=== PATIENT | female | born 1950 | race Caucasian/White ===

== ENCOUNTER 2017-01-15 09:57 | Observation (INO) | payer OTHER ==
[~2017-01-15] VITALS: Ht 165.1 cm; Wt 59.4 kg
[2017-01-15] MEDS ORDERED: SODIUM CHLORIDE 0.9% 1,000 ML IV ONE (10:44)
[2017-01-15] MEDS ORDERED: MORPHINE SULF INJ 2 MG/ML SYRINGE 1ML IV ONE (10:45)
[2017-01-15] MEDS ORDERED: ONDANSETRON HCL 4 MG/2 ML VIAL IV ONE (10:45)
[2017-01-15 11:35] LABS: Albumin 3.3 g/dL (3.4-5.0); Alkaline Phosphatase 105 U/L (45-117); Anion Gap 10 (5-15); Aspartate Aminotransferase 10 U/L (15-37); BUN/Creatinine Ratio 10.7; Basophils # (auto) 0 uL; Basophils % (auto) 0.3 % (0.0-2.0); Bilirubin, Total 0.4 mg/dL (0.2-1.0); Blood Urea Nitrogen 6 mg/dL (7-18); Calcium 8.8 mg/dL (8.5-10.1); Carbon Dioxide 27 mmol/L (21-32); Chloride 104 mmol/L (98-107); Eosinophils # (auto) 0 uL; Eosinophils % (auto) 0.3 % (0.0-7.0); GFR African American 140 mL/min; GFR Non-African American 115 mL/min; Glucose 113 mg/dL (74-106); Hematocrit 52.7 % (36.0-46.0); Hemoglobin 17.8 g/dL (12.2-16.2); Lymphocytes # (auto) 2.4 uL; Lymphocytes % (auto) 14.8 % (10.0-50.0); Magnesium 2.2 mg/dL (1.6-2.6); Mean Corpuscular Hemoglobin 30.5 pg (28.0-32.0); Mean Corpuscular Hgb Conc. 33.8 g/dL (32.0-36.0); Mean Corpuscular Volume 90.5 fL (80.0-100.0); Mean Platelet Volume 8.5 fL (7.4-10.4); Monocytes # (auto) 1.1 uL; Monocytes % (auto) 6.8 % (0.0-12.0); Neutrophils # (auto) 12.8 uL; Neutrophils % (auto) 77.8 % (37.0-80.0); Platelet Count (auto) 253 10^3/uL (140-450); Potassium 4.1 mmol/L (3.5-5.1); Red Cell Distribution Width 13.6 % (11.6-16.0); Sodium 141 mmol/L (136-145); Total Protein 7.5 g/dL (6.4-8.2); White Blood Cell 16.4 10^3/uL (4.4-10.8)
[2017-01-15 11:36] LABS: Cholesterol 198 mg/dL (< 200); HDL Cholesterol 44 mg/dL (40-59); LDL Cholesterol 128 mg/dL (< 100); Triglycerides 223 mg/dL (< 150)
[2017-01-15] MEDS ORDERED: LEVOFLOXACIN 500MG 100 ML IV ONE (13:30)
[2017-01-15 15:45] VITALS: BP 114/69
== END 2017-01-15 16:25 | disposition short-term general hospital (02) | DRG 313 ==
LOC: EDBD 09:57 → ER 10:00 → OVERFLOW 10:46 → ER 16:25
PROVIDERS: ADMIT Family Medicine; ATTEND Family Medicine
DX: R07.89 Other chest pain (principal); J44.1 Chronic obstructive pulmonary disease with (acute) exacerbation; D72.829 Elevated white blood cell count, unspecified; M81.0 Age-related osteoporosis without current pathological fracture; F41.9 Anxiety disorder, unspecified; E78.5 Hyperlipidemia, unspecified
CPT/HCPCS: 36415; 71010; 80053; 80061; 83735; 84443; 84484; 85025; 93005; 96365; 96375; 99281; G0378; J1956; J2270; J2405

== ENCOUNTER 2018-07-03 23:27 | Inpatient (IN) | payer OTHER ==
[~2018-07-03] VITALS: Ht 157.5 cm; Wt 68.1 kg
[2018-07-03 23:59] LABS: Basophils # (auto) 0.1 uL; Basophils % (auto) 0.6 % (0.0-2.0); Eosinophils # (auto) 0 uL; Eosinophils % (auto) 0.1 % (0.0-7.0); Hematocrit 47.7 % (36.0-46.0); Hemoglobin 15.8 g/dL (12.2-16.2); Lymphocytes # (auto) 2.1 uL; Lymphocytes % (auto) 24.3 % (10.0-50.0); Mean Corpuscular Hgb Conc. 33.1 g/dL (32.0-36.0); Mean Corpuscular Volume 90.5 fL (80.0-100.0); Neutrophils # (auto) 5.5 uL; Nucleated Red Blood Cells % 0.1 %; Platelet Count (auto) 173 10^3/uL (140-450); Red Blood Cells 5.27 10^6/uL (4.0-5.20); Red Cell Distribution Width 14.6 % (11.8-14.3); White Blood Cell 8.7 10^3/uL (4.4-10.8)
[2018-07-04] MEDS ORDERED: SODIUM CHLORIDE 0.9% 1,000 ML IV ONE (00:15)
[2018-07-04 00:16] LABS: Albumin 2.8 g/dL (3.4-5.0); BUN/Creatinine Ratio 7.3; Calcium 7.5 mg/dL (8.5-10.1); Potassium 3.9 mmol/L (3.5-5.1)
[2018-07-04 00:21] LABS: Bilirubin, Total 0.3 mg/dL (0.2-1.0); Total Protein 6.7 g/dL (6.4-8.2)
[2018-07-04] MEDS ORDERED: ALBUTEROL SULF 2.5 MG/0.5ML(0.5%) NEB SOLN NEB ONE (02:30)
[2018-07-04] MEDS ORDERED: IPRATROPIUM BROM 0.5 MG/2.5ML INH SOL NEB ONE (02:30)
[2018-07-04] MEDS ORDERED: ACETAMINOPHEN 325 MG TAB PO ONE (05:15)
[2018-07-04] MEDS ORDERED: ASPirin-EC 325mg tab PO ONE (05:45)
[2018-07-04] MEDS ORDERED: ENOXAPARIN SOD 80 MG/0.8ML SYRINGE SC ONE (06:15)
[2018-07-04] MEDS ORDERED: NITROGLYCERIN 0.4 MG SL TAB SL ONE (07:15)
[2018-07-04] MEDS ORDERED: ASPirin 81 mg TAB PO ONE (07:15)
[2018-07-04] MEDS ORDERED: ATORVASTATIN 20 MG TAB PO ONE (07:30)
[2018-07-04] MEDS ORDERED: MORPHINE SULFATE 4 MG/ML SYR/VIAL IV PRN (07:30)
[2018-07-04] MEDS ORDERED: ONDANSETRON HCL 4 MG/2 ML VIAL IV PRN (07:30)
[2018-07-04] MEDS ORDERED: NITROGLYCERIN 0.4 MG SL TAB SL PRN (07:30)
[2018-07-04] MEDS ORDERED: FUROSEMIDE 20 MG/2 ML VIAL IV ONE (07:30)
[2018-07-04] MEDS ORDERED: ACETAMINOPHEN 325 MG TAB PO PRN (07:30)
[2018-07-04 08:24] VITALS: BP 97/54
[2018-07-04] MEDS: FAMOTIDINE 20 MG TAB PO SCH ×2 (10:00→22:00)
[2018-07-04] MEDS: ASPirin 81 mg TAB PO SCH (10:03)
[2018-07-04] MEDS: HYDROcodone-ACET 5/325MG TAB PO PRN ×2 (10:09→21:06)
[2018-07-04] MEDS ORDERED: BACL10TA PO (13:10)
[2018-07-04] MEDS ORDERED: HYDR-4683 PO (13:10)
[2018-07-04] MEDS ORDERED: LORA2TAB89 PO (13:10)
[2018-07-04] MEDS ORDERED: TRAZ50TA2 PO (13:10)
[2018-07-04] MEDS ORDERED: OXY10CRT PO (13:10)
[2018-07-04] MEDS ORDERED: LISINOPRIL 20 MG TAB PO ONE (14:00)
[2018-07-04] MEDS ORDERED: METOPROLOL TARTRATE 50 MG TAB PO ONE (14:00)
[2018-07-04] MEDS: SODIUM CHLORIDE 0.9% 1,000 ML IV SCH ×2 (14:07→22:00)
[2018-07-04] MEDS ORDERED: LEVOFLOXACIN 500MG 100 ML IV ONE (14:15)
[2018-07-04] MEDS ORDERED: methylPREDNISolone SOD SUCC 125 MG/2 ML VL IV ONE (14:30)
[2018-07-04 15:36] LABS: Cholesterol 161 mg/dL (< 200); HDL Cholesterol 38 mg/dL (40-59); LDL Cholesterol 110 mg/dL (< 100); Triglycerides 181 mg/dL (< 150)
[2018-07-04 16:40] VITALS: BP 116/93
[2018-07-04 16:42] VITALS: BP 116/63
[2018-07-04] MEDS: ALBUTEROL SULF 2.5 MG/0.5ML(0.5%) NEB SOLN NEB PRN (19:07)
[2018-07-04] MEDS: IPRATROPIUM BROM 0.5 MG/2.5ML INH SOL NEB PRN (19:07)
[2018-07-04 22:00] VITALS: BP 112/76
[2018-07-04] MEDS ORDERED: METOPROLOL TARTRATE 50 MG TAB PO SCH (22:00)
[2018-07-04] MEDS: TEMAZEPAM 15 MG CAP PO PRN (22:08)
[2018-07-05] MEDS: HYDROcodone-ACET 5/325MG TAB PO PRN ×2 (01:22→06:27)
[2018-07-05] MEDS: ALBUTEROL SULF 2.5 MG/0.5ML(0.5%) NEB SOLN NEB PRN (01:49)
[2018-07-05] MEDS: IPRATROPIUM BROM 0.5 MG/2.5ML INH SOL NEB PRN (01:49)
[2018-07-05 05:00] VITALS: BP 135/70
[2018-07-05] MEDS: SODIUM CHLORIDE 0.9% 1,000 ML IV SCH ×3 (06:00→22:00)
[2018-07-05 07:25] LABS: Basophils # (auto) 0 uL; Basophils % (auto) 0.1 % (0.0-2.0); Eosinophils # (auto) 0 uL; Hematocrit 45.2 % (36.0-46.0); Lymphocytes # (auto) 1.1 uL; Lymphocytes % (auto) 18.7 % (10.0-50.0); Mean Corpuscular Hemoglobin 30.2 pg (28.0-32.0); Mean Corpuscular Hgb Conc. 33.3 g/dL (32.0-36.0); Mean Corpuscular Volume 90.8 fL (80.0-100.0); Monocytes # (auto) 0.6 uL; Monocytes % (auto) 10.3 % (0.0-12.0); Neutrophils % (auto) 70.9 % (37.0-80.0); Nucleated Red Blood Cells % 0.2 %; Platelet Count (auto) 156 10^3/uL (140-450); Red Blood Cells 4.98 10^6/uL (4.0-5.20); Red Cell Distribution Width 14.3 % (11.8-14.3); White Blood Cell 5.6 10^3/uL (4.4-10.8)
[2018-07-05 07:27] LABS: Albumin 2.8 g/dL (3.4-5.0); BUN/Creatinine Ratio 6.5; Bilirubin, Total 0.5 mg/dL (0.2-1.0); Calcium 8.2 mg/dL (8.5-10.1); Potassium 4.4 mmol/L (3.5-5.1); Total Protein 6.8 g/dL (6.4-8.2)
[2018-07-05 08:00] VITALS: BP 136/76
[2018-07-05] MEDS ORDERED: OPTISON 3ml Vial for INJ IV ONE (09:05)
[2018-07-05] MEDS ORDERED: LEVOFLOXACIN 500MG 100 ML IV SCH (10:00)
[2018-07-05] MEDS: LISINOPRIL 20 MG TAB PO SCH (10:00)
[2018-07-05] MEDS ORDERED: LEVOFLOXACIN 500 MG TAB PO ONE (11:30)
[2018-07-05] MEDS ORDERED: diphenhdrAMINE HCL 50 MG/1 ML VL IV PRN (11:30)
[2018-07-05] MEDS: ENOXAPARIN SOD 40 MG/0.4 ML SYRINGE SC SCH (11:58)
[2018-07-05] MEDS: ASPirin 81 mg TAB PO SCH (11:58)
[2018-07-05] MEDS: methylPREDNISolone SOD SUCC 125 MG/2 ML VL IV SCH ×2 (11:59→21:03)
[2018-07-05] MEDS: FAMOTIDINE 20 MG TAB PO SCH ×2 (11:59→21:04)
[2018-07-05] MEDS: HYDROcodone-ACET 7.5/325MG TAB PO PRN ×3 (12:00→21:47)
[2018-07-05 12:22] VITALS: BP 125/76
[2018-07-05 16:31] VITALS: BP 128/69
[2018-07-05] MEDS: LORazepam 0.5 MG TAB PO PRN (17:12)
[2018-07-05] MEDS: ATORVASTATIN 20 MG TAB PO SCH (21:04)
[2018-07-05 22:00] VITALS: BP 129/71
[2018-07-06] VITALS (7 sets, daily range): BP systolic 112–150; BP diastolic 62–70
[2018-07-06] MEDS: HYDROcodone-ACET 7.5/325MG TAB PO PRN ×4 (03:46→18:38)
[2018-07-06] MEDS: SODIUM CHLORIDE 0.9% 1,000 ML IV SCH ×3 (06:00→22:00)
[2018-07-06] MEDS: LORazepam 0.5 MG TAB PO PRN ×2 (08:10→20:03)
[2018-07-06] MEDS: ASPirin 81 mg TAB PO SCH (09:33)
[2018-07-06] MEDS: ENOXAPARIN SOD 40 MG/0.4 ML SYRINGE SC SCH (09:33)
[2018-07-06] MEDS: LEVOFLOXACIN 500 MG TAB PO SCH (09:34)
[2018-07-06] MEDS: methylPREDNISolone SOD SUCC 125 MG/2 ML VL IV SCH ×2 (09:34→21:48)
[2018-07-06] MEDS: FAMOTIDINE 20 MG TAB PO SCH ×2 (09:35→21:48)
[2018-07-06] MEDS: LISINOPRIL 20 MG TAB PO SCH (09:36)
[2018-07-06] MEDS: IPRATROPIUM BROM 0.5 MG/2.5ML INH SOL NEB PRN (19:06)
[2018-07-06] MEDS: ALBUTEROL SULF 2.5 MG/0.5ML(0.5%) NEB SOLN NEB PRN (19:06)
[2018-07-06] MEDS: TEMAZEPAM 15 MG CAP PO PRN (20:03)
[2018-07-06] MEDS: ATORVASTATIN 20 MG TAB PO SCH (21:48)
[2018-07-07 05:00] VITALS: BP 135/66
[2018-07-07 08:00] VITALS: BP 134/85
[2018-07-07 09:00] VITALS: BP 134/85
[2018-07-07 09:25] VITALS: BP 135/66
[2018-07-07] MEDS: LEVOFLOXACIN 500 MG TAB PO SCH (11:07)
[2018-07-07] MEDS: ASPirin 81 mg TAB PO SCH (11:07)
[2018-07-07] MEDS: methylPREDNISolone SOD SUCC 125 MG/2 ML VL IV SCH (11:07)
[2018-07-07] MEDS: HYDROcodone-ACET 7.5/325MG TAB PO PRN (11:08)
[2018-07-07] MEDS: FAMOTIDINE 20 MG TAB PO SCH (11:08)
[2018-07-07] MEDS: LISINOPRIL 20 MG TAB PO SCH (11:08)
[2018-07-07] MEDS: ENOXAPARIN SOD 40 MG/0.4 ML SYRINGE SC SCH (11:08)
[2018-07-07 13:00] VITALS: BP 135/77
[2018-07-07 14:22] VITALS: BP 135/77
== END 2018-07-07 15:30 | disposition home or self-care (01) | DRG 314 ==
LOC: ER 23:27 → EDBD 23:27 → TELE 23:28 → TELE-EAST 07-04 15:39
PROVIDERS: ADMIT Internal Medicine; ATTEND Family Medicine
DX: I95.9 Hypotension, unspecified (principal); J96.21 Acute and chronic respiratory failure with hypoxia; I50.43 Acute on chronic combined systolic (congestive) and diastolic (congestive) heart failure; J44.1 Chronic obstructive pulmonary disease with (acute) exacerbation; J44.0 Chronic obstructive pulmonary disease with (acute) lower respiratory infection; I11.0 Hypertensive heart disease with heart failure; R74.8 Abnormal levels of other serum enzymes; R79.1 Abnormal coagulation profile; K21.9 Gastro-esophageal reflux disease without esophagitis; M19.90 Unspecified osteoarthritis, unspecified site; J20.9 Acute bronchitis, unspecified; I70.0 Atherosclerosis of aorta; R79.89 Other specified abnormal findings of blood chemistry; E78.5 Hyperlipidemia, unspecified; F17.200 Nicotine dependence, unspecified, uncomplicated; Z81.8 Family history of other mental and behavioral disorders; Z79.82 Long term (current) use of aspirin; Z85.038 Personal history of other malignant neoplasm of large intestine; Z90.49 Acquired absence of other specified parts of digestive tract; Z92.21 Personal history of antineoplastic chemotherapy; Z92.3 Personal history of irradiation; Z88.8 Allergy status to other drugs, medicaments and biological substances; Z88.1 Allergy status to other antibiotic agents; Z88.0 Allergy status to penicillin; Z91.041 Radiographic dye allergy status
CPT/HCPCS: 36415; 36600; 71045; 78582; 80053; 80061; 82805; 83605; 83735; 83880; 84443; 84484; 85025; 85379; 93306; 93970; 94640; 96372; 96374; 96375; J1956; Q9956

== ENCOUNTER 2019-02-09 19:54 | Inpatient (IN) | payer OTHER ==
[~2019-02-09] VITALS: Ht 154.9 cm; Wt 67.1 kg
[~2019-02-09 19:54] MED LIST: BACL10TA PO; HYDR-4683 PO; LORA2TAB89 PO; OXY10CRT PO; TRAZ50TA2 PO
[2019-02-09 21:33] LABS: Basophils # (auto) 0.1 uL; Basophils % (auto) 0.7 % (0.0-2.0); Eosinophils # (auto) 0 uL; Eosinophils % (auto) 0.3 % (0.0-7.0); Hemoglobin 13.3 g/dL (12.2-16.2); Lymphocytes # (auto) 1.2 uL; Lymphocytes % (auto) 8.1 % (10.0-50.0); Mean Corpuscular Hemoglobin 30.2 pg (28.0-32.0); Mean Corpuscular Hgb Conc. 33.3 g/dL (32.0-36.0); Mean Corpuscular Volume 90.6 fL (80.0-100.0); Monocytes # (auto) 1.3 uL; Monocytes % (auto) 9.2 % (0.0-12.0); Neutrophils # (auto) 11.7 uL; Neutrophils % (auto) 81.7 % (37.0-80.0); Platelet Count (auto) 276 10^3/uL (140-450); Red Blood Cells 4.42 10^6/uL (4.0-5.20); Red Cell Distribution Width 15.1 % (11.8-14.3); White Blood Cell 14.3 10^3/uL (4.4-10.8)
[2019-02-09 21:38] LABS: INR 1.01 (0.9-1.15); Partial Thromboplastin Time 29.2 sec (23.78-33.04); Prothrombin Time 10.8 sec (9.27-12.13)
[2019-02-09 21:40] LABS: Albumin 3.1 g/dL (3.4-5.0); Calcium 8.3 mg/dL (8.5-10.1); Potassium 3.4 mmol/L (3.5-5.1)
[2019-02-09 21:44] LABS: BUN/Creatinine Ratio 5.9; Bilirubin, Total 0.4 mg/dL (0.2-1.0); Total Protein 7.4 g/dL (6.4-8.2)
[2019-02-10] MEDS ORDERED: SODIUM CHLORIDE 0.9% 1,000 ML IV ONE
[2019-02-10 01:35] LABS: Lactic Acid w/Reflex 2.3 mmol/L (0.4-2.0)
[2019-02-10] MEDS ORDERED: SODIUM CHLORIDE 0.9% 2,200 ML IV ONE (03:30)
[2019-02-10] MEDS ORDERED: VANCOMYCIN 1GM/250ML 250 ML IV ONE (03:45)
[2019-02-10] MEDS ORDERED: HYDROmorphone HCL 2 MG/ML VL IV ONE ×2 (04:15)
[2019-02-10 04:20] LABS: Urine Bacteria FEW /hpf (None Seen); Urine Blood 1+ /uL (Negative); Urine Specific Gravity 1.006 (1.001-1.035); Urine WBC 2 /hpf (0 - 5)
[2019-02-10] MEDS ORDERED: LEVOFLOXACIN 500MG 100 ML IV ONE (05:00)
[2019-02-10] MEDS ORDERED: PIPERACILLIN-TAZOB 3.375GM 100 ML IV SCH (06:00)
[2019-02-10 06:20] LABS: Fibrinogen 481.1 mg/dL (177-375); INR 1.01 (0.9-1.15); Partial Thromboplastin Time 29.9 sec (23.78-33.04); Prothrombin Time 10.8 sec (9.27-12.13)
[2019-02-10] MEDS ORDERED: FUROSEMIDE 20 MG/2 ML VIAL IV ONE (07:15)
[2019-02-10] MEDS ORDERED: ENOXAPARIN SOD 80 MG/0.8ML SYRINGE SC ONE (07:15)
[2019-02-10] MEDS ORDERED: POTASSIUM CHL 20 Meq TABLET PO ONE (07:15)
[2019-02-10] MEDS ORDERED: ATORVASTATIN 20 MG TAB PO ONE (07:15)
[2019-02-10] MEDS ORDERED: ONDANSETRON HCL 4 MG/2 ML VIAL IV ONE ×2 (08:15)
[2019-02-10] MEDS ORDERED: MORPHINE SULFATE 4 MG/ML SYR/VIAL IV ONE (08:15)
[2019-02-10] MEDS ORDERED: NITROGLYCERIN 0.4 MG SL TAB SL PRN (09:15)
[2019-02-10] MEDS ORDERED: MORPHINE SULF INJ 2 MG/ML SYRINGE 1ML IV PRN (09:15)
[2019-02-10] MEDS: ASPirin 81 mg TAB PO SCH (09:32)
[2019-02-10] MEDS ORDERED: methylPREDNISolone SOD SUCC 125 MG/2 ML VL IV ONE (11:15)
--- NOTE | 2019-02-10 11:16 | NUR ---
ORDER AND CLINICALS FAXED TO [facility] REQUESTING TRANSFER. PHONE NUMBER [phone]
[2019-02-10] MEDS: ALBUTEROL SULF 2.5 MG/0.5ML(0.5%) NEB SOLN NEB SCH ×4 (12:47→22:11)
[2019-02-10] MEDS: HYDROcodone-ACET 5/325MG TAB PO PRN ×2 (13:53→21:43)
[2019-02-10] MEDS: ONDANSETRON HCL 4 MG/2 ML VIAL IV PRN ×2 (13:53→21:45)
[2019-02-10] MEDS: FUROSEMIDE 40 MG/4 ML VIAL IV SCH ×2 (14:26→21:45)
--- NOTE | 2019-02-10 15:21 | NUR ---
TRANSFER SUMMARY FAXED TO [facility].
[2019-02-10] MEDS: VANCOMYCIN 1GM/250ML 250 ML IV SCH (17:04)
[2019-02-10] MEDS ORDERED: FUROSEMIDE 20 MG TAB PO SCH (18:00)
[2019-02-10 20:05] VITALS: BP 148/52
--- NOTE | 2019-02-10 20:05 | NUR ---
Admit to [facility] [address] admitted to [facility] via gurney on hotel service supervisor, and portable 02. Patient slowly walked to bed by self with stable gait, connected to unit monitoring and oxygen, and weighed by bedscale. Patient oriented to Sherry romero RN, unit, room, bed, and unit policies regarding patient care and visiting hours. All questions and concerns addressed, patient verbalized understanding. Pt is a&o x4. Breathing even and nonlabored with O2NC 3LPM, no s/s of distress. Moderate pain to the chest see Pain intervention. 22G saline lock at left arm, flushed well. Due to void. Non skid socks on. Instruct on POC and call for help, will monitor q1hr or as needed.
[2019-02-10 20:30] VITALS: BP 126/68
[2019-02-10] MEDS: ATORVASTATIN 20 MG TAB PO SCH (21:42)
[2019-02-10] MEDS: ENOXAPARIN SOD 80 MG/0.8ML SYRINGE SC SCH (21:43)
--- NOTE | 2019-02-10 22:20 | NUR ---
PT REQUESTED NOT TO BE WOKEN UP FOR 0200 SCHEDULED MED NEB TX. PT IS AWARE TO PAGE RT IF SHE WAKES UP SOB OR TX IS NEEDED.
[2019-02-11] VITALS: BP 140/61
--- NOTE | 2019-02-11 | NUR ---
Condition update Pt condition stable, pain controlled with [place]. Nausea subsided. OOB and able to walk to restroom with minimum help, stable gait. Continue care.
[2019-02-11] MEDS: VANCOMYCIN 1GM/250ML 250 ML IV SCH ×2 (03:53→16:00)
[2019-02-11 04:00] VITALS: BP 136/75
[2019-02-11] MEDS: ONDANSETRON HCL 4 MG/2 ML VIAL IV PRN ×2 (04:03→12:36)
[2019-02-11] MEDS: HYDROcodone-ACET 5/325MG TAB PO PRN ×2 (04:04→20:09)
--- NOTE | 2019-02-11 04:30 | NUR ---
IV insertion IV access obtained, via clean sterile technique by inserting 22 gauge catheter at after 1 attempt(s). IV secured properly. No trauma to site. Patient tolerated procedure well. IV removal IV DC'd with sterile technique at left FA due to leaking and tender, catheter fully intact. Pressure dressing applied to site. Patient tolerated procedure well.
[2019-02-11] MEDS: ALBUTEROL SULF 2.5 MG/0.5ML(0.5%) NEB SOLN NEB SCH ×5 (06:16→23:10)
[2019-02-11] MEDS: FUROSEMIDE 40 MG/4 ML VIAL IV SCH ×3 (06:43→22:24)
[2019-02-11 08:00] VITALS: BP 132/74
--- NOTE | 2019-02-11 08:00 | NUR ---
Opening Shift Note Assumed care of patient, awake and alert. No S/S of distress/SOB or pain. See interventions for complete assessment. Bed locked on low position, side rails up x2, call salas within reach, instructed on POC and to call for assist PRN, will continue to monitor for changes Q1hr and PRN.
--- NOTE | 2019-02-11 10:30 | NUR ---
Patient out of room to VQ scan.
--- NOTE | 2019-02-11 11:15 | NUR ---
Patient back to room from VQ scan.
[2019-02-11 12:00] VITALS: BP 139/67
[2019-02-11] MEDS: LEVOFLOXACIN 500MG 100 ML IV SCH (12:22)
[2019-02-11] MEDS: methylPREDNISolone SOD SUCC 40 MG/ML VL IV SCH (12:23)
[2019-02-11] MEDS: ASPirin 81 mg TAB PO SCH (12:23)
[2019-02-11] MEDS: ENOXAPARIN SOD 80 MG/0.8ML SYRINGE SC SCH ×2 (12:24→22:23)
--- NOTE | 2019-02-11 13:09 | NUR ---
Dr Lentz at bedside, updated on patient's status. Patient seen and examined. Will carry out new orders.
--- NOTE | 2019-02-11 13:11 | NUR ---
TRANSFER: Will work on transfer once Dr Lentz updates transfer summary and d/c order with todays date., then will fax to [facility]
--- NOTE | 2019-02-11 13:42 | NUR ---
Transfer: Todays progress notes, transfer summary and d/c order faxed to [facility]
[2019-02-11 16:00] VITALS: BP 135/76
[2019-02-11 20:00] VITALS: BP 142/79
[2019-02-11] MEDS: ATORVASTATIN 20 MG TAB PO SCH (22:24)
[2019-02-12] VITALS: BP 136/81
[2019-02-12] MEDS: HYDROcodone-ACET 5/325MG TAB PO PRN ×2 (01:40→09:30)
[2019-02-12] MEDS: ALBUTEROL SULF 2.5 MG/0.5ML(0.5%) NEB SOLN NEB SCH ×6 (02:00→22:30)
--- NOTE | 2019-02-12 02:00 | NUR ---
PT REFUSED NEB TX. PT RESTLESS IN BED AND STATED SHE DOES NOT WANT A BREATHING TX RIGHT NOW. NO RESP DISTRESS NOTED. BS CLEAR AND DIMINISHED. SP02 95% ON 2L NC.
--- NOTE | 2019-02-12 02:13 | NUR ---
Pt states anxiety and having an issue with lack of sleep and restless leg syndrome which she has not had in 15 years. States take Lorazepam 2mg PO at home. Called hospitalist and informed her of home med. New order for Lorazepam 1mg PO q12hr PRN anxiety. Will give when in pyxis, Pt stable and will continue to monitor.
[2019-02-12] MEDS ORDERED: LORazepam 0.5 MG TAB PO PRN (02:15)
[2019-02-12 04:00] VITALS: BP 121/97
[2019-02-12] MEDS: VANCOMYCIN 1GM/250ML 250 ML IV SCH (04:30)
[2019-02-12] MEDS: FUROSEMIDE 40 MG/4 ML VIAL IV SCH ×3 (06:37→22:42)
[2019-02-12] MEDS: ENOXAPARIN SOD 80 MG/0.8ML SYRINGE SC SCH ×2 (10:30→22:44)
[2019-02-12] MEDS: methylPREDNISolone SOD SUCC 40 MG/ML VL IV SCH (10:30)
[2019-02-12] MEDS: ASPirin 81 mg TAB PO SCH (10:30)
[2019-02-12] MEDS: LEVOFLOXACIN 500MG 100 ML IV SCH (11:30)
--- NOTE | 2019-02-12 11:40 | NUR ---
CALLED [facility]: UPDATE UPDATED [facility] ON PT'S CURRENT STATUS AND STABLE FOR TRANSFER IF CAN TODAY. CHERRY PICKER OPERATOR [facility]AN[facility] NOT AVAILABLE AT THIS TIME. WILL FAXED OVER PAPER WORK LATER ON TODAY. CONTINUE CARE.
--- NOTE | 2019-02-12 11:50 | NUR ---
IV insertion IV access obtained, via clean sterile technique by inserting 22 gauge catheter at RIGHT FA after 1 attempt. IV secured properly. No trauma to site. Patient tolerated well.
[2019-02-12 12:00] VITALS: BP 134/81
--- NOTE | 2019-02-12 13:13 | NUR ---
MIKEL CALLED: TRANSFER CENTER TALKED WITH MIKEL LUBIN. ON THE PHONE. UPDATED HER ON PT'S STATUS AND TELE ORDERS FOR TODAY. NO BED AVAILABLE AT THIS TIME. CONTINUE CARE.
[2019-02-12 15:51] VITALS: BP 132/68
[2019-02-12] MEDS: VANCOMYCIN 750 MG in D5W 5% 250 ML IV SCH (17:30)
--- NOTE | 2019-02-12 18:25 | NUR ---
TRANSFER TO TELE ROOM 222A REPORT GIVEN TO RAI GLOVER. TRANSFER CARE. ALL PATIENT BELONGINGS SENT WITH PATIENT TO NEW ROOM. PATIENT TAKEN IN WHEELCHAIR.
--- NOTE | 2019-02-12 18:30 | NUR ---
Received patient, as transfer, from [facility]. Pt alert and oriented. Pt denies pain or discomfort. Resp even, unlabored with O2 at 3L/n.c. IV patent, site clear to right forearm. Pt in no acute distress.
--- NOTE | 2019-02-12 19:30 | NUR ---
Opening Shift Note Assumed care of patient, awake and alert smiling and friendly. No S/S of distress/SOB, and pt denies pain. Instructed on POC and to call for assist PRN, will continue to monitor for changes PRN. Bed low with HOB in semi-Pollard's. Call light to R of pt in the bed.
[2019-02-12 22:00] VITALS: BP 132/65
--- NOTE | 2019-02-12 22:30 | NUR ---
Respiratory note: PT STATES SHE DOES NOT WANT TO BE WOKEN UP FOR NEXT SCHEDULED TX AT 0200
[2019-02-12] MEDS: ATORVASTATIN 20 MG TAB PO SCH (22:45)
[2019-02-12] MEDS: ONDANSETRON HCL 4 MG/2 ML VIAL IV PRN (22:48)
[2019-02-13] MEDS: ALBUTEROL SULF 2.5 MG/0.5ML(0.5%) NEB SOLN NEB SCH ×7 (02:00→22:28)
--- NOTE | 2019-02-13 02:14 | NUR ---
This RN called Roberto Hanson RN MANAGER HEMATOLOGY, hospitalist, after 12 lead EKG done after reporting changes in tele read outs to RAI Vences, CN. Hospitalist responded within 3 minutes. Read Tele reports with HR and EKG report ( NSR 100 with L axis deviation, RSR or QR pattern in V1 suggests R Vent conduction delay. Nonspecific T wave abnormality. Abnormal ECG.) to hospitalist. Pt asymptomatic - No n/v, lightheadedness, weakness or pain; reported this to hospitalist also. No new orders received.
--- NOTE | 2019-02-13 02:28 | NUR ---
Respiratory note: PT AWAKE BUT STATES SHE WANTS TO REFUSE MED NEB AT THIS TIME
[2019-02-13] MEDS: VANCOMYCIN 750 MG in D5W 5% 250 ML IV SCH ×2 (04:46→15:42)
[2019-02-13 05:00] VITALS: BP 122/67
[2019-02-13] MEDS ORDERED: SODIUM CHLORIDE 0.9 % NEB SOLN 3ML NEB ONE ×3 (05:22→13:57)
[2019-02-13] MEDS: FUROSEMIDE 40 MG/4 ML VIAL IV SCH ×3 (05:59→21:20)
[2019-02-13 07:28] LABS: Calcium 8.2 mg/dL (8.5-10.1)
[2019-02-13 07:31] LABS: BUN/Creatinine Ratio 9.1
[2019-02-13 07:45] LABS: Potassium 2.7 mmol/L (3.5-5.1)
--- NOTE | 2019-02-13 08:30 | NUR ---
Pt's K level showing 2.7. Dr. Barron informed. Orders received for potassium PO, and IV.
[2019-02-13] MEDS ORDERED: POTASSIUM CHL 20 Meq TABLET PO ONE (08:45)
[2019-02-13] MEDS ORDERED: POTASSIUM CHLORIDE 40 MEQ, LIDOCAINE 1% (LOCAL ANESTH.) 4 ML in SODIUM CHL 0.9% 100 ML IV ONE (08:45)
[2019-02-13 09:00] VITALS: BP 130/67
[2019-02-13] MEDS: HYDROcodone-ACET 5/325MG TAB PO PRN ×3 (09:02→21:28)
[2019-02-13] MEDS: LEVOFLOXACIN 500MG 100 ML IV SCH (09:23)
[2019-02-13] MEDS: ENOXAPARIN SOD 80 MG/0.8ML SYRINGE SC SCH ×2 (09:26→21:20)
[2019-02-13] MEDS: methylPREDNISolone SOD SUCC 40 MG/ML VL IV SCH (09:26)
[2019-02-13] MEDS: ASPirin 81 mg TAB PO SCH (09:26)
[2019-02-13] MEDS ORDERED: LEVOFLOXACIN 250MG 50 ML IV ONE (09:30)
--- NOTE | 2019-02-13 10:00 | NUR ---
Call placed to [facility], at regarding status of pt's transfer. Spoke with Lidya, Hydrodynamicist. She stated that pt had stated that she did not want to be transferred to [facility]. Dr. Barron informed.
--- NOTE | 2019-02-13 11:00 | NUR ---
Call received from Lidya, Drum Straightener, from [facility] regarding update on pt's status to transfer. She confirmed that under pt's current policy, she would not be held financially responsible for care received at [facility] during this admission. Dr. Barron informed. He stated that pt will be discharged home tomorrow, 02/14. Pt informed.
--- NOTE | 2019-02-13 11:00 | NUR ---
I spoke with pt to confirm her desire not to be transferred to [facility]. Dr. Barron informed, and he stated concern that pt might be partially, financially responsible for hospitalization if not transferred to [facility] at this time. Pt stated that her particular medical insurance policy, with [facility], precludes her from any financial responsibility.
--- NOTE | 2019-02-13 11:30 | NUR ---
Call received from department of case management at [facility] for status of pt's transfer. I informed them of pt's continued desire not to be transferred to [facility], and that Dr. Tabor stated that he will discharge pt home in tomorrow 02/14.
--- NOTE | 2019-02-13 11:54 | NUR ---
Nutrition Assessment Notes please see attached link for complete assessment Est. Needs BW [id number] kcal (23-25 kcal/kgBW), 53-67 gms pro (0.8-1.0 gms/kgBW r/t elev RFT. Will continue to monitor pertinent labs and reassess nutrient need prn Addendum: 02/13/19 at [address] Amended: Links added.
[2019-02-13] MEDS ORDERED: VANCOMYCIN PER PHARMACY 0 MG IV SCH (12:00)
[2019-02-13 12:06] LABS: Basophils # (auto) 0 uL; Basophils % (auto) 0.3 % (0.0-2.0); Eosinophils # (auto) 0 uL; Eosinophils % (auto) 0.2 % (0.0-7.0); Hemoglobin 11.8 g/dL (12.2-16.2); Lymphocytes # (auto) 0.8 uL; Lymphocytes % (auto) 9.3 % (10.0-50.0); Mean Corpuscular Hgb Conc. 33.6 g/dL (32.0-36.0); Mean Corpuscular Volume 89.1 fL (80.0-100.0); Monocytes # (auto) 0.9 uL; Monocytes % (auto) 10.1 % (0.0-12.0); Neutrophils # (auto) 6.9 uL; Neutrophils % (auto) 80.1 % (37.0-80.0); Platelet Count (auto) 241 10^3/uL (140-450); Red Blood Cells 3.93 10^6/uL (4.0-5.20); Red Cell Distribution Width 14.8 % (11.8-14.3); White Blood Cell 8.6 10^3/uL (4.4-10.8)
[2019-02-13 12:28] LABS: INR 0.99 (0.9-1.15); Partial Thromboplastin Time 31.4 sec (23.78-33.04); Prothrombin Time 10.6 sec (9.27-12.13)
[2019-02-13 13:23] VITALS: BP 129/77
[2019-02-13 17:00] VITALS: BP 136/83
[2019-02-13] MEDS ORDERED: WARFARIN SODIUM 5 MG TAB PO ONE (17:00)
--- NOTE | 2019-02-13 19:30 | NUR ---
OPENING SHIFT NOTE RECEIVED REPORT FROM DAYSHIFT RN. PATIENT RESTING COMFORTABLY IN BED WATCHING TELEVISION. NO S/S OF DISTRESS OR SOB. NO PAIN NOTED OR REPORTED. PATIENT A/O X4, AMBULATORY. UPDATED PATIENT ON POC, VERBALIZED UNDERSTANDING. BED LOCKED IN LOW POSITION, CALL LIGHT WITHIN REACH. WILL CONTINUE TO MONITOR PATIENT Q1HR AND PRN.
[2019-02-13 19:53] VITALS: BP 136/83
[2019-02-13] MEDS: ATORVASTATIN 20 MG TAB PO SCH (21:20)
[2019-02-13 21:37] VITALS: BP 138/69
--- NOTE | 2019-02-13 22:20 | NUR ---
Respiratory note: PT WANTS TO REFUSE NEXT SCHEDULED MED NEB TX, PT NOTIFIED TO CALL RT IF SOB OCCURS
[2019-02-14] MEDS: VANCOMYCIN 750 MG in D5W 5% 250 ML IV SCH (03:44)
[2019-02-14] MEDS: ALBUTEROL SULF 2.5 MG/0.5ML(0.5%) NEB SOLN NEB SCH ×3 (05:41→13:51)
[2019-02-14 05:52] VITALS: BP 134/76
[2019-02-14] MEDS: FUROSEMIDE 40 MG/4 ML VIAL IV SCH ×2 (06:01→13:37)
[2019-02-14 06:53] LABS: INR 0.94 (0.9-1.15); Prothrombin Time 10.1 sec (9.27-12.13)
--- NOTE | 2019-02-14 08:35 | NUR ---
PT RESTING IN BED, NO DISTRESS NOTED. PT DENIES PAIN AT THIS TIME. PT ENCOURAGED TO USE CALL LIGHT PRN, WILL CONTINUE TO MONITOR.
[2019-02-14 09:00] VITALS: BP 145/88
[2019-02-14] MEDS: methylPREDNISolone SOD SUCC 40 MG/ML VL IV SCH (10:06)
[2019-02-14] MEDS: ASPirin 81 mg TAB PO SCH (10:06)
[2019-02-14] MEDS: ENOXAPARIN SOD 80 MG/0.8ML SYRINGE SC SCH (10:07)
[2019-02-14 11:55] LABS: BUN/Creatinine Ratio 11.6; Calcium 8.5 mg/dL (8.5-10.1)
--- NOTE | 2019-02-14 12:33 | NUR ---
Pt reports she spoke with MD and is being discharged today, no discharge orders yet. Called Dr Barron and left message to see if pt is to be discharged and informed MD pt potassium level is 3.0. Awaiting call back, will continue to monitor.
[2019-02-14] MEDS ORDERED: POTASSIUM CHLORIDE 20 MEQ, LIDOCAINE 1% (LOCAL ANESTH.) 2 ML in SODIUM CHL 0.9% 100 ML IV ONE (12:45)
[2019-02-14] MEDS ORDERED: POTASSIUM CHL 20 Meq TABLET PO ONE ×3 (12:45→13:35)
[2019-02-14 13:00] VITALS: BP 142/86
--- NOTE | 2019-02-14 13:47 | NUR ---
PT REPORTS SHE NEEDS TO BE DISCHARGED BY 2:30, IV POTASSIUM CHANGED TO PO. Addendum: 02/14/19 at 1447 by EMERALD SERRANO RN NOTIFIED PT RUNNING SINUS TACH 109. AWARE, NO NEW ORDERS.
--- NOTE | 2019-02-14 13:51 | NUR ---
Respiratory note: PT REFUSED MEDNEB AT THIS TIME. PT IN NO DISTRESS. BS ARE CLEAR TO DIM BILATERALLY. PT KNOWS TO CALL IF SOB.
[2019-02-14 13:54] VITALS: BP 142/86
--- NOTE | 2019-02-14 14:47 | NUR ---
Discharge instructions given as ordered. Encourage to follow up with PMD at [facility] as instructed. All questions and concerns addressed. Patient verbalized understanding. Medication reconciliation form completed and copy given to patient. IV removed with catheter intact, pressure dressing applied. Telemetry unit returned to ICU. Patient taken to vehicle via wheelchair with all personal belongings, accompanied by staff and spouse. No distress noted at time of departure.
[2019-02-15] MEDS ORDERED: LEVOFLOXACIN 750MG 150 ML IV SCH (10:00)
== END 2019-02-14 14:30 | disposition home or self-care (01) | DRG 862 ==
LOC: ER 19:54 → EDBD 19:54 → TELE 02-10 09:08 → DOU IN ICU 02-10 20:00 → TELE-CENTR 02-12 18:27
PROVIDERS: ADMIT Nurse Practitioner; ATTEND Internal Medicine
DX: T81.44XA Sepsis following a procedure, initial encounter (principal); I21.4 Non-ST elevation (NSTEMI) myocardial infarction; J96.90 Respiratory failure, unspecified, unspecified whether with hypoxia or hypercapnia; I50.43 Acute on chronic combined systolic (congestive) and diastolic (congestive) heart failure; J15.9 Unspecified bacterial pneumonia; J44.0 Chronic obstructive pulmonary disease with (acute) lower respiratory infection; J44.1 Chronic obstructive pulmonary disease with (acute) exacerbation; J98.01 Acute bronchospasm; I70.0 Atherosclerosis of aorta; I11.0 Hypertensive heart disease with heart failure; I08.0 Rheumatic disorders of both mitral and aortic valves; K57.30 Diverticulosis of large intestine without perforation or abscess without bleeding; F17.210 Nicotine dependence, cigarettes, uncomplicated; Z90.710 Acquired absence of both cervix and uterus; Z85.038 Personal history of other malignant neoplasm of large intestine; Z81.8 Family history of other mental and behavioral disorders; Z90.49 Acquired absence of other specified parts of digestive tract; Z88.1 Allergy status to other antibiotic agents; Z88.8 Allergy status to other drugs, medicaments and biological substances; Z88.6 Allergy status to analgesic agent; Z88.2 Allergy status to sulfonamides; Y92.89 Other specified places as the place of occurrence of the external cause; Y83.8 Other surgical procedures as the cause of abnormal reaction of the patient, or of later complication, without mention of misadventure at the time of the procedure; Z79.899 Other long term (current) drug therapy
CPT/HCPCS: 36415; 36600; 71045; 71250; 74176; 78582; 80048; 80053; 80202; 81001; 82805; 83036; 83605; 83880; 84484; 85025; 85379; 85384; 85610; 85730; 86850; 86900; 86901; 87040; 87081; 87086; 93005; 93306; 94640; 96365; 96366; 96367; 96372; 96375; 96376; G0378; J1956; J2001; J2405; J7060

== ENCOUNTER 2019-02-15 15:41 | Emergency (ER) | payer OTHER ==
[~2019-02-15] VITALS: Ht 154.9 cm; Wt 63.5 kg
[2019-02-15 17:07] LABS: Basophils # (auto) 0.1 uL; Basophils % (auto) 0.7 % (0.0-2.0); Eosinophils # (auto) 0.1 uL; Eosinophils % (auto) 0.9 % (0.0-7.0); Hematocrit 39.3 % (36.0-46.0); Hemoglobin 13.4 g/dL (12.2-16.2); Lymphocytes # (auto) 2.9 uL; Lymphocytes % (auto) 22.3 % (10.0-50.0); Mean Corpuscular Hemoglobin 30.2 pg (28.0-32.0); Mean Corpuscular Hgb Conc. 34.1 g/dL (32.0-36.0); Mean Corpuscular Volume 88.5 fL (80.0-100.0); Monocytes # (auto) 1.2 uL; Monocytes % (auto) 9.6 % (0.0-12.0); Neutrophils # (auto) 8.5 uL; Neutrophils % (auto) 66.5 % (37.0-80.0); Nucleated Red Blood Cells % 0.1 %; Platelet Count (auto) 339 10^3/uL (140-450); Red Blood Cells 4.44 10^6/uL (4.0-5.20); Red Cell Distribution Width 14.7 % (11.8-14.3); White Blood Cell 12.9 10^3/uL (4.4-10.8)
[2019-02-15 17:13] LABS: Albumin 3.4 g/dL (3.4-5.0); Calcium 8.8 mg/dL (8.5-10.1); Potassium 3.3 mmol/L (3.5-5.1)
[2019-02-15 17:15] LABS: BUN/Creatinine Ratio 12.9
[2019-02-15 17:22] LABS: Bilirubin, Total 0.3 mg/dL (0.2-1.0); Total Protein 7.6 g/dL (6.4-8.2)
[2019-02-15 17:45] LABS: INR 0.95 (0.9-1.15); Partial Thromboplastin Time 29.8 sec (23.78-33.04); Prothrombin Time 10.2 sec (9.27-12.13)
[2019-02-15] MEDS ORDERED: POTASSIUM CHL 20 Meq TABLET PO ONE (20:15)
[2019-02-15 20:25] VITALS: BP 128/96
[2019-02-16] MEDS ORDERED: fentaNYL CITRATE 100 MCG/2 ML VL ONE (07:23)
[2019-02-16] MEDS ORDERED: MORPHINE SULF(PF) 0.5MG/ML 10ML VIAL ONE (07:23)
[2019-02-16] MEDS ORDERED: MIDAZOLAM HCL 1MG/1ML-2 ML VIAL ONE (07:24)
[2019-02-16] MEDS ORDERED: OXYTOCIN 10 UNIT/ML 10ML VIAL ONE (07:49)
[2019-02-16] MEDS ORDERED: PHENYLEPHRINE HCL 10 MG/ML VL ONE (07:51)
== END 2019-02-15 20:38 | disposition home or self-care (01) ==
LOC: ER 15:41
DX: J44.1 Chronic obstructive pulmonary disease with (acute) exacerbation (principal); R07.89 Other chest pain; D72.829 Elevated white blood cell count, unspecified; I12.9 Hypertensive chronic kidney disease with stage 1 through stage 4 chronic kidney disease, or unspecified chronic kidney disease; N18.9 Chronic kidney disease, unspecified; F17.210 Nicotine dependence, cigarettes, uncomplicated; Z79.899 Other long term (current) drug therapy; Z88.1 Allergy status to other antibiotic agents; Z88.0 Allergy status to penicillin; Z88.2 Allergy status to sulfonamides; Z88.8 Allergy status to other drugs, medicaments and biological substances
CPT/HCPCS: 36415; 71045; 80053; 83735; 83880; 84484; 85025; 85610; 85730; 93005; 94761

== ENCOUNTER 2019-02-24 20:36 | Emergency (ER) | payer OTHER ==
[~2019-02-24] VITALS: Ht 154.9 cm; Wt 63.5 kg
[2019-02-24 22:39] LABS: Basophils # (auto) 0.1 uL; Basophils % (auto) 0.7 % (0.0-2.0); Eosinophils # (auto) 0.1 uL; Eosinophils % (auto) 0.8 % (0.0-7.0); Hematocrit 41.3 % (36.0-46.0); Hemoglobin 13.8 g/dL (12.2-16.2); Lymphocytes # (auto) 2.4 uL; Lymphocytes % (auto) 16.5 % (10.0-50.0); Mean Corpuscular Hemoglobin 30.1 pg (28.0-32.0); Mean Corpuscular Hgb Conc. 33.3 g/dL (32.0-36.0); Mean Corpuscular Volume 90.3 fL (80.0-100.0); Monocytes # (auto) 1.1 uL; Monocytes % (auto) 7.7 % (0.0-12.0); Neutrophils # (auto) 10.6 uL; Neutrophils % (auto) 74.3 % (37.0-80.0); Platelet Count (auto) 383 10^3/uL (140-450); Red Blood Cells 4.58 10^6/uL (4.0-5.20); Red Cell Distribution Width 14.8 % (11.8-14.3); White Blood Cell 14.3 10^3/uL (4.4-10.8)
[2019-02-24 22:51] LABS: Alanine Aminotransferase 14 U/L (13-56); Albumin 3.2 g/dL (3.4-5.0); Anion Gap 10 (5-15); Aspartate Aminotransferase 16 U/L (15-37); BUN/Creatinine Ratio 5.6; Blood Urea Nitrogen 6 mg/dL (7-18); Calcium 8.7 mg/dL (8.5-10.1); Carbon Dioxide 28 mmol/L (21-32); Chloride 94 mmol/L (98-107); GFR African American 66 mL/min; GFR Non-African American 54 mL/min; Glucose 155 mg/dL (74-106); Potassium 3.4 mmol/L (3.5-5.1); Sodium 132 mmol/L (136-145)
[2019-02-24 22:54] LABS: Alkaline Phosphatase 125 U/L (45-117); Bilirubin, Total 0.4 mg/dL (0.2-1.0)
[2019-02-25] MEDS ORDERED: KETOROLAC TROMETH 30 MG/ML 1ML VIAL IV ONE (06:00)
[2019-02-25] MEDS ORDERED: KETOROLAC TROMETH 60MG/2ML VIAL IM ONE (06:00)
[2019-02-25] MEDS ORDERED: CARISOPRODOL 350 MG TAB PO ONE (06:00)
[2019-02-25] MEDS ORDERED: POTASSIUM EFFERVESENT TAB 25 MEQ PO ONE (06:45)
[2019-02-25 06:46] LABS: Urine Bacteria NONE SEEN /hpf (None Seen); Urine Blood 1+ /uL (Negative); Urine Specific Gravity 1.004 (1.001-1.035); Urine WBC 1 /hpf (0 - 5)
[2019-02-25 08:20] VITALS: BP 147/86
== END 2019-02-25 09:35 | disposition home or self-care (01) ==
LOC: EDBD 20:36 → ER 21:01
DX: S33.5XXA Sprain of ligaments of lumbar spine, initial encounter (principal); J44.9 Chronic obstructive pulmonary disease, unspecified; I12.9 Hypertensive chronic kidney disease with stage 1 through stage 4 chronic kidney disease, or unspecified chronic kidney disease; N18.9 Chronic kidney disease, unspecified; F17.210 Nicotine dependence, cigarettes, uncomplicated; Z90.49 Acquired absence of other specified parts of digestive tract; Z88.0 Allergy status to penicillin; Z88.2 Allergy status to sulfonamides; Z88.1 Allergy status to other antibiotic agents; Z90.710 Acquired absence of both cervix and uterus; X58.XXXA Exposure to other specified factors, initial encounter; Y93.89 Activity, other specified; Y92.89 Other specified places as the place of occurrence of the external cause; Y99.8 Other external cause status
CPT/HCPCS: 36415; 80053; 81001; 85025; 96374; 99283; J1885

== ENCOUNTER 2019-08-10 09:11 | Inpatient (IN) | payer OTHER ==
[2019-08-10] VITALS (16 sets, daily range): BP systolic 94–155; BP diastolic 42–63
[~2019-08-10] VITALS: Ht 165.1 cm; Wt 65.9 kg
[~2019-08-10 09:11] MED LIST changes: -HYDR-4683 PO; +HYDR-4833 PO
[2019-08-10] MEDS ORDERED: methylPREDNISolone SOD SUCC 125 MG/2 ML VL ONE (09:12)
[2019-08-10] MEDS ORDERED: SODIUM CHLORIDE 0.9% 1,000 ML IV ONE (09:15)
[2019-08-10] MEDS ORDERED: methylPREDNISolone SOD SUCC 125 MG/2 ML VL IV ONE (09:15)
[2019-08-10] MEDS ORDERED: LORazepam 2MG/ML-1ML VIAL ONE (09:29)
[2019-08-10 09:32] LABS: Eosinophils # (auto) 0.2 uL; Eosinophils % (auto) 1.2 % (0.0-7.0); Nucleated Red Blood Cells % 0.1 %; Red Cell Distribution Width 19.5 % (11.8-14.3)
[2019-08-10 09:34] LABS: Basophils # (auto) 0.2 uL; Hematocrit 44.6 % (36.0-46.0); Hemoglobin 14.4 g/dL (12.2-16.2); Lymphocytes # (auto) 4.6 uL; Lymphocytes % (auto) 24.4 % (10.0-50.0); Mean Corpuscular Hemoglobin 26.8 pg (28.0-32.0); Mean Corpuscular Hgb Conc. 32.4 g/dL (32.0-36.0); Mean Corpuscular Volume 82.7 fL (80.0-100.0); Monocytes # (auto) 1.6 uL; Monocytes % (auto) 8.5 % (0.0-12.0); Neutrophils # (auto) 12.3 uL; Neutrophils % (auto) 64.9 % (37.0-80.0); Platelet Count (auto) 435 10^3/uL (140-450); Red Blood Cells 5.39 10^6/uL (4.0-5.20); White Blood Cell 18.9 10^3/uL (4.4-10.8)
[2019-08-10] MEDS ORDERED: SUCCINYLCHOLINE CHLORIDE 20 MG/ML 10ML VIAL IV ONE (09:35)
[2019-08-10] MEDS ORDERED: ETOMIDATE (2MG/ML) 20ML VIAL IV ONE (09:35)
[2019-08-10] MEDS: NOREPINEPHRINE 8 MG/250ML KIT 250 ML IV SCH (09:39)
[2019-08-10] MEDS ORDERED: MIDAZOLAM HCL 5 MG/ML-1ML VIAL ONE (09:39)
[2019-08-10] MEDS ORDERED: PHENYLEPHRINE INJ 20 MG in SODIUM CHL 0.9% 250 ML IV SCH (09:39)
[2019-08-10] MEDS ORDERED: MIDAZOLAM DRIP 50 mg/50mL 50 ML IV ONE (09:41)
[2019-08-10] MEDS ORDERED: LORazepam 2MG/ML-1ML VIAL IV ONE (09:45)
[2019-08-10] MEDS ORDERED: MIDAZOLAM HCL 5 MG/ML-1ML VIAL IV ONE (09:45)
[2019-08-10] MEDS: MIDAZOLAM DRIP 50 mg/50mL 50 ML IV SCH ×2 (09:52→22:18)
[2019-08-10 09:57] LABS: Albumin 3.1 g/dL (3.4-5.0); BUN/Creatinine Ratio 5.4; Potassium 3.9 mmol/L (3.5-5.1)
[2019-08-10 09:59] LABS: Bilirubin, Total 0.3 mg/dL (0.2-1.0); Total Protein 7.9 g/dL (6.4-8.2)
[2019-08-10 10:02] LABS: Lactic Acid w/Reflex 2.9 mmol/L (0.4-2.0)
[2019-08-10 10:04] LABS: Magnesium 2.2 mg/dL (1.6-2.6)
[2019-08-10] MEDS ORDERED: FUROSEMIDE 40 MG/4 ML VIAL IV ONE (10:15)
[2019-08-10] MEDS ORDERED: MORPHINE SULF INJ 2 MG/ML SYRINGE 1ML IV ONE (10:15)
[2019-08-10 10:33] LABS: Urine Bacteria FEW /hpf (None Seen); Urine Blood TRACE /uL (Negative); Urine Specific Gravity 1.008 (1.001-1.035); Urine WBC 1 /hpf (0 - 5)
[2019-08-10] MEDS ORDERED: fentaNYL Drip 2500mCg/250mlNS 250 ML IV ONE (12:03)
[2019-08-10] MEDS ORDERED: ONDANSETRON HCL 4 MG/2 ML VIAL IV PRN (12:15)
[2019-08-10] MEDS ORDERED: IPRATROPIUM BROM 0.5 MG/2.5ML INH SOL NEB SCH (12:15)
[2019-08-10] MEDS ORDERED: NITROGLYCERIN 0.4 MG SL TAB SL PRN (12:15)
[2019-08-10] MEDS ORDERED: MORPHINE SULF INJ 2 MG/ML SYRINGE 1ML IV PRN (12:15)
[2019-08-10] MEDS ORDERED: DEXTROSE (50%) 50ML SYRG IV PRN (12:15)
[2019-08-10] MEDS: fentaNYL Drip 2500mCg/250mlNS 250 ML IV SCH (13:10)
[2019-08-10] MEDS: InsuLIN REG 1unit/0.01ml Soln (100units/ml) SC SCH (18:00)
[2019-08-10] MEDS: ACCU-CHEK COMFORT CURVE STRIP VI SCH (18:00)
[2019-08-10] MEDS: ALBUTEROL SULF 2.5 MG/0.5ML(0.5%) NEB SOLN NEB SCH (18:00)
[2019-08-10] MEDS: IPRATROPIUM BROM 0.5 MG/2.5ML INH SOL NEB SCH (18:00)
[2019-08-10] MEDS: FUROSEMIDE 20 MG/2 ML VIAL IV SCH (18:27)
[2019-08-10 18:45] LABS: INR < 0.93 (0.9-1.15); Partial Thromboplastin Time 23.4 sec (23.64-32.05)
--- NOTE | 2019-08-10 20:20 | NUR ---
PT. ARRIVED FROM ER AND PLACED IN ICU BED #112; PT. PLACED ON BEDSIDE MONITOR; SEE IV SPREADSHEET FOR GTTS; VS STABLE AT THIS TIME; PT. IS LIGHTLY SEDATED AND ANSWERING SIMPLE QUESTIONS WITH HEAD NOD YES OR NO- WILL TITRATE SEDATION FOR PT. COMFORT; WILL CONT. TO MONITOR PT.
[2019-08-10] MEDS: BUDESONIDE (INHALATION) 0.5 MG/2 ML NEB NEB SCH (22:00)
[2019-08-11] VITALS (102 sets, daily range): BP systolic 105–164; BP diastolic 41–76
[2019-08-11] MEDS: ALBUTEROL SULF 2.5 MG/0.5ML(0.5%) NEB SOLN NEB SCH ×3 (00:11→18:08)
[2019-08-11] MEDS: IPRATROPIUM BROM 0.5 MG/2.5ML INH SOL NEB SCH ×4 (00:11→18:08)
[2019-08-11] MEDS: InsuLIN REG 1unit/0.01ml Soln (100units/ml) SC SCH ×4 (02:00→17:52)
[2019-08-11] MEDS: ACCU-CHEK COMFORT CURVE STRIP VI SCH ×4 (02:00→17:52)
--- NOTE | 2019-08-11 02:00 | NUR ---
BS= 88.
[2019-08-11 04:09] LABS: Basophils # (auto) 0 uL; Eosinophils # (auto) 0 uL; Eosinophils % (auto) 0.1 % (0.0-7.0); Mean Corpuscular Volume 80.7 fL (80.0-100.0)
[2019-08-11 04:14] LABS: Basophils % (auto) 0.4 % (0.0-2.0); Hemoglobin 11.8 g/dL (12.2-16.2); Lymphocytes # (auto) 1.6 uL; Lymphocytes % (auto) 13.8 % (10.0-50.0); Mean Corpuscular Hemoglobin 26.4 pg (28.0-32.0); Mean Corpuscular Hgb Conc. 32.7 g/dL (32.0-36.0); Monocytes # (auto) 1.2 uL; Monocytes % (auto) 10.4 % (0.0-12.0); Neutrophils # (auto) 8.9 uL; Neutrophils % (auto) 75.3 % (37.0-80.0); Platelet Count (auto) 262 10^3/uL (140-450); Red Blood Cells 4.47 10^6/uL (4.0-5.20); Red Cell Distribution Width 18.7 % (11.8-14.3); White Blood Cell 11.8 10^3/uL (4.4-10.8)
[2019-08-11 04:33] LABS: Calcium 7.7 mg/dL (8.5-10.1); Potassium 3.4 mmol/L (3.5-5.1)
[2019-08-11 04:35] LABS: BUN/Creatinine Ratio 12.2
[2019-08-11] MEDS: BUDESONIDE (INHALATION) 0.5 MG/2 ML NEB NEB SCH ×2 (06:18→22:12)
[2019-08-11] MEDS: FUROSEMIDE 20 MG/2 ML VIAL IV SCH ×2 (07:04→17:43)
--- NOTE | 2019-08-11 07:30 | NUR ---
OPENING SHIFT NOTE REPORT RECEIVED FROM RES COUNSELOR RN, MORNING ASSESSMENT PERFORMED AND DOCUMENTED. 69 YEAR OLD FEMALE RESTING IN BED WITH EYES CLOSED, MECHANICALLY VENTILATED AND SEDATED. PATIENT ALERT WHEN CALLED BY NAME AND ABLE TO FOLLOW COMMANDS. DISCUSSED PLAN OF CARE WITH PATIENT, PATIENT NODDED HEAD YES. VITAL SIGNS STABLE AND DOCUMENTED. CALVO CATHETER DRAINING CLEAR YELLOW URINE WITH SEDIMENT TO GRAVITY. COMFORT MEASURES PROVIDED AND MITTENS TO BILATERAL HANDS APPLIED FOR SAFETY PRECAUTIONS TO PREVENT PATIENT FROM SELF EXTUBATING SINCE RASS - AWAKE AND CALM. FALL AND SAFETY PRECAUTIONS IN PLACE.
[2019-08-11] MEDS: fentaNYL Drip 2500mCg/250mlNS 250 ML IV SCH (08:00)
--- NOTE | 2019-08-11 09:23 | NUR ---
MESSAGE LEFT FOR PULMONOLOGY DR JAY TO UPDATE HIM ON MORNING ABG AND CURRENT VENT SETTINGS, AWAITING RESPONSE.
[2019-08-11] MEDS: NOREPINEPHRINE 8 MG/250ML KIT 250 ML IV SCH (09:39)
[2019-08-11] MEDS ORDERED: AZITHROMYCIN 500MG/ 250ML 250 ML IV SCH (10:00)
[2019-08-11] MEDS: FAMOTIDINE 20 MG TAB PO SCH (10:27)
[2019-08-11] MEDS: cefTRIAXone 1GM/50ML D5W 50 ML IV SCH (10:27)
[2019-08-11] MEDS: MIDAZOLAM DRIP 50 mg/50mL 50 ML IV SCH (10:31)
--- NOTE | 2019-08-11 12:00 | NUR ---
FAMILY AT BEDSIDE PATIENT'S SPOUSE AT BEDSIDE, UPDATED ON PATIENT'S STATUS, VERBALIZED UNDERSTANDING.
--- NOTE | 2019-08-11 13:19 | NUR ---
HOSPITALIST AT BEDSIDE DR NIXON UPDATED ON PATIENT'S STATUS, LABS, CHEST XRAY AND MEDICAL HISTORY. ORDERS RECEIVED WILL BE CARRIED OUT.
--- NOTE | 2019-08-11 13:27 | NUR ---
1300 08/11/19 Contacted entry level financial analystrhett Bear at [facility] and requested authorization to be provided for continued stay. Per entry level financial analyst Marianela they did receive clinical information today, but it was for 08/10. Faxed clinical information for 08/11 as requested to [phone], she said once they receive the information Image Processing Engineer Mark will review it before further authorization can be provided. I requested that Image Processing Engineer Mark contact me regarding the authorization.
--- NOTE | 2019-08-11 13:30 | NUR ---
CALL RECEIVED FROM FAMILY/ADM ASSESSMENT COMPLETED PHONE CALL RECEIVED FROM PATIENT'S SPOUSE CORINA TO UPDATE HOME MEDICATION. ADMISSION ASSESSMENT COMPLETED AT THIS TIME.
[2019-08-11] MEDS ORDERED: POM (15:52)
[2019-08-11] MEDS ORDERED: CARB200T PO (15:52)
[2019-08-11] MEDS ORDERED: POTASSIUM CHL 20MEQ/100ML 100 ML IV ONE (16:00)
--- NOTE | 2019-08-11 18:00 | NUR ---
COMFORT/IV DISCONTINUED COMPLETE BEDDING CHANGED, COMFORT CARE PROVIDED, PATIENT TOLERATED WELL AND DENIES PAIN OR DISCOMFORT. PATIENT ASSISTED STAFF IN TURNING, PATIENT ALERT AND ORIENTED X4, NO DISTRESS NOTED, RESPIRATIONS EVEN AND UNLABORED AND MECHANICALLY VENTILATED. IV TO LEFT WRIST DISCONTINUED WITH STERILE TECHNIQUE, CATHETER FULLY INTACT, PRESSURE DRESSING APPLIED. PATIENT TOLERATED PROCEDURE WELL.
--- NOTE | 2019-08-11 19:12 | NUR ---
END OF SHIFT NOTE PATIENT RESTING IN BED WITH EYES CLOSED, MECHANICALLY VENTILATED AND SEDATED, NO DISTRESS NOTED, RESPIRATIONS EVEN AND UNLABORED. PATIENT ALERT AND ORIENTED X4, FOLLOWING COMMANDS, VSS. FALL AND SAFETY PRECAUTIONS IN PLACE. ENDORSED CONTINUED CARE TO HOG RAISER RN.
--- NOTE | 2019-08-11 20:00 | NUR ---
RECEIVED PHONE CALL FROM [facility] VITAL SIGNS, VENT SETTINGS, AND IV DRIPS INFORMATIONS ARE GIVEN. HE SAID THAT HE WILL CALL AGAIN IN THE MORNING FOR UPDATES.
--- NOTE | 2019-08-11 21:00 | NUR ---
SEDATION VACATION HELD PATIENT IS AWAKE ALERT AND ORIENTED. Addendum: 08/12/19 at 0704 by Ceasar Blank RN Amended: Links added.
--- NOTE | 2019-08-11 22:00 | NUR ---
RESTLESS PATIENT IS VERY RESTLESS, SITTING ON THE BED, REMOVED MITTENS AND ASKING FOR WATER. TEACHING IS GIVEN. MOUTH CARE PROVIDED. PATIENT IS ON VERSED 15MG/HR AND FENTANYL 150MCG/HR. FENTANYL DRIP INCREASED TO 175 MCG/HR.
[2019-08-12] VITALS (63 sets, daily range): BP systolic 132–200; BP diastolic 51–95
[2019-08-12] MEDS: MIDAZOLAM DRIP 50 mg/50mL 50 ML IV SCH (00:11)
[2019-08-12] MEDS: fentaNYL Drip 2500mCg/250mlNS 250 ML IV SCH (00:11)
[2019-08-12] MEDS: InsuLIN REG 1unit/0.01ml Soln (100units/ml) SC SCH ×5 (00:35→23:39)
[2019-08-12] MEDS: ACCU-CHEK COMFORT CURVE STRIP VI SCH ×5 (00:35→23:39)
[2019-08-12] MEDS: FUROSEMIDE 20 MG/2 ML VIAL IV SCH ×2 (05:52→17:35)
[2019-08-12] MEDS: BUDESONIDE (INHALATION) 0.5 MG/2 ML NEB NEB SCH ×2 (07:04→19:03)
[2019-08-12] MEDS: IPRATROPIUM BROM 0.5 MG/2.5ML INH SOL NEB SCH ×4 (07:04→19:03)
[2019-08-12] MEDS: ALBUTEROL SULF 2.5 MG/0.5ML(0.5%) NEB SOLN NEB SCH ×3 (07:04→19:02)
[2019-08-12] MEDS: NOREPINEPHRINE 8 MG/250ML KIT 250 ML IV SCH (09:25)
--- NOTE | 2019-08-12 09:40 | NUR ---
Respiratory note: CPAP TRIAL INITIATED. PT TOLERATING CPAP WELL. RN MADE AWARE WILL CONTINUE TO MONITOR PT.
--- NOTE | 2019-08-12 09:40 | NUR ---
PATIENT STARTED ON CPAP. WILL CONTINUE TO MONITOR.
[2019-08-12] MEDS: cefTRIAXone 1GM/50ML D5W 50 ML IV SCH (10:00)
[2019-08-12] MEDS: FAMOTIDINE 20 MG TAB PO SCH (10:00)
--- NOTE | 2019-08-12 10:01 | NUR ---
0945 08/12/19 Contacted payroll services analystrhett Rao at [facility] and requested authorization for patient's continued stay. Per payroll services analystrhett Rao her mental health case manager Mark has to review clinical information for today before a decision can be made on further authorization. Faxed today's MD progress notes, vitals and medication list per her request. I let her know that per Dr. Hollis Lentz patient not stable for transfer to [facility] today. I requested that jessi Rao have mental health case manager Mark call me regarding requested authorization.
--- NOTE | 2019-08-12 11:17 | NUR ---
Nutrition Consult/assessment Notes please see attached link for complete assessment Est. Needs based on BW (72 kg): 0310-4765 kcal (23-25 kcal/kgBW), 72-79gms pro (1.0-1.1 gms/kgBW). Will continue to monitor pertinent labs and reassess nutrient need prn Addendum: 08/12/19 at [address] Amended: Links added.
--- NOTE | 2019-08-12 11:35 | NUR ---
DR JAY GIVEN WEANING PARAMETERS, AND ABG RESULTS. ORDERED TO EXTUBATE PT. RSBI-29, NIF-38.6, VC- 1356, LEAK-316.
--- NOTE | 2019-08-12 11:35 | NUR ---
PATIENT EXTUBATED. NO DISTRESS NOTED AT THIS TIME.
--- NOTE | 2019-08-12 13:22 | NUR ---
CARDIOLOGY CONSULT PHONED IN. DR. MCKENNA IS MEMBER SERVICES REPRESENTATIVE TODAY. ALL INFORMATION RELAYED.
[2019-08-12] MEDS ORDERED: CARVEDILOL 3.125 MG TAB PO ONE (16:45)
[2019-08-12] MEDS ORDERED: POTASSIUM CHL 20 Meq TABLET PO ONE (16:45)
--- NOTE | 2019-08-12 17:15 | NUR ---
ICU patient trans to floor [facility] transferred to 248 A via gurney on elastic attacher zigzag and portable 02. All patient medications and personal belongings transferred with patient to receiving floor. Patient care transferred to [facility].
--- NOTE | 2019-08-12 17:30 | NUR ---
Received reports from EDITOR, patient is alert and oriented not in respiratory distress. Patient was brought to room via wheelchair. Patient transferred to bed. Oriented to floor policy. Continue to monitor.
[2019-08-12] MEDS: HYDROcodone-ACET 5/325MG TAB PO PRN ×2 (17:34→23:39)
--- NOTE | 2019-08-12 19:35 | NUR ---
OPENING SHIFT NOTE REPORT RECEIVED FROM DAY SHIFT RN, 69 YEAR OLD FEMALE RESTING IN BED WITH EYES CLOSED, PATIENT ALERT WHEN CALLED BY NAME AND ABLE TO FOLLOW COMMANDS. DISCUSSED PLAN OF CARE WITH PATIENT, PATIENT NODDED HEAD YES. CALVO CATHETER DRAINING CLEAR YELLOW URINE WITH SEDIMENT TO GRAVITY. FALL AND SAFETY PRECAUTIONS IN PLACE. WILL CONTINUE TO MONITOR.
[2019-08-12] MEDS: CARVEDILOL 3.125 MG TAB PO SCH (22:32)
[2019-08-13] MEDS: IPRATROPIUM BROM 0.5 MG/2.5ML INH SOL NEB SCH ×4 (00:15→19:10)
[2019-08-13 05:00] VITALS: BP 153/89
[2019-08-13] MEDS: InsuLIN REG 1unit/0.01ml Soln (100units/ml) SC SCH ×4 (06:00→23:48)
[2019-08-13] MEDS: ACCU-CHEK COMFORT CURVE STRIP VI SCH ×4 (06:06→23:48)
[2019-08-13] MEDS: FUROSEMIDE 20 MG/2 ML VIAL IV SCH ×2 (06:07→18:20)
[2019-08-13] MEDS: ALBUTEROL SULF 2.5 MG/0.5ML(0.5%) NEB SOLN NEB SCH ×3 (06:37→19:10)
[2019-08-13] MEDS: BUDESONIDE (INHALATION) 0.5 MG/2 ML NEB NEB SCH ×2 (06:37→19:10)
[2019-08-13 07:33] VITALS: BP 153/80
[2019-08-13 09:00] VITALS: BP 158/87
--- NOTE | 2019-08-13 10:00 | NUR ---
Dr. Lentz at bedside, patient is advised. Orders received. Patient is for transfer to [place] on Telemetry. Dr. Lentz explained this to the patient and agreed with this.
[2019-08-13] MEDS: cefTRIAXone 1GM/50ML D5W 50 ML IV SCH (10:05)
--- NOTE | 2019-08-13 10:05 | NUR ---
nitroglycerin supervisor shoe caser paged re: [facility] transfer. Waiting for call back.
[2019-08-13] MEDS: CARVEDILOL 3.125 MG TAB PO SCH ×2 (10:06→21:49)
[2019-08-13] MEDS: FAMOTIDINE 20 MG TAB PO SCH (10:06)
--- NOTE | 2019-08-13 10:30 | NUR ---
Spoke with Yris senior loss control specialist trimming caser, patient is stable to transfer to [place] per Dr. Lentz and to be admitted to Telemetry. Instructions received from Yris that patient has the option of not to be transferred being a senior as per [facility]. Addendum: 08/13/19 at 1529 by Vince Prajapati RN If patient agreed to be transferred, fax informations/clinicals to [facility] fax#[phone]. Addendum: 08/13/19 at 1532 by Vince Prajapati RN If patient agreed to transfer to [place], fax clinicals to [facility] fax #[phone].
--- NOTE | 2019-08-13 10:45 | NUR ---
Unable to fax informations/clinicals to [facility], communication lines including phones and fax machine are down at this time.
--- NOTE | 2019-08-13 10:55 | NUR ---
Patient change her mind and decided to stay not be transferred to [facility] due to some reasons. Spoke with Yris again and instructions received that patient has the option not to be transferred.
--- NOTE | 2019-08-13 11:00 | NUR ---
Patient made aware that she has the option being a senior of not being transferred per [facility] kerwin Arndt information systems consultant case management rn. Per patient she will talk to her about this.
--- NOTE | 2019-08-13 11:09 | NUR ---
packaging mechanic protective services case worker paged again. Waiting for call back.
--- NOTE | 2019-08-13 11:10 | NUR ---
Escobar catheter removed as ordered.
[2019-08-13] MEDS: HYDROcodone-ACET 5/325MG TAB PO PRN ×2 (12:10→18:21)
[2019-08-13 13:00] VITALS: BP 155/88
--- NOTE | 2019-08-13 14:05 | NUR ---
Patient's Avelino at the bedside, the RN was informed that after discussions patient opted not to be transferred to [facility], they wanted to know if [facility] will pay for the hospital bills here that they decided to stay. Will call again Yris news production assistant window caser about this.
--- NOTE | 2019-08-13 14:15 | NUR ---
Yris paged and returned call. Made her aware that patient decided opted not to be transferred and wanted to know if hospital bills will be shouldered by [facility]. Per Yris, she will inform [facility] about the patient's decision, it is still the insurance to pay the hospital bills.
--- NOTE | 2019-08-13 14:30 | NUR ---
Dr. Lentz paged and returned call, made him aware that patient decided not to be transferred to [facility], inform him also that as per [facility] thru Yris internet application developer assistant case manager [facility] patient has the option as a senior not to transfer and being medically stable. Dr. Lentz wanted to know who Yris talked to about this in [facility] and wanted it documented now or as soon as possible otherwise he will still continue to put orders for patient to transfer to [place]. Instructions received from Dr. Lentz to call Yris. Addendum: 08/13/19 at 1526 by Vince Prajapati RN Dr. Lentz made rose that Kristina from [facility] is the person Yris's been communicating with. Dr. Lentz still requested for written documentation from Yris.
--- NOTE | 2019-08-13 15:09 | NUR ---
Paged Yris filteration operator case consultant re: instructions from Dr. Lentz. Waiting for call back.
--- NOTE | 2019-08-13 15:14 | NUR ---
Yris called back, informed her of instructions from Dr. Lentz about her documentation. Per Yris, she will try her best to put her documentation MICHAEL.
[2019-08-13 17:00] VITALS: BP 165/79
--- NOTE | 2019-08-13 17:24 | NUR ---
Faxed clinicals to [facility] twice but unable to get through. [facility] charge aware. Addendum: 08/13/19 at 1727 by Vince Prajapati RN wrong entry.
--- NOTE | 2019-08-13 18:02 | NUR ---
Spoke with Marianela of [facility] case management #[phone], made her aware that RN unable to fax clinicals to [facility], fax machines and some other communication lines are still not working.
--- NOTE | 2019-08-13 19:10 | NUR ---
Gave reports to shift commander RN. Copies of the clinicals that needs to be faxed to [facility] given as soon as the fax machine is fixed.
--- NOTE | 2019-08-13 19:50 | NUR ---
OPENING SHIFT NOTE REPORT RECEIVED FROM DAY SHIFT RN, 69 YEAR OLD FEMALE RESTING IN BED WITH EYES CLOSED, PATIENT ALERT WHEN CALLED BY NAME AND ABLE TO FOLLOW COMMANDS. DISCUSSED PLAN OF CARE WITH PATIENT. AT BEDSIDE. FALL AND SAFETY PRECAUTIONS IN PLACE. WILL CONTINUE TO MONITOR. Addendum: 08/13/19 at 1999 by Lucille oBlivar RN PER DAY SHIFT, RN. PT REFUSING TO BE TRANSFERRED TO [facility]. TRYING TO GET INFORMATION TO [facility] CASE MANAGEMENT. COMMUNICATION FAXING DOWN AT THIS TIME.
--- NOTE | 2019-08-13 21:30 | NUR ---
tried to fax the information to [facility]. fax did not go through. called and talked to Jon at [facility] ed case manager. she stated that the patient would not be going tonight anyway so they can try again i the morning. notified charge, kady Vences.
[2019-08-13 22:00] VITALS: BP 154/85
[2019-08-14] MEDS: IPRATROPIUM BROM 0.5 MG/2.5ML INH SOL NEB SCH ×3 (00:28→12:40)
[2019-08-14] MEDS: HYDROcodone-ACET 5/325MG TAB PO PRN ×3 (00:37→11:49)
[2019-08-14 05:01] VITALS: BP 165/84
--- NOTE | 2019-08-14 05:02 | NUR ---
WHILE OBTAINING THE PATIENTS VITALS AT 0500, THE PATIENT WAS COMPLAINING ABOUT BEING IN A LOT OF PAIN AND EXPRESSED THAT SHE WILL BE MAKING SURE HER BRINGS HER MEDS FROM HOME SO THAT SHE CAN TAKE THOSE WELL. I INFORMED THE PATIENT THAT WE DO NOT ALLOW THEM TO TAKE HOME MEDS ON THEIR OWN HERE BECAUSE WE DO NOT WANT TO OVER MEDICATE OUR PATIENTS. THE PATIENT INFORMED ME THAT SHE KNOWS WHAT SHE IS DOING. I LET HER KNOW AGAIN THAT WE DO NOT ALLOW THAT. I ALSO INFORMED THE PATIENTS NURSE JOSE Hale
[2019-08-14] MEDS: ACCU-CHEK COMFORT CURVE STRIP VI SCH ×2 (05:39→12:00)
[2019-08-14] MEDS: FUROSEMIDE 20 MG/2 ML VIAL IV SCH (05:40)
[2019-08-14] MEDS: InsuLIN REG 1unit/0.01ml Soln (100units/ml) SC SCH ×2 (05:40→12:00)
[2019-08-14] MEDS: ALBUTEROL SULF 2.5 MG/0.5ML(0.5%) NEB SOLN NEB SCH ×2 (06:48→12:40)
[2019-08-14] MEDS: BUDESONIDE (INHALATION) 0.5 MG/2 ML NEB NEB SCH (06:48)
--- NOTE | 2019-08-14 08:00 | NUR ---
Opening Shift Note Assumed care of patient, awake and alert. No S/S of distress/SOB, complained of headache 07/21, was medicated with [place] at around 0541. Instructed on POC and to call for assist PRN, will continue to monitor for changes Q1hr and PRN.
[2019-08-14 09:00] VITALS: BP 153/92
--- NOTE | 2019-08-14 09:12 | NUR ---
Faxed clinicals to [facility] fax # [phone]. Waiting for reply.
[2019-08-14] MEDS: cefTRIAXone 1GM/50ML D5W 50 ML IV SCH (09:48)
[2019-08-14] MEDS: FAMOTIDINE 20 MG TAB PO SCH (09:48)
[2019-08-14] MEDS: CARVEDILOL 3.125 MG TAB PO SCH (09:48)
[2019-08-14] MEDS ORDERED: ONDANSETRON HCL 4 MG/2 ML VIAL IV ONE (10:00)
[2019-08-14] MEDS ORDERED: MORPHINE SULF INJ 2 MG/ML SYRINGE 1ML IV ONE (10:00)
[2019-08-14 11:24] VITALS: BP 158/84
--- NOTE | 2019-08-14 11:27 | NUR ---
Nutrition Follow-up Notes: Wt.: 65.9 kg Pt`s successfully extubated sleeping with no family by beside. per records pt with CHF exacerbation. pt is currently on CCHO 45 gm 2 gm na mech soft diet with adequate PO of > 75% x 2 per RN doc Est. Needs based on BW (72 kg): 7803-3138 kcal (23-25 kcal/kgBW), 72-79gms pro (1.0-1.1 gms/kgBW). Will continue to monitor pertinent labs and reassess nutrient need prn Labs: No new labs today 08/11: CO2 33 H, CA 7.7 L Skin: No Levon scale skin intact per hot packer. GI: Pt had 1 BM yesterday per RN doc PES: Resolved: Impaired swallowing r.t current medical condition aeb pt`s intubated sedated with order of NPO Altered nutrition related lab values r/t current/chronic medical condition aeb hypercapnia, hypocalcemia, elev A1C mild hypoalb Will continue to monitor PO intake, skin status, pertinent labs and weight trend. F/u in 3 to 5 days. Rec.: 1.) Refer to CDE on DC. 2) continue current plan of care
[2019-08-14 13:00] VITALS: BP 155/77
--- NOTE | 2019-08-14 14:35 | NUR ---
Discharge instructions given as ordered. Encourage to follow up with PMD at [place] in 1 week as instructed. All questions and concerns addressed. Patient verbalized understanding. Medication reconciliation form completed and copy given to patient. Home medications held in Pharmacy returned to patient. IV removed with catheter intact, pressure dressing applied. Telemetry unit returned to ICU. Patient taken to vehicle via wheelchair with all personal belongings, accompanied by staff and family member. No distress noted at time of departure.
== END 2019-08-14 14:35 | disposition home or self-care (01) | DRG 871 ==
LOC: EDUNIT# 09:11 → ER 09:11 → EDBD 09:11 → TELE 09:12 → ICU WEST 20:19 → TELE-EAST 08-12 17:13
PROVIDERS: ADMIT Nurse Practitioner Acute Care; ATTEND Family Medicine
PROC: 5A1945Z Respiratory Ventilation, 24-96 Consecutive Hours (ICD-10-PCS; principal; 2019-08-10)
PROC: 0BH17EZ Insertion of Endotracheal Airway into Trachea, Via Natural or Artificial Opening (ICD-10-PCS; 2019-08-10)
PROC: 02HV33Z Insertion of Infusion Device into Superior Vena Cava, Percutaneous Approach (ICD-10-PCS; 2019-08-11)
DX: A41.9 Sepsis, unspecified organism (principal); I50.23 Acute on chronic systolic (congestive) heart failure; J18.9 Pneumonia, unspecified organism; J96.21 Acute and chronic respiratory failure with hypoxia; J96.22 Acute and chronic respiratory failure with hypercapnia; J44.1 Chronic obstructive pulmonary disease with (acute) exacerbation; E44.1 Mild protein-calorie malnutrition; I13.0 Hypertensive heart and chronic kidney disease with heart failure and stage 1 through stage 4 chronic kidney disease, or unspecified chronic kidney disease; I42.9 Cardiomyopathy, unspecified; J44.0 Chronic obstructive pulmonary disease with (acute) lower respiratory infection; E11.22 Type 2 diabetes mellitus with diabetic chronic kidney disease; E66.9 Obesity, unspecified; E78.5 Hyperlipidemia, unspecified; F41.9 Anxiety disorder, unspecified; N18.3 Chronic kidney disease, stage 3 (moderate); T50.905A Adverse effect of unspecified drugs, medicaments and biological substances, initial encounter; E78.00 Pure hypercholesterolemia, unspecified; E11.65 Type 2 diabetes mellitus with hyperglycemia; F17.210 Nicotine dependence, cigarettes, uncomplicated; Z79.84 Long term (current) use of oral hypoglycemic drugs; Z91.19 Patient's noncompliance with other medical treatment and regimen; Z68.24 Body mass index [BMI] 24.0-24.9, adult; Z88.1 Allergy status to other antibiotic agents; Z88.0 Allergy status to penicillin; Z88.2 Allergy status to sulfonamides; Z91.041 Radiographic dye allergy status; Z79.899 Other long term (current) drug therapy; Z85.038 Personal history of other malignant neoplasm of large intestine; Z90.49 Acquired absence of other specified parts of digestive tract; Z91.14 Patient's other noncompliance with medication regimen; Z82.49 Family history of ischemic heart disease and other diseases of the circulatory system; Z82.5 Family history of asthma and other chronic lower respiratory diseases; Z90.710 Acquired absence of both cervix and uterus; Y92.89 Other specified places as the place of occurrence of the external cause
CPT/HCPCS: 36415; 36600; 71045; 80048; 80053; 81001; 82805; 82962; 83036; 83605; 83735; 83880; 84484; 85025; 85610; 85730; 87040; 87070; 87081; 87086; 87205; 87804; 93005; 93306; 94003; 94640; 96361; 96374; G0378; J0330; J0696; J1642; J2250; J2405; J3480

== ENCOUNTER 2019-08-19 16:30 | Emergency (ER) | payer OTHER ==
[~2019-08-19] VITALS: Ht 157.5 cm; Wt 66.7 kg
[~2019-08-19 16:30] MED LIST changes: +CARB200T PO; +POM
[2019-08-19] MEDS ORDERED: ONDANSETRON HCL 4 MG/2 ML VIAL IV ONE ×2 (17:00→19:15)
[2019-08-19] MEDS ORDERED: MORPHINE SULFATE 4 MG/ML SYR/VIAL IV ONE (17:00)
[2019-08-19 17:40] LABS: Basophils # (auto) 0.1 uL; Basophils % (auto) 0.5 % (0.0-2.0); Eosinophils # (auto) 0 uL; Eosinophils % (auto) 0.3 % (0.0-7.0); Hematocrit 39.7 % (36.0-46.0); Hemoglobin 12.8 g/dL (12.2-16.2); Lymphocytes # (auto) 1.8 uL; Lymphocytes % (auto) 10.8 % (10.0-50.0); Mean Corpuscular Hemoglobin 26.2 pg (28.0-32.0); Mean Corpuscular Hgb Conc. 32.2 g/dL (32.0-36.0); Mean Corpuscular Volume 81.6 fL (80.0-100.0); Monocytes # (auto) 1.4 uL; Monocytes % (auto) 8.3 % (0.0-12.0); Neutrophils # (auto) 13.3 uL; Neutrophils % (auto) 80.1 % (37.0-80.0); Platelet Count (auto) 228 10^3/uL (140-450); Red Blood Cells 4.87 10^6/uL (4.0-5.20); White Blood Cell 16.6 10^3/uL (4.4-10.8)
[2019-08-19 17:43] LABS: Red Cell Distribution Width 20.6 % (11.8-14.3)
[2019-08-19 17:59] LABS: BUN/Creatinine Ratio 11.8; Potassium 3.6 mmol/L (3.5-5.1)
[2019-08-19 18:02] LABS: Bilirubin, Total 0.2 mg/dL (0.2-1.0); Total Protein 7.4 g/dL (6.4-8.2)
[2019-08-19 18:10] LABS: Urine WBC None Seen /hpf (0 - 5)
[2019-08-19 18:29] LABS: Urine Bacteria NONE SEEN /hpf (None Seen); Urine Blood Negative /uL (Negative); Urine Mucus FEW (None Seen); Urine Specific Gravity 1.004 (1.001-1.035)
[2019-08-19] MEDS ORDERED: SODIUM CHLORIDE 0.9% 1,000 ML IV ONE (19:15)
[2019-08-19] MEDS ORDERED: HYDROmorphone HCL 2 MG/ML VL IV ONE (19:15)
[2019-08-19 20:52] VITALS: BP 146/60
== END 2019-08-19 21:14 | disposition short-term general hospital (02) ==
LOC: EDBD 16:30 → ER 16:36
DX: S72.141A Displaced intertrochanteric fracture of right femur, initial encounter for closed fracture (principal); S83.91XA Sprain of unspecified site of right knee, initial encounter; I12.9 Hypertensive chronic kidney disease with stage 1 through stage 4 chronic kidney disease, or unspecified chronic kidney disease; N18.9 Chronic kidney disease, unspecified; J44.9 Chronic obstructive pulmonary disease, unspecified; Z90.49 Acquired absence of other specified parts of digestive tract; Z90.710 Acquired absence of both cervix and uterus; F17.210 Nicotine dependence, cigarettes, uncomplicated; Z88.0 Allergy status to penicillin; Z88.1 Allergy status to other antibiotic agents; Z88.2 Allergy status to sulfonamides; Z88.8 Allergy status to other drugs, medicaments and biological substances; Z79.899 Other long term (current) drug therapy; W01.0XXA Fall on same level from slipping, tripping and stumbling without subsequent striking against object, initial encounter; Y93.89 Activity, other specified; Y92.89 Other specified places as the place of occurrence of the external cause; Y99.8 Other external cause status
CPT/HCPCS: 36415; 70450; 71045; 72192; 73700; 80053; 81001; 85025; 96374; 96375; 96376; 99285; J1170; J2270; J2405; J7030

== ENCOUNTER → 2019-10-21 | Outpatient (CLI) | payer OTHER ==
[2019-10-21 15:52] LABS: Basophils # (auto) 0.1 uL; Basophils % (auto) 0.7 % (0.0-2.0); Eosinophils # (auto) 0 uL; Eosinophils % (auto) 0.3 % (0.0-7.0); Hematocrit 42.1 % (36.0-46.0); Hemoglobin 14.3 g/dL (12.2-16.2); Lymphocytes # (auto) 1.6 uL; Lymphocytes % (auto) 15.5 % (10.0-50.0); Mean Corpuscular Hemoglobin 28.1 pg (28.0-32.0); Mean Corpuscular Hgb Conc. 33.9 g/dL (32.0-36.0); Mean Corpuscular Volume 82.8 fL (80.0-100.0); Monocytes # (auto) 0.7 uL; Monocytes % (auto) 7.1 % (0.0-12.0); Neutrophils # (auto) 7.9 uL; Neutrophils % (auto) 76.4 % (37.0-80.0); Platelet Count (auto) 358 10^3/uL (140-450); Red Blood Cells 5.08 10^6/uL (4.0-5.20); Red Cell Distribution Width 19.7 % (11.8-14.3); White Blood Cell 10.3 10^3/uL (4.4-10.8)
[2019-10-21 15:56] LABS: Calcium 8.4 mg/dL (8.5-10.1); Potassium 3.2 mmol/L (3.5-5.1)
[2019-10-21 16:02] LABS: BUN/Creatinine Ratio 7.8
== END | disposition home or self-care (01) ==
LOC: LAB 14:43
PROVIDERS: ATTEND Internal Medicine
DX: E11.22 Type 2 diabetes mellitus with diabetic chronic kidney disease (principal); N18.3 Chronic kidney disease, stage 3 (moderate); J44.9 Chronic obstructive pulmonary disease, unspecified
CPT/HCPCS: 36415; 80048; 80061; 83036; 84443; 85025

== ENCOUNTER 2019-10-31 04:00 | Inpatient (IN) | payer OTHER ==
[~2019-10-31] VITALS: Ht 160 cm; Wt 73.3 kg
[2019-10-31] MEDS ORDERED: ALBUTEROL SULF 2.5 MG/0.5ML(0.5%) NEB SOLN NEB ONE (04:45)
[2019-10-31] MEDS ORDERED: FUROSEMIDE 20 MG/2 ML VIAL IV ONE (04:45)
[2019-10-31] MEDS ORDERED: methylPREDNISolone SOD SUCC 125 MG/2 ML VL IV ONE (04:45)
[2019-10-31] MEDS ORDERED: IPRATROPIUM BROM 0.5 MG/2.5ML INH SOL NEB ONE (04:45)
[2019-10-31] MEDS ORDERED: TEMAZEPAM 15 MG CAP PO ONE (04:45)
[2019-10-31 05:20] LABS: Basophils # (auto) 0.1 uL; Basophils % (auto) 0.5 % (0.0-2.0)
[2019-10-31 05:23] LABS: Eosinophils # (auto) 0.1 uL; Eosinophils % (auto) 0.7 % (0.0-7.0); Hematocrit 37.7 % (36.0-46.0); Hemoglobin 12.4 g/dL (12.2-16.2); Lymphocytes # (auto) 1.6 uL; Lymphocytes % (auto) 13.9 % (10.0-50.0); Mean Corpuscular Hemoglobin 26.7 pg (28.0-32.0); Mean Corpuscular Hgb Conc. 32.8 g/dL (32.0-36.0); Mean Corpuscular Volume 81.2 fL (80.0-100.0); Neutrophils # (auto) 8.5 uL; Neutrophils % (auto) 75.9 % (37.0-80.0); Nucleated Red Blood Cells % 0.1 %; Platelet Count (auto) 363 10^3/uL (140-450); Red Blood Cells 4.64 10^6/uL (4.0-5.20); White Blood Cell 11.1 10^3/uL (4.4-10.8)
[2019-10-31 05:41] LABS: Albumin 2.9 g/dL (3.4-5.0); Anion Gap 6 (5-15); Blood Urea Nitrogen 9 mg/dL (7-18); Calcium 8.3 mg/dL (8.5-10.1); Carbon Dioxide 34 mmol/L (21-32); Chloride 93 mmol/L (98-107); Glucose 159 mg/dL (74-106); Sodium 133 mmol/L (136-145)
[2019-10-31 05:47] LABS: Alanine Aminotransferase 11 U/L (13-56); Alkaline Phosphatase 178 U/L (45-117); Aspartate Aminotransferase 13 U/L (15-37); BUN/Creatinine Ratio 10.3; Bilirubin, Total 0.3 mg/dL (0.2-1.0); GFR African American 83 mL/min; GFR Non-African American 69 mL/min; Total Protein 7.5 g/dL (6.4-8.2)
[2019-10-31 05:55] LABS: Potassium 2.9 mmol/L (3.5-5.1)
[2019-10-31] MEDS ORDERED: POTASSIUM EFFERVESENT TAB 25 MEQ PO ONE (06:00)
[2019-10-31 09:01] LABS: Urine Bacteria NONE SEEN /hpf (None Seen); Urine Blood Negative /uL (Negative); Urine Specific Gravity 1.004 (1.001-1.035); Urine WBC <1 /hpf (0 - 5)
[2019-10-31] MEDS: LEVOFLOXACIN 750MG 150 ML IV SCH (09:53)
[2019-10-31] MEDS ORDERED: methylPREDNISolone SOD SUCC 125 MG/2 ML VL IV SCH (10:00)
[2019-10-31] MEDS ORDERED: POTASSIUM CHL 20 Meq TABLET PO ONE (11:00)
[2019-10-31] MEDS ORDERED: POTASSIUM CHLORIDE 40 MEQ, LIDOCAINE 1% (LOCAL ANESTH.) 4 ML in SODIUM CHL 0.9% 100 ML IV ONE (11:00)
[2019-10-31] MEDS ORDERED: FUROSEMIDE 40 MG/4 ML VIAL IV ONE (11:00)
[2019-10-31] MEDS: oxyCODONE ER 10 MG TAB PO SCH ×3 (12:01→23:54)
[2019-10-31 13:00] VITALS: BP 178/92
[2019-10-31] MEDS ORDERED: DEXTROSE (50%) 50ML SYRG IV ONE (13:00)
[2019-10-31] MEDS: ACETYLCYSTEINE 20%(200MG/ML) SOL 4ML NEB SCH ×2 (14:00→22:01)
[2019-10-31] MEDS: HYDROcodone-ACET 5/325MG TAB PO PRN ×2 (14:11→21:25)
[2019-10-31] MEDS: carBAMazepine 200 MG TAB PO SCH ×2 (14:11→21:25)
[2019-10-31] MEDS: BACLOFEN 10 MG TAB PO SCH ×2 (14:11→21:25)
[2019-10-31 17:00] VITALS: BP 144/87
[2019-10-31] MEDS ORDERED: ACCU-CHEK COMFORT CURVE STRIP VI ONE (17:00)
[2019-10-31] MEDS ORDERED: InsuLIN REG 1unit/0.01ml Soln (100units/ml) SC ONE (17:00)
[2019-10-31] MEDS: FUROSEMIDE 40 MG/4 ML VIAL IV SCH (17:29)
[2019-10-31] MEDS: ALBUTEROL SULF 2.5 MG/0.5ML(0.5%) NEB SOLN NEB PRN ×2 (19:26→22:01)
[2019-10-31 21:07] VITALS: BP 144/87
[2019-10-31] MEDS: traZODone HCL 50 MG TAB PO SCH (21:26)
[2019-10-31 22:00] VITALS: BP 165/92
[2019-10-31 22:01] VITALS: BP 144/86
[2019-10-31] MEDS: ATORVASTATIN 20 MG TAB PO SCH (23:54)
[2019-10-31] MEDS: methylPREDNISolone SOD SUCC 40 MG/ML VL IV SCH (23:55)
[2019-11-01] MEDS: IPRATROPIUM BROM 0.5 MG/2.5ML INH SOL NEB PRN ×5 (01:51→22:38)
[2019-11-01] MEDS: ALBUTEROL SULF 2.5 MG/0.5ML(0.5%) NEB SOLN NEB PRN ×5 (01:51→22:38)
[2019-11-01] MEDS: HYDROcodone-ACET 5/325MG TAB PO PRN ×3 (03:43→21:27)
[2019-11-01] MEDS ORDERED: diphenhdrAMINE HCL 25 MG CAP PO ONE (05:15)
[2019-11-01 05:45] VITALS: BP 156/85
[2019-11-01] MEDS: methylPREDNISolone SOD SUCC 40 MG/ML VL IV SCH ×4 (05:50→23:19)
[2019-11-01] MEDS: FUROSEMIDE 40 MG/4 ML VIAL IV SCH ×2 (05:50→17:55)
[2019-11-01] MEDS: carBAMazepine 200 MG TAB PO SCH ×3 (05:51→21:26)
[2019-11-01] MEDS: BACLOFEN 10 MG TAB PO SCH ×3 (05:51→21:26)
[2019-11-01] MEDS: oxyCODONE ER 10 MG TAB PO SCH ×3 (05:51→17:55)
[2019-11-01 06:09] LABS: Basophils # (auto) 0 uL; Basophils % (auto) 0.3 % (0.0-2.0); Eosinophils # (auto) 0 uL; Hematocrit 34.9 % (36.0-46.0); Hemoglobin 11.5 g/dL (12.2-16.2); Lymphocytes # (auto) 0.8 uL; Lymphocytes % (auto) 8.3 % (10.0-50.0); Mean Corpuscular Hemoglobin 27.2 pg (28.0-32.0); Mean Corpuscular Hgb Conc. 33.1 g/dL (32.0-36.0); Mean Corpuscular Volume 82.3 fL (80.0-100.0); Monocytes # (auto) 0.6 uL; Monocytes % (auto) 6.3 % (0.0-12.0); Neutrophils # (auto) 7.7 uL; Neutrophils % (auto) 85.1 % (37.0-80.0); Nucleated Red Blood Cells % 0.1 %; Platelet Count (auto) 326 10^3/uL (140-450); Red Blood Cells 4.24 10^6/uL (4.0-5.20)
[2019-11-01] MEDS: ACETYLCYSTEINE 20%(200MG/ML) SOL 4ML NEB SCH ×3 (06:15→19:23)
[2019-11-01 06:25] LABS: Potassium 3.4 mmol/L (3.5-5.1)
[2019-11-01 06:37] LABS: Albumin 2.9 g/dL (3.4-5.0); BUN/Creatinine Ratio 8.8; Bilirubin, Total 0.4 mg/dL (0.2-1.0); Calcium 8.7 mg/dL (8.5-10.1); Total Protein 7.4 g/dL (6.4-8.2)
[2019-11-01 09:00] VITALS: BP 168/98
[2019-11-01] MEDS ORDERED: POTASSIUM CHL 20 Meq TABLET PO ONE (09:15)
[2019-11-01] MEDS: LEVOFLOXACIN 750MG 150 ML IV SCH (09:29)
[2019-11-01] MEDS ORDERED: diphenhdrAMINE HCL 25 MG CAP PO PRN (11:00)
[2019-11-01 13:00] VITALS: BP 170/89
[2019-11-01] MEDS: GABAPENTIN 100 MG CAP PO SCH ×2 (13:37→21:26)
[2019-11-01 16:44] VITALS: BP 154/89
[2019-11-01] MEDS ORDERED: MAGNESIUM OXIDE 400 MG TAB PO ONE (17:30)
[2019-11-01] MEDS: ATORVASTATIN 20 MG TAB PO SCH (21:26)
[2019-11-01] MEDS: traZODone HCL 50 MG TAB PO SCH (21:26)
[2019-11-01 22:00] VITALS: BP 162/99
[2019-11-02] MEDS: oxyCODONE ER 10 MG TAB PO SCH ×5 (00:04→17:55)
[2019-11-02 05:00] VITALS: BP 152/71
[2019-11-02] MEDS: FUROSEMIDE 40 MG/4 ML VIAL IV SCH ×2 (05:37→17:55)
[2019-11-02] MEDS: BACLOFEN 10 MG TAB PO SCH ×3 (05:37→21:09)
[2019-11-02] MEDS: methylPREDNISolone SOD SUCC 40 MG/ML VL IV SCH ×4 (05:37→23:15)
[2019-11-02] MEDS: carBAMazepine 200 MG TAB PO SCH ×3 (05:38→21:10)
[2019-11-02] MEDS: GABAPENTIN 100 MG CAP PO SCH ×3 (05:38→21:09)
[2019-11-02] MEDS: ACETYLCYSTEINE 20%(200MG/ML) SOL 4ML NEB SCH ×3 (06:00→22:01)
[2019-11-02] MEDS: IPRATROPIUM BROM 0.5 MG/2.5ML INH SOL NEB PRN ×4 (06:03→22:00)
[2019-11-02] MEDS: ALBUTEROL SULF 2.5 MG/0.5ML(0.5%) NEB SOLN NEB PRN ×4 (06:03→22:00)
[2019-11-02 06:32] LABS: Calcium 8.6 mg/dL (8.5-10.1); Magnesium 2.3 mg/dL (1.6-2.6); Potassium 3.3 mmol/L (3.5-5.1)
[2019-11-02 06:35] LABS: BUN/Creatinine Ratio 12.8
[2019-11-02 08:00] VITALS: BP 152/78
[2019-11-02] MEDS: LEVOFLOXACIN 750MG 150 ML IV SCH (09:44)
[2019-11-02] MEDS ORDERED: POTASSIUM CHLORIDE 40 MEQ, LIDOCAINE 1% (LOCAL ANESTH.) 4 ML in SODIUM CHL 0.9% 100 ML IV ONE (10:00)
[2019-11-02] MEDS ORDERED: POTASSIUM CHL 20 Meq TABLET PO ONE (10:00)
[2019-11-02 12:00] VITALS: BP 144/90
[2019-11-02 17:00] VITALS: BP 151/92
[2019-11-02] MEDS: ATORVASTATIN 20 MG TAB PO SCH (21:09)
[2019-11-02] MEDS: traZODone HCL 50 MG TAB PO SCH (21:09)
[2019-11-02] MEDS: HYDROcodone-ACET 5/325MG TAB PO PRN (21:53)
[2019-11-03] MEDS: oxyCODONE ER 10 MG TAB PO SCH ×3 (00:16→11:36)
[2019-11-03 05:00] VITALS: BP 145/60
[2019-11-03] MEDS: methylPREDNISolone SOD SUCC 40 MG/ML VL IV SCH ×2 (05:50→11:35)
[2019-11-03] MEDS: BACLOFEN 10 MG TAB PO SCH ×2 (05:50→13:28)
[2019-11-03] MEDS: FUROSEMIDE 40 MG/4 ML VIAL IV SCH (05:50)
[2019-11-03] MEDS: carBAMazepine 200 MG TAB PO SCH ×2 (05:50→13:28)
[2019-11-03] MEDS: GABAPENTIN 100 MG CAP PO SCH ×2 (05:50→13:28)
[2019-11-03] MEDS: IPRATROPIUM BROM 0.5 MG/2.5ML INH SOL NEB PRN ×2 (07:12→14:22)
[2019-11-03] MEDS: ACETYLCYSTEINE 20%(200MG/ML) SOL 4ML NEB SCH ×2 (07:12→14:22)
[2019-11-03] MEDS: ALBUTEROL SULF 2.5 MG/0.5ML(0.5%) NEB SOLN NEB PRN ×2 (07:13→14:22)
[2019-11-03] MEDS: HYDROcodone-ACET 5/325MG TAB PO PRN ×2 (08:58→15:38)
[2019-11-03 09:00] VITALS: BP 132/92
[2019-11-03] MEDS ORDERED: LEVOFLOXACIN 500 MG TAB PO SCH (10:00)
[2019-11-03 13:00] VITALS: BP 161/87
[2019-11-03 15:30] VITALS: BP 143/92
[2019-11-03 15:47] VITALS: BP 145/60
[2019-11-03 16:48] VITALS: BP 174/96
== END 2019-11-03 16:40 | disposition home or self-care (01) | DRG 291 ==
LOC: EDUNIT# 04:00 → ER 04:03 → OVERFLOW 04:04 → WEST WING 09:07 → TELE-WESTW 11-01 17:03
PROVIDERS: ADMIT Hospitalist; ATTEND Internal Medicine
DX: I11.0 Hypertensive heart disease with heart failure (principal); J96.20 Acute and chronic respiratory failure, unspecified whether with hypoxia or hypercapnia; J44.1 Chronic obstructive pulmonary disease with (acute) exacerbation; M48.55XA Collapsed vertebra, not elsewhere classified, thoracolumbar region, initial encounter for fracture; J44.0 Chronic obstructive pulmonary disease with (acute) lower respiratory infection; I50.43 Acute on chronic combined systolic (congestive) and diastolic (congestive) heart failure; F17.210 Nicotine dependence, cigarettes, uncomplicated; E87.6 Hypokalemia; J20.9 Acute bronchitis, unspecified; I27.20 Pulmonary hypertension, unspecified; E11.65 Type 2 diabetes mellitus with hyperglycemia; E78.5 Hyperlipidemia, unspecified; Z85.038 Personal history of other malignant neoplasm of large intestine; Z79.82 Long term (current) use of aspirin; Z79.899 Other long term (current) drug therapy; Z82.49 Family history of ischemic heart disease and other diseases of the circulatory system; Z82.5 Family history of asthma and other chronic lower respiratory diseases; Z90.710 Acquired absence of both cervix and uterus; Z99.81 Dependence on supplemental oxygen; Z90.49 Acquired absence of other specified parts of digestive tract; Z88.1 Allergy status to other antibiotic agents; Z88.0 Allergy status to penicillin; Z88.2 Allergy status to sulfonamides; Z91.041 Radiographic dye allergy status; Z71.6 Tobacco abuse counseling
CPT/HCPCS: 36415; 36600; 71045; 71250; 78582; 80048; 80053; 81001; 82378; 82805; 83735; 83880; 84484; 85025; 85379; 87040; 93005; 94640; 96365; 96375; G0378; J1642; J1956; J2001

== ENCOUNTER → 2019-11-21 | Outpatient (CLI) | payer OTHER ==
[2019-11-21 15:03] LABS: Free T4 (Free Thyroxine) 0.93 ng/dL (0.89-1.76)
[2019-11-21 15:04] LABS: Free T3 2.8 pg/mL (2.3-4.2)
== END | disposition home or self-care (01) ==
LOC: LAB 14:13
PROVIDERS: ATTEND Internal Medicine
DX: E11.21 Type 2 diabetes mellitus with diabetic nephropathy (principal); I10 Essential (primary) hypertension
CPT/HCPCS: 84439; 84481

== ENCOUNTER → 2019-12-30 | Outpatient (CLI) | payer OTHER ==
[2019-12-30 10:32] LABS: Basophils # (auto) 0.1 10 ^3/uL (0-0.2); Eosinophils # (auto) 0.1 10 ^3/uL (0-0.8); Hemoglobin 13.6 g/dL (12.2-16.2); Lymphocytes # (auto) 2.3 10 ^3/uL (0.4-5.4); Neutrophils # (auto) 5.9 10 ^3/uL (1.6-8.6)
[2019-12-30 10:34] LABS: Eosinophils % (auto) 0.7 % (0.0-7.0); Hematocrit 42.2 % (36.0-46.0); Lymphocytes % (auto) 24.9 % (10.0-50.0); Mean Corpuscular Hemoglobin 26.3 pg (28.0-32.0); Mean Corpuscular Hgb Conc. 32.2 g/dL (32.0-36.0); Mean Corpuscular Volume 81.5 fL (80.0-100.0); Monocytes # (auto) 0.9 10 ^3/uL (0-1.3); Monocytes % (auto) 9.5 % (0.0-12.0); Neutrophils % (auto) 63.9 % (37.0-80.0); Nucleated Red Blood Cells % 0.1 %; Platelet Count (auto) 261 10^3/uL (140-450); Red Blood Cells 5.18 10^6/uL (4.0-5.20); White Blood Cell 9.3 10^3/uL (4.4-10.8)
[2019-12-30 10:59] LABS: Albumin 3.5 g/dL (3.4-5.0); Calcium 9.2 mg/dL (8.5-10.1); Potassium 4.5 mmol/L (3.5-5.1)
[2019-12-30 11:03] LABS: BUN/Creatinine Ratio 6.2; Bilirubin, Total 0.3 mg/dL (0.2-1.0); Total Protein 8.2 g/dL (6.4-8.2)
== END | disposition home or self-care (01) ==
LOC: LAB 10:08
PROVIDERS: ATTEND Internal Medicine
DX: E11.9 Type 2 diabetes mellitus without complications (principal); J44.9 Chronic obstructive pulmonary disease, unspecified; I27.20 Pulmonary hypertension, unspecified; I50.9 Heart failure, unspecified
CPT/HCPCS: 36415; 80053; 82043; 83880; 85025

== ENCOUNTER → 2020-06-19 | Outpatient (CLI) | payer OTHER ==
[~2020-06-19] MED LIST changes: +ALBUTEROL SULF 2.5 MG/0.5ML(0.5%) NEB SOLN ONE
== END | disposition home or self-care (01) ==
LOC: RT 08:35
PROVIDERS: ATTEND Internal Medicine Pulmonary Disease
DX: J44.9 Chronic obstructive pulmonary disease, unspecified (principal)
CPT/HCPCS: 94060; 94618; 94727; 94729

== ENCOUNTER → 2020-07-03 | Outpatient (CLI) | payer OTHER ==
[~2020-07-03] MED LIST changes: -ALBUTEROL SULF 2.5 MG/0.5ML(0.5%) NEB SOLN ONE
[2020-07-03 15:45] LABS: BUN/Creatinine Ratio 6.7; Calcium 8.8 mg/dL (8.5-10.1); Potassium 3.8 mmol/L (3.5-5.1)
== END | disposition home or self-care (01) ==
LOC: LAB 14:51
PROVIDERS: ATTEND Internal Medicine
DX: I10 Essential (primary) hypertension (principal); J44.9 Chronic obstructive pulmonary disease, unspecified
CPT/HCPCS: 36415; 80048; 83036; 84443

== ENCOUNTER → 2020-09-10 | Outpatient (CLI) | payer OTHER ==
[2020-09-10 13:54] LABS: BUN/Creatinine Ratio 5.4; Calcium 8.9 mg/dL (8.5-10.1)
== END | disposition home or self-care (01) ==
LOC: LAB 13:14
PROVIDERS: ATTEND Internal Medicine
DX: I11.0 Hypertensive heart disease with heart failure (principal); I50.9 Heart failure, unspecified; E11.9 Type 2 diabetes mellitus without complications; J44.9 Chronic obstructive pulmonary disease, unspecified
CPT/HCPCS: 36415; 80048; 83036; 84443

== ENCOUNTER → 2020-09-25 | Outpatient (CLI) | payer OTHER ==
[2020-09-25 11:18] LABS: Calcium 8.5 mg/dL (8.5-10.1)
[2020-09-25 11:21] LABS: BUN/Creatinine Ratio 7.7
== END | disposition home or self-care (01) ==
LOC: LAB 10:30
PROVIDERS: ATTEND Internal Medicine
DX: I10 Essential (primary) hypertension (principal); J44.9 Chronic obstructive pulmonary disease, unspecified
CPT/HCPCS: 36415; 80048

== ENCOUNTER → 2020-11-08 | Outpatient (CLI) | payer OTHER ==
[2020-11-08 14:51] LABS: Basophils # (auto) 0.1 10 ^3/uL (0-0.2); Eosinophils # (auto) 0.1 10 ^3/uL (0-0.8); Eosinophils % (auto) 1.3 % (0.0-7.0); Hematocrit 44.4 % (36.0-46.0); Hemoglobin 14.6 g/dL (12.2-16.2); Lymphocytes # (auto) 1.4 10 ^3/uL (0.4-5.4); Lymphocytes % (auto) 15.8 % (10.0-50.0); Monocytes # (auto) 0.8 10 ^3/uL (0-1.3); Monocytes % (auto) 8.8 % (0.0-12.0); Neutrophils # (auto) 6.4 10 ^3/uL (1.6-8.6); Neutrophils % (auto) 73.1 % (37.0-80.0); Nucleated Red Blood Cells % 0.1 %; Platelet Count (auto) 238 10^3/uL (140-450); Red Blood Cells 4.88 10^6/uL (4.0-5.20); Red Cell Distribution Width 16.3 % (11.8-14.3); White Blood Cell 8.7 10^3/uL (4.4-10.8)
[2020-11-08 15:26] LABS: Albumin 3.3 g/dL (3.4-5.0); Calcium 8.2 mg/dL (8.5-10.1); Potassium 4.7 mmol/L (3.5-5.1)
[2020-11-08 15:30] LABS: Bilirubin, Total 0.2 mg/dL (0.2-1.0); Total Protein 7.3 g/dL (6.4-8.2)
== END | disposition home or self-care (01) ==
LOC: LAB 14:38
PROVIDERS: ATTEND Internal Medicine
DX: C18.9 Malignant neoplasm of colon, unspecified (principal); I10 Essential (primary) hypertension; Z88.0 Allergy status to penicillin; Z88.2 Allergy status to sulfonamides; Z88.8 Allergy status to other drugs, medicaments and biological substances
CPT/HCPCS: 36415; 80053; 82378; 83615; 85025

== ENCOUNTER → 2020-12-03 | Outpatient (CLI) | payer OTHER ==
[2020-12-03 10:57] LABS: Calcium 8.9 mg/dL (8.5-10.1); Potassium 4.2 mmol/L (3.5-5.1)
[2020-12-03 10:59] LABS: BUN/Creatinine Ratio 7.1
== END | disposition home or self-care (01) ==
LOC: LAB 10:21
PROVIDERS: ATTEND Internal Medicine
DX: I11.0 Hypertensive heart disease with heart failure (principal); I50.9 Heart failure, unspecified
CPT/HCPCS: 36415; 80048; 83880

== ENCOUNTER → 2021-01-15 | Outpatient (CLI) | payer OTHER ==
[2021-01-15 16:13] LABS: Anion Gap 5 (5-15); Blood Urea Nitrogen 5 mg/dL (7-18); Carbon Dioxide 29 mmol/L (21-32); Chloride 102 mmol/L (98-107); Glucose 90 mg/dL (74-106); Potassium 4.8 mmol/L (3.5-5.1); Sodium 136 mmol/L (136-145)
[2021-01-15 16:14] LABS: BUN/Creatinine Ratio 6.8; Calcium 8.4 mg/dL (8.5-10.1); GFR African American 100 mL/min; GFR Non-African American 83 mL/min
== END | disposition home or self-care (01) ==
LOC: LAB 15:08
PROVIDERS: ATTEND Internal Medicine
DX: I12.9 Hypertensive chronic kidney disease with stage 1 through stage 4 chronic kidney disease, or unspecified chronic kidney disease (principal); E11.22 Type 2 diabetes mellitus with diabetic chronic kidney disease; N18.30 Chronic kidney disease, stage 3 unspecified; I50.9 Heart failure, unspecified
CPT/HCPCS: 36415; 80048; 83036; 83880

== ENCOUNTER 2021-02-20 11:22 | Observation (INO) | payer OTHER ==
[~2021-02-20] VITALS: Ht 167.6 cm; Wt 70.7 kg
[2021-02-20 12:23] LABS: Basophils # (auto) 0.1 10 ^3/uL (0-0.2); Basophils % (auto) 0.4 % (0.0-2.0); Eosinophils # (auto) 0 10 ^3/uL (0-0.8); Hematocrit 44.2 % (36.0-46.0); Hemoglobin 14.6 g/dL (12.2-16.2); Lymphocytes # (auto) 1.1 10 ^3/uL (0.4-5.4); Lymphocytes % (auto) 7.9 % (10.0-50.0); Mean Corpuscular Hemoglobin 29.3 pg (28.0-32.0); Mean Corpuscular Volume 88.7 fL (80.0-100.0); Monocytes # (auto) 0.7 10 ^3/uL (0-1.3); Monocytes % (auto) 4.8 % (0.0-12.0); Neutrophils # (auto) 11.7 10 ^3/uL (1.6-8.6); Neutrophils % (auto) 86.9 % (37.0-80.0); Nucleated Red Blood Cells % 0.1 %; Platelet Count (auto) 243 10^3/uL (140-450); Red Blood Cells 4.98 10^6/uL (4.0-5.20); Red Cell Distribution Width 16.9 % (11.8-14.3); White Blood Cell 13.5 10^3/uL (4.4-10.8)
[2021-02-20 12:31] LABS: Chloride 91 mmol/L (98-107); Potassium 3.3 mmol/L (3.5-5.1); Sodium 131 mmol/L (136-145)
[2021-02-20 12:38] LABS: Lactic Acid w/Reflex 2.2 mmol/L (0.4-2.0)
[2021-02-20 12:40] LABS: Alanine Aminotransferase 10 U/L (13-56); Albumin 2.9 g/dL (3.4-5.0); Alkaline Phosphatase 135 U/L (45-117); Anion Gap 7 (5-15); Aspartate Aminotransferase 10 U/L (15-37); BUN/Creatinine Ratio 8.6; Bilirubin, Total 0.2 mg/dL (0.2-1.0); Blood Alcohol < 3.0 mg/dL (0-5); Blood Urea Nitrogen 17 mg/dL (7-18); Carbon Dioxide 33 mmol/L (21-32); GFR African American 32 mL/min; GFR Non-African American 27 mL/min; Glucose 130 mg/dL (74-106); Magnesium 2.1 mg/dL (1.6-2.6); Total Protein 7.1 g/dL (6.4-8.2)
[2021-02-20] MEDS ORDERED: POTASSIUM CHL 20MEQ/100ML 100 ML IV ONE (13:00)
[2021-02-20] MEDS ORDERED: FUROSEMIDE 40 MG/4 ML VIAL IV ONE (13:00)
[2021-02-20] MEDS ORDERED: MORPHINE SULF INJ 2 MG/ML SYRINGE 1ML IV PRN ×2 (15:15)
[2021-02-20] MEDS ORDERED: ONDANSETRON HCL 4 MG/2 ML VIAL IV PRN (15:15)
[2021-02-20] MEDS ORDERED: DEXTROSE (50%) 50ML SYRG IV PRN (15:15)
[2021-02-20] MEDS ORDERED: NITROGLYCERIN 0.4 MG SL TAB SL PRN (15:15)
[2021-02-20] MEDS ORDERED: HYDROcodone-ACET 5/325MG TAB PO PRN (15:15)
[2021-02-20 16:10] LABS: Cholesterol 177 mg/dL (< 200); Triglycerides 192 mg/dL (< 150)
[2021-02-20 16:13] LABS: HDL Cholesterol 56 mg/dL (40-59); LDL Cholesterol 81 mg/dL (< 100)
[2021-02-20 17:20] LABS: Urine WBC None Seen /hpf (0 - 5)
[2021-02-20 17:35] LABS: Urine Bacteria NONE SEEN /hpf (None Seen); Urine Blood Negative /uL (Negative)
[2021-02-20 17:47] LABS: Alcohol, Urine < 3.0 mg/dL (0-10); Amphetamine Screen, Urine NEGATIVE (NEGATIVE); Barbiturate Scree,Urine NEGATIVE (NEGATIVE); Benzodiazephine Screen, Urine NEGATIVE (NEGATIVE); Cannabinoid Screen, Urine POSITIVE (NEGATIVE); Cocaine Screen, Urine NEGATIVE (NEGATIVE); Opiate Scree,Urine POSITIVE (NEGATIVE); Phencyclidine Screen, Urine NEGATIVE (NEGATIVE)
[2021-02-20] MEDS ORDERED: ALBUTEROL SULF 2.5 MG/0.5ML(0.5%) NEB SOLN NEB SCH (18:00)
[2021-02-20] MEDS: ALBUTEROL SULF 2.5 MG/0.5ML(0.5%) NEB SOLN NEB SCH ×2 (18:05→19:47)
[2021-02-20] MEDS: IPRATROPIUM BROM 0.5 MG/2.5ML INH SOL NEB SCH (18:05)
[2021-02-20] MEDS: BUDESONIDE (INHALATION) 0.5 MG/2 ML NEB NEB SCH (18:05)
[2021-02-20] MEDS: ACCU-CHEK COMFORT CURVE STRIP VI SCH ×2 (18:24→22:43)
[2021-02-20] MEDS: methylPREDNISolone SOD SUCC 125 MG/2 ML VL IV SCH (18:25)
[2021-02-20] MEDS: ENOXAPARIN SOD 30 MG/0.3 ML SYRINGE SC SCH (18:25)
[2021-02-20] MEDS: InsuLIN REG 1unit/0.01ml Soln (100units/ml) SC SCH ×2 (18:25→22:43)
[2021-02-20] MEDS: levoFLOXacin 250MG 50 ML IV SCH (19:12)
[2021-02-20 22:00] VITALS: BP 133/75
[2021-02-20] MEDS ORDERED: ATORVASTATIN 20 MG TAB PO SCH (22:00)
[2021-02-21 01:00] VITALS: BP 133/75
[2021-02-21] MEDS: methylPREDNISolone SOD SUCC 125 MG/2 ML VL IV SCH (04:16)
[2021-02-21 05:00] VITALS: BP 135/72
[2021-02-21 05:31] LABS: Basophils # (auto) 0 10 ^3/uL (0-0.2); Basophils % (auto) 0.3 % (0.0-2.0); Eosinophils # (auto) 0 10 ^3/uL (0-0.8); Hematocrit 39.5 % (36.0-46.0); Hemoglobin 13.8 g/dL (12.2-16.2); Lymphocytes # (auto) 1.5 10 ^3/uL (0.4-5.4); Mean Corpuscular Hemoglobin 30.4 pg (28.0-32.0); Mean Corpuscular Hgb Conc. 34.9 g/dL (32.0-36.0); Mean Corpuscular Volume 87.3 fL (80.0-100.0); Monocytes # (auto) 0.8 10 ^3/uL (0-1.3); Monocytes % (auto) 6.9 % (0.0-12.0); Neutrophils # (auto) 9.1 10 ^3/uL (1.6-8.6); Neutrophils % (auto) 79.8 % (37.0-80.0); Platelet Count (auto) 213 10^3/uL (140-450); Red Blood Cells 4.53 10^6/uL (4.0-5.20); Red Cell Distribution Width 16.9 % (11.8-14.3); White Blood Cell 11.4 10^3/uL (4.4-10.8)
[2021-02-21 05:56] LABS: Potassium 3.2 mmol/L (3.5-5.1)
[2021-02-21 05:58] LABS: BUN/Creatinine Ratio 18.2
[2021-02-21] MEDS: IPRATROPIUM BROM 0.5 MG/2.5ML INH SOL NEB SCH (06:23)
[2021-02-21] MEDS: BUDESONIDE (INHALATION) 0.5 MG/2 ML NEB NEB SCH (06:23)
[2021-02-21] MEDS: ALBUTEROL SULF 2.5 MG/0.5ML(0.5%) NEB SOLN NEB SCH ×2 (06:23→18:00)
[2021-02-21] MEDS: ACCU-CHEK COMFORT CURVE STRIP VI SCH ×3 (06:47→16:31)
[2021-02-21] MEDS: InsuLIN REG 1unit/0.01ml Soln (100units/ml) SC SCH ×3 (06:47→17:00)
[2021-02-21 09:00] VITALS: BP 157/89
[2021-02-21] MEDS: levoFLOXacin 250MG 50 ML IV SCH (09:18)
[2021-02-21] MEDS ORDERED: RAMIPRIL 2.5 MG CAP PO SCH (10:00)
[2021-02-21] MEDS ORDERED: FUROSEMIDE 40 MG/4 ML VIAL IV SCH (10:00)
[2021-02-21] MEDS: ENOXAPARIN SOD 30 MG/0.3 ML SYRINGE SC SCH (10:00)
[2021-02-21] MEDS ORDERED: NICOTINE 21MG/24 HR TOPICAL PATCH TD SCH (10:00)
[2021-02-21] MEDS ORDERED: POTASSIUM CHL 20 Meq TABLET PO ONE (12:30)
[2021-02-21 16:55] VITALS: BP 126/77
[2021-02-21] MEDS ORDERED: levoFLOXacin 250MG 50 ML IV ONE (18:15)
[2021-02-21 22:19] VITALS: BP 165/89
[2021-02-22] MEDS ORDERED: levoFLOXacin 500MG 100 ML IV SCH (10:00)
== END 2021-02-21 21:30 | disposition home or self-care (01) ==
LOC: ER 11:22 → EDBD 11:22 → TELE 15:02 → TELE-CENTR 22:40
PROVIDERS: ADMIT Nurse Practitioner Acute Care; ATTEND Internal Medicine
DX: J96.21 Acute and chronic respiratory failure with hypoxia (principal); Z20.822 Contact with and (suspected) exposure to COVID-19; E87.6 Hypokalemia; J44.1 Chronic obstructive pulmonary disease with (acute) exacerbation; G93.41 Metabolic encephalopathy; J18.9 Pneumonia, unspecified organism; E11.22 Type 2 diabetes mellitus with diabetic chronic kidney disease; I13.0 Hypertensive heart and chronic kidney disease with heart failure and stage 1 through stage 4 chronic kidney disease, or unspecified chronic kidney disease; N18.30 Chronic kidney disease, stage 3 unspecified; I50.43 Acute on chronic combined systolic (congestive) and diastolic (congestive) heart failure; E87.2 Acidosis; N17.9 Acute kidney failure, unspecified; R41.82 Altered mental status, unspecified; D72.829 Elevated white blood cell count, unspecified; E87.8 Other disorders of electrolyte and fluid balance, not elsewhere classified; E78.5 Hyperlipidemia, unspecified; E87.1 Hypo-osmolality and hyponatremia; G93.1 Anoxic brain damage, not elsewhere classified; I25.10 Atherosclerotic heart disease of native coronary artery without angina pectoris; Z79.899 Other long term (current) drug therapy; W18.39XA Other fall on same level, initial encounter; Y92.89 Other specified places as the place of occurrence of the external cause; Y93.89 Activity, other specified
CPT/HCPCS: 36415; 36600; 70450; 71045; 80048; 80053; 80061; 80307; 80320; 81001; 82553; 82728; 82805; 82962; 83036; 83605; 83735; 83880; 84484; 85025; 85379; 86141; 87040; 87426; 93005; 93306; 93970; 94640; 96365; 96366; 96367; 96372; 96375; 96376; 99291; G0378; J1650; J1815; J1940; J1956; J2270; J2930; J3480; J7030; J7644

== ENCOUNTER → 2021-03-01 | Outpatient (CLI) | payer OTHER | END | disposition home or self-care (01) | LOC: US 11:08 | PROVIDERS: ATTEND Internal Medicine | DX: R60.0 Localized edema (principal) | CPT/HCPCS: 93971 ==

== ENCOUNTER 2021-05-12 09:52 | Emergency (ER) | payer OTHER ==
[~2021-05-12] VITALS: Ht 154.9 cm; Wt 68.0 kg
[2021-05-12] MEDS ORDERED: FUROSEMIDE 40 MG/4 ML VIAL IV ONE (10:15)
[2021-05-12 11:07] VITALS: BP 122/54
[2021-05-12] MEDS ORDERED: HYDROcodone-ACET 7.5/325MG TAB PO ONE (11:45)
== END 2021-05-12 17:59 | disposition home or self-care (01) ==
LOC: ER 09:52
DX: J44.1 Chronic obstructive pulmonary disease with (acute) exacerbation (principal); I11.0 Hypertensive heart disease with heart failure; I50.9 Heart failure, unspecified; E11.9 Type 2 diabetes mellitus without complications; E78.5 Hyperlipidemia, unspecified; F17.210 Nicotine dependence, cigarettes, uncomplicated; Z20.822 Contact with and (suspected) exposure to COVID-19; Z88.1 Allergy status to other antibiotic agents; Z88.2 Allergy status to sulfonamides; Z88.0 Allergy status to penicillin; Z88.6 Allergy status to analgesic agent; Z79.899 Other long term (current) drug therapy; Z90.89 Acquired absence of other organs; Z90.49 Acquired absence of other specified parts of digestive tract; Z90.710 Acquired absence of both cervix and uterus; Z98.890 Other specified postprocedural states
CPT/HCPCS: 36415; 71250; 87426; 93005; 96374; 99285; J1940

== ENCOUNTER 2021-05-14 23:29 | Inpatient (IN) | payer OTHER ==
[~2021-05-14] VITALS: Ht 165.1 cm; Wt 65.1 kg
[~2021-05-14 23:29] MED LIST changes: +AZIT250T9 PO; +PANT40T PO; +PRED10TA PO
[2021-05-15 03:49] LABS: Basophils # (auto) 0 10 ^3/uL (0-0.2); Basophils % (auto) 0.2 % (0.0-2.0); Eosinophils # (auto) 0 10 ^3/uL (0-0.8); Hematocrit 39.3 % (36.0-46.0); Hemoglobin 13.3 g/dL (12.2-16.2); Lymphocytes # (auto) 0.8 10 ^3/uL (0.4-5.4); Lymphocytes % (auto) 3.7 % (10.0-50.0); Mean Corpuscular Hemoglobin 30.4 pg (28.0-32.0); Mean Corpuscular Hgb Conc. 33.9 g/dL (32.0-36.0); Mean Corpuscular Volume 89.7 fL (80.0-100.0); Monocytes # (auto) 1.7 10 ^3/uL (0-1.3); Monocytes % (auto) 8.1 % (0.0-12.0); Neutrophils # (auto) 18.7 10 ^3/uL (1.6-8.6); Nucleated Red Blood Cells % 0.1 %; Red Blood Cells 4.39 10^6/uL (4.0-5.20); White Blood Cell 21.3 10^3/uL (4.4-10.8)
[2021-05-15 03:50] LABS: INR 0.95 (0.9-1.15)
[2021-05-15 03:55] LABS: Albumin 2.9 g/dL (3.4-5.0); BUN/Creatinine Ratio 5.6; Magnesium 2.1 mg/dL (1.6-2.6); Potassium 3.7 mmol/L (3.5-5.1)
[2021-05-15 04:00] LABS: Bilirubin, Total 0.4 mg/dL (0.2-1.0); Total Protein 7.1 g/dL (6.4-8.2)
[2021-05-15] MEDS ORDERED: ALBUTEROL SULF 2.5 MG/0.5ML(0.5%) NEB SOLN ONE (04:14)
[2021-05-15] MEDS ORDERED: IPRATROPIUM BROM 0.5 MG/2.5ML INH SOL ONE (04:14)
[2021-05-15] MEDS ORDERED: SODIUM CHLORIDE 0.9% 500 ML IV ONE (04:15)
[2021-05-15] MEDS ORDERED: ALBUTEROL SULF 2.5 MG/0.5ML(0.5%) NEB SOLN NEB ONE (04:15)
[2021-05-15] MEDS ORDERED: IPRATROPIUM BROM 0.5 MG/2.5ML INH SOL NEB ONE (04:15)
[2021-05-15] MEDS ORDERED: AZITHROMYCIN 500MG/ 250ML 250 ML IV ONE (04:15)
[2021-05-15] MEDS ORDERED: cefTRIAXone 1GM/50ML D5W 50 ML IV ONE (04:15)
[2021-05-15] MEDS ORDERED: methylPREDNISolone SOD SUCC 125 MG/2 ML VL IV ONE (04:15)
[2021-05-15] MEDS ORDERED: REMDESIVIR PER PHARMACY 0 ML IV SCH (06:15)
[2021-05-15] MEDS ORDERED: ALBUTEROL SULF HFA 90MCG INH 200DOSE IN PRN (06:15)
[2021-05-15] MEDS ORDERED: DOCUSATE SOD 100 MG CAP PO PRN (06:15)
[2021-05-15] MEDS ORDERED: ALUM & MAG HYDROX-SIMETH LIQ(MAALOX) 30 ML PO PRN (06:15)
[2021-05-15] MEDS ORDERED: DEXTROSE (50%) 50ML SYRG IV PRN (06:15)
[2021-05-15] MEDS: SODIUM CHLORIDE 0.9% 1,000 ML IV SCH ×2 (07:00→22:55)
[2021-05-15] MEDS ORDERED: FLORASTOR (S. BOULARDII) 250 MG CAP PO SCH (10:00)
[2021-05-15] MEDS ORDERED: ENOXAPARIN SOD 40 MG/0.4 ML SYRINGE SC SCH (10:00)
[2021-05-15] MEDS ORDERED: AZITHROMYCIN 500MG/ 250ML 250 ML IV SCH (10:00)
[2021-05-15] MEDS ORDERED: ASCORBIC ACID 1,000 MG TAB PO SCH (10:00)
[2021-05-15] MEDS ORDERED: BUDESONIDE (INHALATION) 180 MCG IH IN SCH (10:00)
[2021-05-15] MEDS ORDERED: ZINC SULFATE 220mg CAP or TAB PO SCH (10:00)
[2021-05-15] MEDS ORDERED: DexAMETHasone SOD PHOS 10MG/1ML VIAL INJ IV SCH (10:00)
[2021-05-15] MEDS ORDERED: CHOLECALCIFEROL (VITD3) 2,000 UNIT CAP/TAB PO SCH (10:00)
[2021-05-15] MEDS ORDERED: CEFEPIME 1 GM in SODIUM CHL 0.9% 50 ML IV ONE ×3 (10:15→11:00)
[2021-05-15] MEDS ORDERED: LINEZOLID 600MG/300ML 300 ML IV ONE ×2 (10:15→11:30)
[2021-05-15 11:25] LABS: Basophils # (auto) 0 10 ^3/uL (0-0.2); Basophils % (auto) 0.1 % (0.0-2.0); Eosinophils # (auto) 0 10 ^3/uL (0-0.8); Hematocrit 38.3 % (36.0-46.0); Hemoglobin 12.9 g/dL (12.2-16.2); Lymphocytes # (auto) 0.4 10 ^3/uL (0.4-5.4); Mean Corpuscular Hemoglobin 30.2 pg (28.0-32.0); Mean Corpuscular Hgb Conc. 33.8 g/dL (32.0-36.0); Mean Corpuscular Volume 89.5 fL (80.0-100.0); Monocytes # (auto) 0.7 10 ^3/uL (0-1.3); Monocytes % (auto) 3.6 % (0.0-12.0); Neutrophils # (auto) 18.8 10 ^3/uL (1.6-8.6); Neutrophils % (auto) 94.3 % (37.0-80.0); Red Blood Cells 4.28 10^6/uL (4.0-5.20); Red Cell Distribution Width 16.1 % (11.8-14.3)
[2021-05-15 11:44] LABS: BUN/Creatinine Ratio 6.1; Calcium 7.7 mg/dL (8.5-10.1)
[2021-05-15] MEDS ORDERED: IPRATROPIUM BROMIDE HFA AER IN SCH (12:00)
[2021-05-15] MEDS ORDERED: ACCU-CHEK COMFORT CURVE STRIP VI SCH (12:00)
[2021-05-15] MEDS ORDERED: InsuLIN REG 1unit/0.01ml Soln (100units/ml) SC SCH (12:00)
[2021-05-15] MEDS: InsuLIN REG 1unit/0.01ml Soln (100units/ml) SC SCH ×2 (16:54→22:00)
[2021-05-15] MEDS: ACCU-CHEK COMFORT CURVE STRIP VI SCH ×2 (16:54→22:11)
[2021-05-15] MEDS: ALBUTEROL SULF 2.5 MG/0.5ML(0.5%) NEB SOLN NEB SCH ×2 (18:02→23:42)
[2021-05-15] MEDS: IPRATROPIUM BROM 0.5 MG/2.5ML INH SOL NEB SCH ×2 (18:02→23:42)
[2021-05-15] MEDS: BUDESONIDE (INHALATION) 0.5 MG/2 ML NEB NEB SCH (18:02)
[2021-05-15 19:30] VITALS: BP 157/68
[2021-05-15] MEDS: MORPHINE SULFATE INJECTION 2 MG/ML SYRG IV PRN (22:11)
[2021-05-15] MEDS: LINEZOLID 600MG/300ML 300 ML IV SCH (22:11)
[2021-05-15 23:05] VITALS: BP 156/72
[2021-05-16] MEDS: MORPHINE SULFATE INJECTION 2 MG/ML SYRG IV PRN ×3 (02:21→14:23)
[2021-05-16 05:00] VITALS: BP 156/94
[2021-05-16 05:53] LABS: Basophils # (auto) 0.1 10 ^3/uL (0-0.2); Basophils % (auto) 0.3 % (0.0-2.0); Eosinophils # (auto) 0 10 ^3/uL (0-0.8); Hematocrit 36.8 % (36.0-46.0); Hemoglobin 12.4 g/dL (12.2-16.2); Lymphocytes # (auto) 0.9 10 ^3/uL (0.4-5.4); Lymphocytes % (auto) 4.8 % (10.0-50.0); Mean Corpuscular Hgb Conc. 33.7 g/dL (32.0-36.0); Mean Corpuscular Volume 88.9 fL (80.0-100.0); Monocytes # (auto) 1.3 10 ^3/uL (0-1.3); Monocytes % (auto) 7.4 % (0.0-12.0); Neutrophils # (auto) 15.7 10 ^3/uL (1.6-8.6); Neutrophils % (auto) 87.5 % (37.0-80.0); Red Blood Cells 4.14 10^6/uL (4.0-5.20); Red Cell Distribution Width 15.9 % (11.8-14.3)
[2021-05-16] MEDS: IPRATROPIUM BROM 0.5 MG/2.5ML INH SOL NEB SCH ×4 (06:00→23:37)
[2021-05-16] MEDS: ALBUTEROL SULF 2.5 MG/0.5ML(0.5%) NEB SOLN NEB SCH ×4 (06:00→23:37)
[2021-05-16 06:11] LABS: Albumin 2.5 g/dL (3.4-5.0); Calcium 7.6 mg/dL (8.5-10.1); Potassium 4.1 mmol/L (3.5-5.1)
[2021-05-16 06:13] LABS: BUN/Creatinine Ratio 6.6
[2021-05-16 06:16] LABS: Bilirubin, Total 0.3 mg/dL (0.2-1.0); Total Protein 6.5 g/dL (6.4-8.2)
[2021-05-16] MEDS: ACCU-CHEK COMFORT CURVE STRIP VI SCH ×4 (06:30→22:49)
[2021-05-16] MEDS: InsuLIN REG 1unit/0.01ml Soln (100units/ml) SC SCH ×4 (06:30→22:49)
[2021-05-16] MEDS: BUDESONIDE (INHALATION) 0.5 MG/2 ML NEB NEB SCH ×2 (06:55→18:33)
[2021-05-16 08:21] VITALS: BP 159/85
[2021-05-16] MEDS: HYDROcodone-ACET 5/325MG TAB PO PRN (08:41)
[2021-05-16] MEDS: LINEZOLID 600MG/300ML 300 ML IV SCH ×2 (10:07→22:49)
[2021-05-16] MEDS: ENOXAPARIN SOD 30 MG/0.3 ML SYRINGE SC SCH (10:08)
[2021-05-16 12:22] VITALS: BP 166/80
[2021-05-16] MEDS ORDERED: CARISOPRODOL 350 MG TAB PO PRN (14:00)
[2021-05-16 14:08] LABS: Urine Amorphous Crystal FEW /hpf (None Seen); Urine Bacteria FEW /hpf (None Seen); Urine Blood 1+ /uL (Negative); Urine Specific Gravity 1.007 (1.001-1.035); Urine WBC 25 /hpf (0 - 5)
[2021-05-16] MEDS: CEFEPIME 1 GM in SODIUM CHL 0.9% 50 ML IV SCH (14:23)
[2021-05-16] MEDS ORDERED: GABA-339 PO (14:55)
[2021-05-16] MEDS ORDERED: CARV6.2551 PO (14:55)
[2021-05-16] MEDS ORDERED: SPIR25TA8 PO (14:55)
[2021-05-16] MEDS ORDERED: LISI20TA28 PO (14:55)
[2021-05-16] MEDS ORDERED: CLON0.1T PO (14:55)
[2021-05-16] MEDS ORDERED: AMLO-496 PO (14:55)
[2021-05-16] MEDS ORDERED: FURO40TA4 PO (14:55)
[2021-05-16] MEDS ORDERED: ZOLP10TA6 PO (14:55)
[2021-05-16] MEDS ORDERED: ALPR0.255 PO (14:55)
[2021-05-16] MEDS ORDERED: CLOP75TA70 PO (14:55)
[2021-05-16] MEDS ORDERED: ATOR40TA52 PO (14:55)
[2021-05-16] MEDS ORDERED: UMEC1AER IN (14:56)
[2021-05-16] MEDS: SODIUM CHLORIDE 0.9% 1,000 ML IV SCH (15:43)
[2021-05-16 16:46] VITALS: BP 150/78
[2021-05-16] MEDS: FUROSEMIDE 100 MG/10ML VIAL IV ONE ×2 (17:51→21:14)
[2021-05-16] MEDS: LACTATED RINGER'S 1,000 ML IV SCH (17:55)
[2021-05-16 22:15] VITALS: BP 174/84
[2021-05-17] MEDS: LACTATED RINGER'S 1,000 ML IV SCH (02:15)
[2021-05-17] MEDS: MORPHINE SULFATE INJECTION 2 MG/ML SYRG IV PRN (02:59)
[2021-05-17 05:19] VITALS: BP 136/62
[2021-05-17] MEDS: InsuLIN REG 1unit/0.01ml Soln (100units/ml) SC SCH ×4 (06:29→21:37)
[2021-05-17] MEDS: ACCU-CHEK COMFORT CURVE STRIP VI SCH ×4 (06:35→21:37)
[2021-05-17] MEDS: ALBUTEROL SULF 2.5 MG/0.5ML(0.5%) NEB SOLN NEB SCH ×3 (07:40→18:24)
[2021-05-17] MEDS: BUDESONIDE (INHALATION) 0.5 MG/2 ML NEB NEB SCH ×2 (07:42→18:24)
[2021-05-17] MEDS: IPRATROPIUM BROM 0.5 MG/2.5ML INH SOL NEB SCH ×3 (07:42→18:24)
[2021-05-17] MEDS ORDERED: FUROSEMIDE 20 MG/2 ML VIAL IV ONE (08:00)
[2021-05-17] MEDS ORDERED: FUROSEMIDE INJECTION 10 ML ONE (08:02)
[2021-05-17 09:00] VITALS: BP 130/85
[2021-05-17] MEDS ORDERED: HALOPERIDOL LACTATE 5 MG/ML INJ VIAL IM PRN (09:45)
[2021-05-17 10:04] LABS: Basophils # (auto) 0.1 10 ^3/uL (0-0.2); Basophils % (auto) 0.8 % (0.0-2.0); Eosinophils # (auto) 0 10 ^3/uL (0-0.8); Eosinophils % (auto) 0.1 % (0.0-7.0); Hematocrit 36.2 % (36.0-46.0); Hemoglobin 12.6 g/dL (12.2-16.2); Lymphocytes # (auto) 0.7 10 ^3/uL (0.4-5.4); Lymphocytes % (auto) 5.5 % (10.0-50.0); Mean Corpuscular Hemoglobin 30.8 pg (28.0-32.0); Mean Corpuscular Hgb Conc. 34.7 g/dL (32.0-36.0); Mean Corpuscular Volume 88.9 fL (80.0-100.0); Monocytes # (auto) 1.2 10 ^3/uL (0-1.3); Monocytes % (auto) 9.5 % (0.0-12.0); Neutrophils # (auto) 10.8 10 ^3/uL (1.6-8.6); Neutrophils % (auto) 84.1 % (37.0-80.0); Red Blood Cells 4.07 10^6/uL (4.0-5.20); Red Cell Distribution Width 15.7 % (11.8-14.3); White Blood Cell 12.9 10^3/uL (4.4-10.8)
[2021-05-17 10:27] LABS: BUN/Creatinine Ratio 7.1; Calcium 7.7 mg/dL (8.5-10.1); Potassium 4.4 mmol/L (3.5-5.1)
[2021-05-17] MEDS: ENOXAPARIN SOD 30 MG/0.3 ML SYRINGE SC SCH (11:38)
[2021-05-17] MEDS: LINEZOLID 600MG/300ML 300 ML IV SCH ×2 (11:39→21:38)
[2021-05-17 13:00] VITALS: BP 146/74
[2021-05-17] MEDS: CEFEPIME 1 GM in SODIUM CHL 0.9% 50 ML IV SCH (13:40)
[2021-05-17] MEDS: FUROSEMIDE 100 MG/10ML VIAL IV SCH ×2 (14:15→18:00)
[2021-05-17] MEDS: HYDROcodone-ACET 5/325MG TAB PO PRN (16:30)
[2021-05-17 17:00] VITALS: BP 107/64
[2021-05-17 17:50] VITALS: BP 107/64
[2021-05-17 20:00] VITALS: BP 164/87
[2021-05-17] MEDS: LORazepam 0.5 MG TAB PO PRN (23:40)
[2021-05-18] VITALS (16 sets, daily range): BP systolic 107–185; BP diastolic 50–90
[2021-05-18] MEDS: ALBUTEROL SULF 2.5 MG/0.5ML(0.5%) NEB SOLN NEB SCH ×4 (00:19→18:06)
[2021-05-18] MEDS: IPRATROPIUM BROM 0.5 MG/2.5ML INH SOL NEB SCH ×4 (00:19→18:06)
[2021-05-18] MEDS: BUDESONIDE (INHALATION) 0.5 MG/2 ML NEB NEB SCH ×2 (06:25→18:06)
[2021-05-18] MEDS: ACCU-CHEK COMFORT CURVE STRIP VI SCH ×4 (06:34→23:30)
[2021-05-18] MEDS: FUROSEMIDE 100 MG/10ML VIAL IV SCH (06:34)
[2021-05-18] MEDS: InsuLIN REG 1unit/0.01ml Soln (100units/ml) SC SCH ×4 (06:35→22:00)
[2021-05-18 08:12] LABS: Basophils # (auto) 0.1 10 ^3/uL (0-0.2); Basophils % (auto) 0.4 % (0.0-2.0); Eosinophils # (auto) 0 10 ^3/uL (0-0.8); Eosinophils % (auto) 0.1 % (0.0-7.0); Hematocrit 38.2 % (36.0-46.0); Lymphocytes # (auto) 0.6 10 ^3/uL (0.4-5.4); Lymphocytes % (auto) 4.5 % (10.0-50.0); Mean Corpuscular Hemoglobin 30.3 pg (28.0-32.0); Mean Corpuscular Hgb Conc. 34.1 g/dL (32.0-36.0); Mean Corpuscular Volume 88.9 fL (80.0-100.0); Monocytes # (auto) 1.4 10 ^3/uL (0-1.3); Monocytes % (auto) 10.5 % (0.0-12.0); Neutrophils # (auto) 11.7 10 ^3/uL (1.6-8.6); Neutrophils % (auto) 84.5 % (37.0-80.0); Red Cell Distribution Width 15.6 % (11.8-14.3); White Blood Cell 13.8 10^3/uL (4.4-10.8)
[2021-05-18 08:29] LABS: BUN/Creatinine Ratio 7.8; Calcium 7.9 mg/dL (8.5-10.1); Potassium 4.5 mmol/L (3.5-5.1)
[2021-05-18] MEDS: ENOXAPARIN SOD 30 MG/0.3 ML SYRINGE SC SCH (09:15)
[2021-05-18] MEDS: CEFEPIME 1 GM in SODIUM CHL 0.9% 50 ML IV SCH (09:15)
[2021-05-18] MEDS: MORPHINE SULFATE INJECTION 2 MG/ML SYRG IV PRN ×2 (09:15→23:13)
[2021-05-18] MEDS: LINEZOLID 600MG/300ML 300 ML IV SCH ×2 (09:16→23:19)
[2021-05-18] MEDS ORDERED: BUMETANIDE 2.5mg/10ml (0.25 mg/ml) INJ IV ONE (10:00)
[2021-05-18] MEDS ORDERED: BISACODYL 10 MG RECT SUPP PR ONE (12:45)
[2021-05-18] MEDS ORDERED: LORazepam 2MG/ML-1ML VIAL ONE (16:41)
[2021-05-18] MEDS ORDERED: HEPARIN SODIUM (PORCINE) 5000 UNITS/ML 1ML VIAL ONE (17:00)
[2021-05-18] MEDS: BUMETANIDE INJECTION 25 MG in GIVE UN-DILUTED 0 ML IV SCH (17:50)
[2021-05-18] MEDS ORDERED: LORazepam 2MG/ML-1ML VIAL IV ONE (18:00)
[2021-05-18] MEDS ORDERED: HEPARIN 1,000 UNITS/ml 1ML VIAL IV ONE (18:00)
[2021-05-18] MEDS ORDERED: SODIUM CHL 0.9% 1000 ML BAG XX ONE (18:45)
[2021-05-18] MEDS: NOREPINEPHRINE 8 MG/250ML KIT 250 ML IV SCH (19:30)
[2021-05-18] MEDS ORDERED: ALBUMIN 25% 100 ML IV PRN (19:30)
[2021-05-18] MEDS ORDERED: diphenhdrAMINE HCL 50 MG/1 ML VL IV PRN (21:15)
[2021-05-18] MEDS: SODIUM CHLOR 0.9% PF (SALINE LOCK) 10ML VIAL/SYR IV SCH (23:29)
[2021-05-19] VITALS (26 sets, daily range): BP systolic 112–174; BP diastolic 48–73
[2021-05-19 00:12] LABS: Alcohol, Urine < 3.0 mg/dL (0-10); Amphetamine Screen, Urine NEGATIVE (NEGATIVE); Barbiturate Scree,Urine NEGATIVE (NEGATIVE); Benzodiazephine Screen, Urine NEGATIVE (NEGATIVE); Cannabinoid Screen, Urine NEGATIVE (NEGATIVE); Cocaine Screen, Urine NEGATIVE (NEGATIVE); Opiate Scree,Urine NEGATIVE (NEGATIVE); Phencyclidine Screen, Urine NEGATIVE (NEGATIVE); Protein, Urine 95.9 mg/dL (0.0-11.9)
[2021-05-19] MEDS: ALBUTEROL SULF 2.5 MG/0.5ML(0.5%) NEB SOLN NEB SCH ×4 (00:19→17:54)
[2021-05-19] MEDS: IPRATROPIUM BROM 0.5 MG/2.5ML INH SOL NEB SCH ×4 (00:19→17:54)
[2021-05-19] MEDS: hydrALAZINE HCL 20 MG/ML VL IV PRN ×2 (00:56→11:42)
[2021-05-19 04:40] LABS: Albumin 2.3 g/dL (3.4-5.0); Potassium 4.1 mmol/L (3.5-5.1)
[2021-05-19 04:44] LABS: BUN/Creatinine Ratio 6.2; Bilirubin, Total 0.4 mg/dL (0.2-1.0); Total Protein 7.2 g/dL (6.4-8.2)
[2021-05-19 04:49] LABS: Basophils # (auto) 0 10 ^3/uL (0-0.2); Basophils % (auto) 0.3 % (0.0-2.0); Eosinophils # (auto) 0 10 ^3/uL (0-0.8); Eosinophils % (auto) 0.1 % (0.0-7.0); Hematocrit 40.8 % (36.0-46.0); Hemoglobin 13.9 g/dL (12.2-16.2); Lymphocytes # (auto) 0.3 10 ^3/uL (0.4-5.4); Lymphocytes % (auto) 2.8 % (10.0-50.0); Mean Corpuscular Hemoglobin 30.3 pg (28.0-32.0); Mean Corpuscular Hgb Conc. 34.1 g/dL (32.0-36.0); Mean Corpuscular Volume 88.9 fL (80.0-100.0); Monocytes # (auto) 1.1 10 ^3/uL (0-1.3); Monocytes % (auto) 9.5 % (0.0-12.0); Neutrophils % (auto) 87.3 % (37.0-80.0); Nucleated Red Blood Cells % 0.1 %; Red Blood Cells 4.59 10^6/uL (4.0-5.20); Red Cell Distribution Width 15.8 % (11.8-14.3); White Blood Cell 11.4 10^3/uL (4.4-10.8)
[2021-05-19] MEDS: MORPHINE SULFATE INJECTION 2 MG/ML SYRG IV PRN (06:27)
[2021-05-19] MEDS: BUDESONIDE (INHALATION) 0.5 MG/2 ML NEB NEB SCH ×2 (06:46→17:54)
[2021-05-19] MEDS: InsuLIN REG 1unit/0.01ml Soln (100units/ml) SC SCH ×4 (07:00→22:00)
[2021-05-19] MEDS: ACCU-CHEK COMFORT CURVE STRIP VI SCH ×4 (07:27→22:00)
[2021-05-19] MEDS ORDERED: BISACODYL 10 MG RECT SUPP PR PRN (10:00)
[2021-05-19] MEDS ORDERED: BISACODYL 5 MG EC TAB PO ONE (10:30)
[2021-05-19] MEDS: LINEZOLID 600MG/300ML 300 ML IV SCH ×2 (11:22→22:00)
[2021-05-19] MEDS: ENOXAPARIN SOD 30 MG/0.3 ML SYRINGE SC SCH (11:24)
[2021-05-19] MEDS: BUMETANIDE INJECTION 25 MG in GIVE UN-DILUTED 0 ML IV SCH (11:25)
[2021-05-19] MEDS: SODIUM CHLOR 0.9% PF (SALINE LOCK) 10ML VIAL/SYR IV SCH ×2 (11:26→23:03)
[2021-05-19] MEDS: CEFEPIME 1 GM in SODIUM CHL 0.9% 50 ML IV SCH (13:25)
[2021-05-19] MEDS: BUMETANIDE INJECTION 12.5 MG in GIVE UN-DILUTED 0 ML IV SCH (13:30)
[2021-05-19] MEDS ORDERED: amLODIPine BESYLATE 5 MG TAB PO ONE (14:00)
[2021-05-19] MEDS: NOREPINEPHRINE 8 MG/250ML KIT 250 ML IV SCH (19:30)
[2021-05-19] MEDS: BISACODYL 5 MG EC TAB PO SCH (22:00)
[2021-05-20] VITALS (30 sets, daily range): BP systolic 94–164; BP diastolic 24–66
[2021-05-20] MEDS: IPRATROPIUM BROM 0.5 MG/2.5ML INH SOL NEB SCH ×4 (00:03→18:50)
[2021-05-20] MEDS: LEVALBUTEROL HCL 1.25 MG/3 ML NEB NEB SCH ×4 (00:04→18:49)
[2021-05-20 04:45] LABS: Basophils # (auto) 0.1 10 ^3/uL (0-0.2); Basophils % (auto) 0.7 % (0.0-2.0); Eosinophils # (auto) 0 10 ^3/uL (0-0.8); Eosinophils % (auto) 0.3 % (0.0-7.0); Hematocrit 39.5 % (36.0-46.0); Hemoglobin 13.6 g/dL (12.2-16.2); Lymphocytes # (auto) 0.5 10 ^3/uL (0.4-5.4); Lymphocytes % (auto) 4.5 % (10.0-50.0); Mean Corpuscular Hgb Conc. 34.5 g/dL (32.0-36.0); Mean Corpuscular Volume 89.8 fL (80.0-100.0); Monocytes # (auto) 1.1 10 ^3/uL (0-1.3); Monocytes % (auto) 10.7 % (0.0-12.0); Neutrophils # (auto) 8.7 10 ^3/uL (1.6-8.6); Neutrophils % (auto) 83.8 % (37.0-80.0); Nucleated Red Blood Cells % 0.1 %; Red Cell Distribution Width 16.3 % (11.8-14.3); White Blood Cell 10.3 10^3/uL (4.4-10.8)
[2021-05-20 05:06] LABS: Calcium 7.9 mg/dL (8.5-10.1)
[2021-05-20 05:08] LABS: BUN/Creatinine Ratio 6.4
[2021-05-20] MEDS: BUDESONIDE (INHALATION) 0.5 MG/2 ML NEB NEB SCH ×2 (06:26→18:49)
[2021-05-20] MEDS: ACCU-CHEK COMFORT CURVE STRIP VI SCH ×4 (06:38→21:58)
[2021-05-20] MEDS: InsuLIN REG 1unit/0.01ml Soln (100units/ml) SC SCH ×4 (06:41→22:00)
[2021-05-20] MEDS ORDERED: SODIUM CHL 0.9% 1000 ML BAG XX ONE (07:00)
[2021-05-20] MEDS: HYDROcodone-ACET 5/325MG TAB PO PRN ×2 (08:02→11:43)
[2021-05-20] MEDS: ENOXAPARIN SOD 30 MG/0.3 ML SYRINGE SC SCH (09:56)
[2021-05-20] MEDS: BISACODYL 5 MG EC TAB PO SCH ×2 (09:57→21:58)
[2021-05-20] MEDS: LINEZOLID 600MG/300ML 300 ML IV SCH ×2 (09:57→21:53)
[2021-05-20] MEDS: SODIUM CHLOR 0.9% PF (SALINE LOCK) 10ML VIAL/SYR IV SCH ×2 (09:57→21:53)
[2021-05-20] MEDS ORDERED: amLODIPine BESYLATE 5 MG TAB PO SCH (10:00)
[2021-05-20] MEDS: CEFEPIME 1 GM in SODIUM CHL 0.9% 50 ML IV SCH (10:00)
[2021-05-20] MEDS: NOREPINEPHRINE 8 MG/250ML KIT 250 ML IV SCH (13:30)
[2021-05-20 14:42] LABS: Hepatitis A Ab IgM Negative; Hepatitis B Core IgM Negative; Hepatitis B Surface Antigen Negative (Negative); Hepatitis C Antibody Negative (Negative)
[2021-05-20] MEDS ORDERED: ALBUMIN 25% 200 ML IV ONE (14:43)
[2021-05-21] MEDS: HYDROcodone-ACET 5/325MG TAB PO PRN ×4 (00:06→23:15)
[2021-05-21] MEDS: IPRATROPIUM BROM 0.5 MG/2.5ML INH SOL NEB SCH ×4 (00:59→18:51)
[2021-05-21] MEDS: LEVALBUTEROL HCL 1.25 MG/3 ML NEB NEB SCH ×4 (01:00→18:51)
[2021-05-21 04:52] VITALS: BP 129/68
[2021-05-21 06:07] LABS: Basophils # (auto) 0.1 10 ^3/uL (0-0.2); Basophils % (auto) 1.1 % (0.0-2.0); Eosinophils # (auto) 0.1 10 ^3/uL (0-0.8); Eosinophils % (auto) 0.5 % (0.0-7.0); Hematocrit 37.7 % (36.0-46.0); Hemoglobin 12.7 g/dL (12.2-16.2); Lymphocytes # (auto) 0.6 10 ^3/uL (0.4-5.4); Lymphocytes % (auto) 4.6 % (10.0-50.0); Mean Corpuscular Hemoglobin 30.4 pg (28.0-32.0); Mean Corpuscular Hgb Conc. 33.6 g/dL (32.0-36.0); Mean Corpuscular Volume 90.4 fL (80.0-100.0); Monocytes # (auto) 1.4 10 ^3/uL (0-1.3); Monocytes % (auto) 10.9 % (0.0-12.0); Neutrophils # (auto) 10.3 10 ^3/uL (1.6-8.6); Neutrophils % (auto) 82.9 % (37.0-80.0); Nucleated Red Blood Cells % 0.1 %; Red Blood Cells 4.17 10^6/uL (4.0-5.20); Red Cell Distribution Width 16.3 % (11.8-14.3); White Blood Cell 12.5 10^3/uL (4.4-10.8)
[2021-05-21 06:13] LABS: Calcium 8.7 mg/dL (8.5-10.1); Potassium 3.8 mmol/L (3.5-5.1)
[2021-05-21 06:16] LABS: BUN/Creatinine Ratio 5.9
[2021-05-21] MEDS: ACCU-CHEK COMFORT CURVE STRIP VI SCH ×4 (06:29→21:45)
[2021-05-21] MEDS: InsuLIN REG 1unit/0.01ml Soln (100units/ml) SC SCH ×4 (06:30→21:45)
[2021-05-21] MEDS: BUDESONIDE (INHALATION) 0.5 MG/2 ML NEB NEB SCH ×2 (06:43→18:51)
[2021-05-21 09:00] VITALS: BP 104/65
[2021-05-21] MEDS ORDERED: amLODIPine BESYLATE 5 MG TAB PO SCH (10:00)
[2021-05-21] MEDS: CEFEPIME 1 GM in SODIUM CHL 0.9% 50 ML IV SCH (10:04)
[2021-05-21] MEDS: LINEZOLID 600MG/300ML 300 ML IV SCH ×2 (10:04→20:48)
[2021-05-21] MEDS: BISACODYL 5 MG EC TAB PO SCH ×2 (10:05→20:59)
[2021-05-21] MEDS: SODIUM CHLOR 0.9% PF (SALINE LOCK) 10ML VIAL/SYR IV SCH ×2 (10:05→20:46)
[2021-05-21] MEDS: PANTOPRAZOLE 40 MG/10 ML VIAL INJ IV SCH (10:05)
[2021-05-21] MEDS: ENOXAPARIN SOD 30 MG/0.3 ML SYRINGE SC SCH (10:06)
[2021-05-21 12:42] VITALS: BP 137/52
[2021-05-21] MEDS: SEVELAMER 800 MG TAB PO SCH ×3 (12:45→18:15)
[2021-05-21 16:44] VITALS: BP 133/55
[2021-05-21 21:46] VITALS: BP 143/62
[2021-05-22] MEDS: HYDROcodone-ACET 5/325MG TAB PO PRN (03:31)
[2021-05-22] MEDS: IPRATROPIUM BROM 0.5 MG/2.5ML INH SOL NEB SCH ×4 (03:41→18:51)
[2021-05-22] MEDS: LEVALBUTEROL HCL 1.25 MG/3 ML NEB NEB SCH ×4 (03:41→18:51)
[2021-05-22 05:00] VITALS: BP 147/54
[2021-05-22] MEDS: InsuLIN REG 1unit/0.01ml Soln (100units/ml) SC SCH ×4 (06:39→22:00)
[2021-05-22] MEDS: ACCU-CHEK COMFORT CURVE STRIP VI SCH ×4 (06:39→21:35)
[2021-05-22] MEDS: BUDESONIDE (INHALATION) 0.5 MG/2 ML NEB NEB SCH ×2 (06:54→18:51)
[2021-05-22] MEDS ORDERED: SODIUM CHL 0.9% 1000 ML BAG XX ONE (07:00)
[2021-05-22] MEDS: MORPHINE SULFATE INJECTION 2 MG/ML SYRG IV PRN ×2 (08:18→22:01)
[2021-05-22 09:00] VITALS: BP 153/83
[2021-05-22] MEDS: SEVELAMER 800 MG TAB PO SCH ×3 (09:12→18:45)
[2021-05-22] MEDS: CEFEPIME 1 GM in SODIUM CHL 0.9% 50 ML IV SCH (09:12)
[2021-05-22] MEDS: BISACODYL 5 MG EC TAB PO SCH ×2 (09:13→21:35)
[2021-05-22] MEDS: PANTOPRAZOLE 40 MG/10 ML VIAL INJ IV SCH (09:13)
[2021-05-22] MEDS: SODIUM CHLOR 0.9% PF (SALINE LOCK) 10ML VIAL/SYR IV SCH ×2 (09:13→21:34)
[2021-05-22] MEDS: ENOXAPARIN SOD 30 MG/0.3 ML SYRINGE SC SCH (09:13)
[2021-05-22] MEDS: LINEZOLID 600MG/300ML 300 ML IV SCH ×2 (10:00→21:34)
[2021-05-22] MEDS ORDERED: LIDOCAINE 2%HCL (LOCAL ANESTH.) INJ 20ML MDV ONE (12:00)
[2021-05-22] MEDS ORDERED: fentaNYL CITRATE 100 MCG/2 ML VL ONE (12:08)
[2021-05-22] MEDS ORDERED: MIDAZOLAM HCL 2MG/2ML 2ml VIAL (1mg/ml) ONE (12:08)
[2021-05-22 12:09] LABS: INR 1.03 (0.9-1.15); Partial Thromboplastin Time 27.8 sec (23.6-33.0)
[2021-05-22] MEDS ORDERED: HEPARIN SODIUM (PORCINE) 5000 UNITS/ML 1ML VIAL ONE (12:48)
[2021-05-22 14:25] VITALS: BP 127/65
[2021-05-22] MEDS: MEROPENEM 500MG IVPB 50 ML IV SCH (19:31)
[2021-05-22] MEDS: methylPREDNISolone SOD SUCC 40 MG/ML VL IV SCH (21:34)
[2021-05-22 22:00] VITALS: BP 148/52
[2021-05-23] MEDS: LEVALBUTEROL HCL 1.25 MG/3 ML NEB NEB SCH ×4 (00:42→19:14)
[2021-05-23] MEDS: IPRATROPIUM BROM 0.5 MG/2.5ML INH SOL NEB SCH ×4 (00:42→19:14)
[2021-05-23 05:55] VITALS: BP 146/52
[2021-05-23] MEDS: methylPREDNISolone SOD SUCC 40 MG/ML VL IV SCH ×3 (06:01→21:01)
[2021-05-23] MEDS: MORPHINE SULFATE INJECTION 2 MG/ML SYRG IV PRN ×3 (06:05→23:15)
[2021-05-23] MEDS: BUDESONIDE (INHALATION) 0.5 MG/2 ML NEB NEB SCH ×2 (06:12→19:15)
[2021-05-23 06:16] LABS: Hematocrit 34.2 % (36.0-46.0); Hemoglobin 11.5 g/dL (12.2-16.2); Mean Corpuscular Hemoglobin 30.6 pg (28.0-32.0); Mean Corpuscular Hgb Conc. 33.6 g/dL (32.0-36.0); Mean Corpuscular Volume 90.9 fL (80.0-100.0); Red Blood Cells 3.76 10^6/uL (4.0-5.20); Red Cell Distribution Width 16.6 % (11.8-14.3); White Blood Cell 11.3 10^3/uL (4.4-10.8)
[2021-05-23] MEDS: ACCU-CHEK COMFORT CURVE STRIP VI SCH ×4 (06:18→21:34)
[2021-05-23 06:20] LABS: BUN/Creatinine Ratio 7.2; Calcium 8.5 mg/dL (8.5-10.1); Potassium 5.2 mmol/L (3.5-5.1)
[2021-05-23] MEDS: InsuLIN REG 1unit/0.01ml Soln (100units/ml) SC SCH ×4 (06:21→21:34)
[2021-05-23 06:25] LABS: Basophils % (manual) 0 (0.0-2.0); Blast Cells 0; Eosinophils % (manual) 0 (0-7); Metamyelocytes % 0; Monocytes % (manual) 0 (0-12); Myelocytes % 0; Promyelocytes % 0; Reactive Lymphocytes 0
[2021-05-23 08:36] LABS: Band Neutrophils % (manual) 11; Lymphocytes % (manual) 1 (10.0-50.0)
[2021-05-23] MEDS: BISACODYL 5 MG EC TAB PO SCH ×2 (08:48→21:02)
[2021-05-23] MEDS: PANTOPRAZOLE 40 MG/10 ML VIAL INJ IV SCH (08:48)
[2021-05-23] MEDS: SEVELAMER 800 MG TAB PO SCH ×3 (08:48→16:59)
[2021-05-23] MEDS: SODIUM CHLOR 0.9% PF (SALINE LOCK) 10ML VIAL/SYR IV SCH ×2 (08:48→21:01)
[2021-05-23] MEDS: LINEZOLID 600MG/300ML 300 ML IV SCH ×2 (08:48→21:02)
[2021-05-23] MEDS: ENOXAPARIN SOD 30 MG/0.3 ML SYRINGE SC SCH (08:49)
[2021-05-23 09:00] VITALS: BP 142/74
[2021-05-23 13:00] VITALS: BP 141/66
[2021-05-23] MEDS: MEROPENEM 500MG IVPB 50 ML IV SCH (16:58)
[2021-05-23 17:00] VITALS: BP 139/68
[2021-05-23] MEDS: HYDROcodone-ACET 5/325MG TAB PO PRN (18:43)
[2021-05-23] MEDS ORDERED: BACLOFEN 10 MG TAB PO ONE (19:45)
[2021-05-23] MEDS: LABETALOL HCL 5 MG/ML 4ML SYRINGE IV PRN ×2 (21:03→23:57)
[2021-05-24] MEDS: LEVALBUTEROL HCL 1.25 MG/3 ML NEB NEB SCH ×4 (01:34→18:36)
[2021-05-24] MEDS: IPRATROPIUM BROM 0.5 MG/2.5ML INH SOL NEB SCH ×4 (01:34→18:36)
[2021-05-24 05:00] VITALS: BP 101/68
[2021-05-24] MEDS: methylPREDNISolone SOD SUCC 40 MG/ML VL IV SCH ×3 (05:09→21:41)
[2021-05-24] MEDS: MORPHINE SULFATE INJECTION 2 MG/ML SYRG IV PRN ×4 (05:09→22:50)
[2021-05-24] MEDS: ACCU-CHEK COMFORT CURVE STRIP VI SCH ×4 (06:19→21:41)
[2021-05-24] MEDS: InsuLIN REG 1unit/0.01ml Soln (100units/ml) SC SCH ×4 (06:19→21:41)
[2021-05-24] MEDS: BUDESONIDE (INHALATION) 0.5 MG/2 ML NEB NEB SCH (06:27)
[2021-05-24] MEDS ORDERED: SODIUM CHL 0.9% 1000 ML BAG XX ONE (07:00)
[2021-05-24] MEDS: SEVELAMER 800 MG TAB PO SCH ×3 (08:00→18:00)
[2021-05-24 09:00] VITALS: BP 162/75
[2021-05-24 09:16] LABS: Basophils # (auto) 0 10 ^3/uL (0-0.2); Basophils % (auto) 0.1 % (0.0-2.0); Eosinophils # (auto) 0 10 ^3/uL (0-0.8); Eosinophils % (auto) 0.1 % (0.0-7.0); Hematocrit 38.7 % (36.0-46.0); Lymphocytes # (auto) 0.3 10 ^3/uL (0.4-5.4); Lymphocytes % (auto) 2.5 % (10.0-50.0); Mean Corpuscular Hemoglobin 30.8 pg (28.0-32.0); Mean Corpuscular Hgb Conc. 33.6 g/dL (32.0-36.0); Mean Corpuscular Volume 91.5 fL (80.0-100.0); Monocytes # (auto) 0.4 10 ^3/uL (0-1.3); Monocytes % (auto) 3.9 % (0.0-12.0); Neutrophils # (auto) 9.5 10 ^3/uL (1.6-8.6); Neutrophils % (auto) 93.4 % (37.0-80.0); Nucleated Red Blood Cells % 0.3 %; Red Blood Cells 4.23 10^6/uL (4.0-5.20); Red Cell Distribution Width 15.9 % (11.8-14.3); White Blood Cell 10.2 10^3/uL (4.4-10.8)
[2021-05-24 09:43] LABS: BUN/Creatinine Ratio 8.6; Calcium 8.9 mg/dL (8.5-10.1); Potassium 5.4 mmol/L (3.5-5.1)
[2021-05-24] MEDS: LINEZOLID 600MG/300ML 300 ML IV SCH ×2 (09:47→21:41)
[2021-05-24] MEDS: BISACODYL 5 MG EC TAB PO SCH ×2 (09:47→21:41)
[2021-05-24] MEDS: ENOXAPARIN SOD 30 MG/0.3 ML SYRINGE SC SCH (09:47)
[2021-05-24] MEDS: PANTOPRAZOLE 40 MG/10 ML VIAL INJ IV SCH (09:47)
[2021-05-24] MEDS: SODIUM CHLOR 0.9% PF (SALINE LOCK) 10ML VIAL/SYR IV SCH ×2 (09:49→21:40)
[2021-05-24] MEDS ORDERED: LACTULOSE 20Gm/30ML SOLN PO PRN (11:30)
[2021-05-24 12:52] VITALS: BP 156/57
[2021-05-24 13:00] VITALS: BP 164/80
[2021-05-24] MEDS ORDERED: BACLOFEN 10 MG TAB PO ONE (13:30)
[2021-05-24] MEDS: FLUCONAZOLE 200MG/100ML 100 ML IV SCH (14:19)
[2021-05-24] MEDS: LIDOCAINE 5% TOPICAL PATCH TOP SCH (14:37)
[2021-05-24] MEDS: MEROPENEM 500MG IVPB 50 ML IV SCH (18:12)
[2021-05-24] MEDS: BACLOFEN 10 MG TAB PO SCH (18:13)
[2021-05-24] MEDS: LABETALOL HCL 5 MG/ML 4ML SYRINGE IV PRN (18:14)
[2021-05-24 22:00] VITALS: BP 166/78
[2021-05-24 23:18] VITALS: BP 166/78
[2021-05-25] MEDS: IPRATROPIUM BROM 0.5 MG/2.5ML INH SOL NEB SCH ×5 (00:17→23:48)
[2021-05-25] MEDS: LEVALBUTEROL HCL 1.25 MG/3 ML NEB NEB SCH ×5 (00:17→23:48)
[2021-05-25] MEDS: LABETALOL HCL 5 MG/ML 4ML SYRINGE IV PRN ×4 (00:37→23:27)
[2021-05-25 05:00] VITALS: BP 166/89
[2021-05-25] MEDS: BUDESONIDE (INHALATION) 0.5 MG/2 ML NEB NEB SCH ×2 (06:41→23:10)
[2021-05-25] MEDS: ACCU-CHEK COMFORT CURVE STRIP VI SCH ×4 (06:43→21:57)
[2021-05-25] MEDS: InsuLIN REG 1unit/0.01ml Soln (100units/ml) SC SCH ×5 (06:43→21:57)
[2021-05-25] MEDS: methylPREDNISolone SOD SUCC 40 MG/ML VL IV SCH ×3 (06:43→21:57)
[2021-05-25 08:00] VITALS: BP 173/84
[2021-05-25] MEDS: BACLOFEN 10 MG TAB PO SCH (08:00)
[2021-05-25] MEDS: SEVELAMER 800 MG TAB PO SCH ×2 (08:00→11:43)
[2021-05-25] MEDS: LIDOCAINE 5% TOPICAL PATCH TOP SCH (09:12)
[2021-05-25] MEDS: PANTOPRAZOLE 40 MG/10 ML VIAL INJ IV SCH (09:12)
[2021-05-25] MEDS: LINEZOLID 600MG/300ML 300 ML IV SCH ×2 (09:13→21:57)
[2021-05-25] MEDS: FLUCONAZOLE 200MG/100ML 100 ML IV SCH ×2 (09:14→11:42)
[2021-05-25] MEDS: MORPHINE SULFATE INJECTION 2 MG/ML SYRG IV PRN ×2 (09:15→23:27)
[2021-05-25] MEDS: SODIUM CHLOR 0.9% PF (SALINE LOCK) 10ML VIAL/SYR IV SCH ×2 (09:15→21:57)
[2021-05-25] MEDS: ENOXAPARIN SOD 30 MG/0.3 ML SYRINGE SC SCH (09:16)
[2021-05-25] MEDS: BISACODYL 5 MG EC TAB PO SCH ×2 (09:19→21:57)
[2021-05-25 11:02] LABS: Basophils # (auto) 0 10 ^3/uL (0-0.2); Basophils % (auto) 0.1 % (0.0-2.0); Eosinophils # (auto) 0 10 ^3/uL (0-0.8); Hematocrit 38.2 % (36.0-46.0); Hemoglobin 12.7 g/dL (12.2-16.2); Lymphocytes # (auto) 0.2 10 ^3/uL (0.4-5.4); Lymphocytes % (auto) 1.9 % (10.0-50.0); Mean Corpuscular Hemoglobin 30.2 pg (28.0-32.0); Mean Corpuscular Hgb Conc. 33.3 g/dL (32.0-36.0); Mean Corpuscular Volume 90.6 fL (80.0-100.0); Monocytes # (auto) 0.6 10 ^3/uL (0-1.3); Neutrophils # (auto) 8.8 10 ^3/uL (1.6-8.6); Nucleated Red Blood Cells % 0.4 %; Red Blood Cells 4.22 10^6/uL (4.0-5.20); Red Cell Distribution Width 16.1 % (11.8-14.3); White Blood Cell 9.6 10^3/uL (4.4-10.8)
[2021-05-25 11:08] LABS: Potassium 5.2 mmol/L (3.5-5.1)
[2021-05-25 11:15] LABS: BUN/Creatinine Ratio 8.2; Bilirubin, Total 0.4 mg/dL (0.2-1.0); Calcium 8.6 mg/dL (8.5-10.1); Total Protein 7.5 g/dL (6.4-8.2)
[2021-05-25 13:00] VITALS: BP 151/76
[2021-05-25] MEDS ORDERED: SODIUM CHLORIDE 0.9% 500 ML IV ONE (14:15)
[2021-05-25] MEDS ORDERED: SODIUM CHLORIDE 0.9% 1,000 ML IV ONE (14:15)
[2021-05-25 17:00] VITALS: BP 143/51
[2021-05-25] MEDS: MEROPENEM 500MG IVPB 50 ML IV SCH (17:27)
[2021-05-25 22:00] VITALS: BP 172/89
[2021-05-26 05:00] VITALS: BP 149/68
[2021-05-26] MEDS: ACCU-CHEK COMFORT CURVE STRIP VI SCH ×4 (06:16→22:11)
[2021-05-26] MEDS: methylPREDNISolone SOD SUCC 40 MG/ML VL IV SCH ×3 (06:16→22:11)
[2021-05-26] MEDS: InsuLIN REG 1unit/0.01ml Soln (100units/ml) SC SCH ×4 (06:19→22:12)
[2021-05-26] MEDS: IPRATROPIUM BROM 0.5 MG/2.5ML INH SOL NEB SCH ×3 (06:31→19:48)
[2021-05-26] MEDS: LEVALBUTEROL HCL 1.25 MG/3 ML NEB NEB SCH ×3 (06:31→19:48)
[2021-05-26] MEDS: BUDESONIDE (INHALATION) 0.5 MG/2 ML NEB NEB SCH ×2 (06:31→19:48)
[2021-05-26 07:43] LABS: Basophils # (auto) 0 10 ^3/uL (0-0.2); Basophils % (auto) 0.2 % (0.0-2.0); Eosinophils # (auto) 0.1 10 ^3/uL (0-0.8); Eosinophils % (auto) 0.5 % (0.0-7.0); Hematocrit 39.1 % (36.0-46.0); Lymphocytes # (auto) 0.3 10 ^3/uL (0.4-5.4); Lymphocytes % (auto) 2.1 % (10.0-50.0); Mean Corpuscular Hemoglobin 30.3 pg (28.0-32.0); Mean Corpuscular Hgb Conc. 33.3 g/dL (32.0-36.0); Mean Corpuscular Volume 91.2 fL (80.0-100.0); Monocytes # (auto) 0.5 10 ^3/uL (0-1.3); Monocytes % (auto) 4.2 % (0.0-12.0); Neutrophils # (auto) 11.4 10 ^3/uL (1.6-8.6); Nucleated Red Blood Cells % 0.4 %; Red Blood Cells 4.29 10^6/uL (4.0-5.20); White Blood Cell 12.3 10^3/uL (4.4-10.8)
[2021-05-26 08:01] LABS: Albumin 3.1 g/dL (3.4-5.0); BUN/Creatinine Ratio 9.5; Calcium 8.4 mg/dL (8.5-10.1); Potassium 5.2 mmol/L (3.5-5.1)
[2021-05-26 08:04] LABS: Bilirubin, Total 0.4 mg/dL (0.2-1.0); Total Protein 7.4 g/dL (6.4-8.2)
[2021-05-26 09:00] VITALS: BP 105/62
[2021-05-26] MEDS: SODIUM CHLOR 0.9% PF (SALINE LOCK) 10ML VIAL/SYR IV SCH ×2 (10:00→22:11)
[2021-05-26] MEDS: FLUCONAZOLE 200MG/100ML 100 ML IV SCH ×2 (10:30→14:01)
[2021-05-26] MEDS: LINEZOLID 600MG/300ML 300 ML IV SCH ×2 (10:31→22:11)
[2021-05-26] MEDS: MORPHINE SULFATE INJECTION 2 MG/ML SYRG IV PRN (10:31)
[2021-05-26] MEDS: PANTOPRAZOLE 40 MG/10 ML VIAL INJ IV SCH (10:31)
[2021-05-26] MEDS: BISACODYL 5 MG EC TAB PO SCH ×2 (10:31→22:11)
[2021-05-26] MEDS: ENOXAPARIN SOD 30 MG/0.3 ML SYRINGE SC SCH (10:33)
[2021-05-26] MEDS: LIDOCAINE 5% TOPICAL PATCH TOP SCH (11:14)
[2021-05-26 13:00] VITALS: BP 98/76
[2021-05-26] MEDS: MEROPENEM 500MG IVPB 50 ML IV SCH (17:41)
[2021-05-26 21:07] VITALS: BP 140/81
[2021-05-27] VITALS (7 sets, daily range): BP systolic 129–183; BP diastolic 62–108
[2021-05-27] MEDS: LABETALOL HCL 5 MG/ML 4ML SYRINGE IV PRN ×3 (05:05→21:41)
[2021-05-27] MEDS: MORPHINE SULFATE INJECTION 2 MG/ML SYRG IV PRN ×3 (05:05→22:50)
[2021-05-27] MEDS: ACCU-CHEK COMFORT CURVE STRIP VI SCH ×4 (06:27→21:41)
[2021-05-27] MEDS: methylPREDNISolone SOD SUCC 40 MG/ML VL IV SCH (06:27)
[2021-05-27] MEDS: InsuLIN REG 1unit/0.01ml Soln (100units/ml) SC SCH ×4 (06:27→21:40)
[2021-05-27 06:42] LABS: Basophils # (auto) 0 10 ^3/uL (0-0.2); Basophils % (auto) 0.4 % (0.0-2.0); Eosinophils # (auto) 0 10 ^3/uL (0-0.8); Eosinophils % (auto) 0.1 % (0.0-7.0); Hematocrit 34.8 % (36.0-46.0); Hemoglobin 11.5 g/dL (12.2-16.2); Lymphocytes # (auto) 0.2 10 ^3/uL (0.4-5.4); Lymphocytes % (auto) 3.1 % (10.0-50.0); Monocytes # (auto) 0.3 10 ^3/uL (0-1.3); Monocytes % (auto) 4.4 % (0.0-12.0); Neutrophils # (auto) 6.5 10 ^3/uL (1.6-8.6); Nucleated Red Blood Cells % 0.5 %; Red Blood Cells 3.83 10^6/uL (4.0-5.20); Red Cell Distribution Width 16.1 % (11.8-14.3); White Blood Cell 7.1 10^3/uL (4.4-10.8)
[2021-05-27 07:02] LABS: Albumin 2.6 g/dL (3.4-5.0); BUN/Creatinine Ratio 10.7; Bilirubin, Total 0.5 mg/dL (0.2-1.0); Calcium 8.4 mg/dL (8.5-10.1); Total Protein 6.5 g/dL (6.4-8.2)
[2021-05-27 07:06] LABS: Potassium 5.7 mmol/L (3.5-5.1)
[2021-05-27] MEDS: IPRATROPIUM BROM 0.5 MG/2.5ML INH SOL NEB SCH ×4 (07:40→19:08)
[2021-05-27] MEDS: LEVALBUTEROL HCL 1.25 MG/3 ML NEB NEB SCH ×4 (07:40→19:08)
[2021-05-27] MEDS: BUDESONIDE (INHALATION) 0.5 MG/2 ML NEB NEB SCH ×2 (07:40→19:08)
[2021-05-27] MEDS ORDERED: SODIUM CHL 0.9% 1000 ML BAG XX ONE (09:00)
[2021-05-27] MEDS ORDERED: InsuLIN REG 1unit/0.01ml Soln (100units/ml) IV ONE (09:00)
[2021-05-27] MEDS ORDERED: DEXTROSE (50%) 50ML SYRG IV ONE (09:00)
[2021-05-27] MEDS: LINEZOLID 600MG/300ML 300 ML IV SCH (09:10)
[2021-05-27] MEDS: LIDOCAINE 5% TOPICAL PATCH TOP SCH (09:10)
[2021-05-27] MEDS: BISACODYL 5 MG EC TAB PO SCH ×2 (09:11→21:37)
[2021-05-27] MEDS: FLUCONAZOLE 200MG/100ML 100 ML IV SCH ×2 (09:11→10:32)
[2021-05-27] MEDS: PANTOPRAZOLE 40 MG/10 ML VIAL INJ IV SCH (09:12)
[2021-05-27] MEDS: ENOXAPARIN SOD 30 MG/0.3 ML SYRINGE SC SCH (09:13)
[2021-05-27] MEDS: SODIUM CHLOR 0.9% PF (SALINE LOCK) 10ML VIAL/SYR IV SCH ×2 (09:54→21:38)
[2021-05-27] MEDS ORDERED: LACTULOSE 20Gm/30ML SOLN PO PRN (12:45)
[2021-05-27] MEDS: HYDROcodone-ACET 5/325MG TAB PO PRN ×2 (14:30→20:19)
[2021-05-27] MEDS: FUROSEMIDE 100 MG/10ML VIAL IV SCH (15:01)
[2021-05-27] MEDS: MEROPENEM 500MG IVPB 50 ML IV SCH (17:29)
[2021-05-28] MEDS: LEVALBUTEROL HCL 1.25 MG/3 ML NEB NEB SCH ×5 (00:15→23:48)
[2021-05-28] MEDS: IPRATROPIUM BROM 0.5 MG/2.5ML INH SOL NEB SCH ×5 (00:15→23:48)
[2021-05-28] MEDS: LABETALOL HCL 5 MG/ML 4ML SYRINGE IV PRN (01:39)
[2021-05-28] MEDS: HYDROcodone-ACET 5/325MG TAB PO PRN ×2 (03:39→20:58)
[2021-05-28] MEDS: LORazepam 0.5 MG TAB PO PRN (03:39)
[2021-05-28 05:00] VITALS: BP 149/69
[2021-05-28 06:02] LABS: Basophils # (auto) 0 10 ^3/uL (0-0.2); Basophils % (auto) 0.2 % (0.0-2.0); Eosinophils # (auto) 0 10 ^3/uL (0-0.8); Eosinophils % (auto) 0.1 % (0.0-7.0); Hemoglobin 12.2 g/dL (12.2-16.2); Lymphocytes # (auto) 0.6 10 ^3/uL (0.4-5.4); Mean Corpuscular Hemoglobin 30.7 pg (28.0-32.0); Mean Corpuscular Hgb Conc. 33.8 g/dL (32.0-36.0); Mean Corpuscular Volume 90.7 fL (80.0-100.0); Monocytes # (auto) 1.2 10 ^3/uL (0-1.3); Monocytes % (auto) 11.2 % (0.0-12.0); Neutrophils # (auto) 9.3 10 ^3/uL (1.6-8.6); Neutrophils % (auto) 83.5 % (37.0-80.0); Nucleated Red Blood Cells % 0.3 %; Red Blood Cells 3.96 10^6/uL (4.0-5.20); Red Cell Distribution Width 16.3 % (11.8-14.3); White Blood Cell 11.1 10^3/uL (4.4-10.8)
[2021-05-28] MEDS: InsuLIN REG 1unit/0.01ml Soln (100units/ml) SC SCH ×4 (06:18→20:59)
[2021-05-28] MEDS: ACCU-CHEK COMFORT CURVE STRIP VI SCH ×4 (06:18→21:04)
[2021-05-28 06:21] LABS: Potassium 5.1 mmol/L (3.5-5.1)
[2021-05-28 06:35] LABS: BUN/Creatinine Ratio 10.7; Calcium 8.3 mg/dL (8.5-10.1)
[2021-05-28] MEDS: BUDESONIDE (INHALATION) 0.5 MG/2 ML NEB NEB SCH ×2 (07:04→19:35)
[2021-05-28 08:42] VITALS: BP 163/91
[2021-05-28] MEDS: LIDOCAINE 5% TOPICAL PATCH TOP SCH (10:13)
[2021-05-28] MEDS: ENOXAPARIN SOD 30 MG/0.3 ML SYRINGE SC SCH (10:13)
[2021-05-28] MEDS: BISACODYL 5 MG EC TAB PO SCH ×2 (10:13→20:58)
[2021-05-28] MEDS: FLUCONAZOLE 200MG/100ML 100 ML IV SCH ×2 (10:13→11:43)
[2021-05-28] MEDS: FUROSEMIDE 100 MG/10ML VIAL IV SCH (10:14)
[2021-05-28] MEDS: PANTOPRAZOLE 40 MG/10 ML VIAL INJ IV SCH (10:14)
[2021-05-28] MEDS: amLODIPine BESYLATE 5 MG TAB PO SCH (10:14)
[2021-05-28] MEDS: MORPHINE SULFATE INJECTION 2 MG/ML SYRG IV PRN (10:15)
[2021-05-28] MEDS: SODIUM CHLOR 0.9% PF (SALINE LOCK) 10ML VIAL/SYR IV SCH ×2 (11:01→20:58)
[2021-05-28 13:00] VITALS: BP 157/78
[2021-05-28 17:00] VITALS: BP 153/78
[2021-05-28] MEDS: MEROPENEM 500MG IVPB 50 ML IV SCH (17:28)
[2021-05-28] MEDS: cloNIDine HCL 0.1 MG TAB PO SCH (21:04)
[2021-05-28 21:40] VITALS: BP 133/68
[2021-05-29] MEDS: MORPHINE SULFATE INJECTION 2 MG/ML SYRG IV PRN ×4 (01:25→22:52)
[2021-05-29 05:05] VITALS: BP 146/67
[2021-05-29] MEDS: HYDROcodone-ACET 5/325MG TAB PO PRN ×2 (05:16→18:02)
[2021-05-29] MEDS: ACCU-CHEK COMFORT CURVE STRIP VI SCH ×4 (05:38→20:57)
[2021-05-29] MEDS: InsuLIN REG 1unit/0.01ml Soln (100units/ml) SC SCH ×4 (05:39→20:58)
[2021-05-29 05:49] LABS: Potassium 5.4 mmol/L (3.5-5.1)
[2021-05-29 05:55] LABS: BUN/Creatinine Ratio 11.6; Calcium 7.9 mg/dL (8.5-10.1)
[2021-05-29 05:58] LABS: Hematocrit 36.5 % (36.0-46.0); Hemoglobin 11.9 g/dL (12.2-16.2); Mean Corpuscular Hemoglobin 30.1 pg (28.0-32.0); Mean Corpuscular Hgb Conc. 32.7 g/dL (32.0-36.0); Red Blood Cells 3.96 10^6/uL (4.0-5.20); Red Cell Distribution Width 16.4 % (11.8-14.3); White Blood Cell 11.8 10^3/uL (4.4-10.8)
[2021-05-29 06:06] LABS: Basophils % (manual) 0 (0.0-2.0); Blast Cells 0; Eosinophils % (manual) 0 (0-7); Promyelocytes % 0; Reactive Lymphocytes 0
[2021-05-29] MEDS: IPRATROPIUM BROM 0.5 MG/2.5ML INH SOL NEB SCH ×3 (06:54→18:47)
[2021-05-29] MEDS: LEVALBUTEROL HCL 1.25 MG/3 ML NEB NEB SCH ×3 (06:54→18:47)
[2021-05-29] MEDS: BUDESONIDE (INHALATION) 0.5 MG/2 ML NEB NEB SCH (06:54)
[2021-05-29] MEDS ORDERED: SODIUM CHL 0.9% 1000 ML BAG XX ONE (07:00)
[2021-05-29 07:16] LABS: Band Neutrophils % (manual) 1; Lymphocytes % (manual) 12 (10.0-50.0); Metamyelocytes % 1; Monocytes % (manual) 6 (0-12); Myelocytes % 1
[2021-05-29 09:00] VITALS: BP 160/122
[2021-05-29] MEDS: FLUCONAZOLE 200MG/100ML 100 ML IV SCH ×2 (09:30→12:00)
[2021-05-29] MEDS: FUROSEMIDE 100 MG/10ML VIAL IV SCH (09:31)
[2021-05-29] MEDS: PANTOPRAZOLE 40 MG/10 ML VIAL INJ IV SCH (09:32)
[2021-05-29] MEDS: cloNIDine HCL 0.1 MG TAB PO SCH ×2 (09:33→21:00)
[2021-05-29] MEDS: BISACODYL 5 MG EC TAB PO SCH ×2 (09:33→21:00)
[2021-05-29] MEDS: amLODIPine BESYLATE 5 MG TAB PO SCH (09:34)
[2021-05-29] MEDS: ENOXAPARIN SOD 30 MG/0.3 ML SYRINGE SC SCH (09:34)
[2021-05-29] MEDS: SODIUM CHLOR 0.9% PF (SALINE LOCK) 10ML VIAL/SYR IV SCH ×2 (10:00→20:56)
[2021-05-29] MEDS: LIDOCAINE 5% TOPICAL PATCH TOP SCH (12:00)
[2021-05-29 13:00] VITALS: BP 126/70
[2021-05-29 17:00] VITALS: BP 136/91
[2021-05-29] MEDS: Nepro With Carbsteady ButterPecan 8oz Carton PO SCH (18:00)
[2021-05-29] MEDS ORDERED: EPOETIN ALFA-EPBX 10,000 UNIT/1ML VIAL SC ONE (21:00)
[2021-05-29 21:46] VITALS: BP 157/77
[2021-05-30] MEDS: IPRATROPIUM BROM 0.5 MG/2.5ML INH SOL NEB SCH ×4 (00:10→18:26)
[2021-05-30] MEDS: LEVALBUTEROL HCL 1.25 MG/3 ML NEB NEB SCH ×4 (00:10→18:26)
[2021-05-30] MEDS: HYDROcodone-ACET 5/325MG TAB PO PRN (01:17)
[2021-05-30 04:46] VITALS: BP 162/90
[2021-05-30] MEDS: InsuLIN REG 1unit/0.01ml Soln (100units/ml) SC SCH ×4 (05:47→22:28)
[2021-05-30] MEDS: ACCU-CHEK COMFORT CURVE STRIP VI SCH ×4 (05:47→21:38)
[2021-05-30 08:00] VITALS: BP 178/92
[2021-05-30] MEDS: Nepro With Carbsteady ButterPecan 8oz Carton PO SCH ×2 (08:00→18:00)
[2021-05-30] MEDS: cloNIDine HCL 0.1 MG TAB PO SCH ×2 (08:51→21:37)
[2021-05-30] MEDS: amLODIPine BESYLATE 5 MG TAB PO SCH (08:52)
[2021-05-30] MEDS: LORazepam 0.5 MG TAB PO PRN ×2 (08:52→16:32)
[2021-05-30 09:07] VITALS: BP 178/92
[2021-05-30] MEDS: SODIUM CHLOR 0.9% PF (SALINE LOCK) 10ML VIAL/SYR IV SCH ×2 (09:37→21:36)
[2021-05-30] MEDS: FUROSEMIDE 100 MG/10ML VIAL IV SCH (09:56)
[2021-05-30] MEDS: LIDOCAINE 5% TOPICAL PATCH TOP SCH (09:56)
[2021-05-30] MEDS: ENOXAPARIN SOD 30 MG/0.3 ML SYRINGE SC SCH (09:56)
[2021-05-30] MEDS: PANTOPRAZOLE 40 MG/10 ML VIAL INJ IV SCH (09:56)
[2021-05-30] MEDS: BISACODYL 5 MG EC TAB PO SCH ×2 (09:56→21:38)
[2021-05-30] MEDS: FLUCONAZOLE 200MG/100ML 100 ML IV SCH ×2 (10:13→11:44)
[2021-05-30] MEDS: levoFLOXacin 250MG 50 ML IV SCH (10:13)
[2021-05-30 10:36] LABS: Hematocrit 36.8 % (36.0-46.0); Mean Corpuscular Hemoglobin 29.7 pg (28.0-32.0); Mean Corpuscular Hgb Conc. 32.6 g/dL (32.0-36.0); Red Blood Cells 4.05 10^6/uL (4.0-5.20); Red Cell Distribution Width 16.3 % (11.8-14.3); White Blood Cell 18.8 10^3/uL (4.4-10.8)
[2021-05-30 10:41] LABS: Band Neutrophils % (manual) 0; Basophils % (manual) 0 (0.0-2.0); Blast Cells 0; Eosinophils % (manual) 0 (0-7); Myelocytes % 0; Promyelocytes % 0; Reactive Lymphocytes 0
[2021-05-30 11:00] LABS: BUN/Creatinine Ratio 9.9; Calcium 7.6 mg/dL (8.5-10.1); Potassium 5.1 mmol/L (3.5-5.1)
[2021-05-30 11:12] LABS: Lymphocytes % (manual) 6 (10.0-50.0); Metamyelocytes % 1; Monocytes % (manual) 6 (0-12)
[2021-05-30 12:00] VITALS: BP 141/76
[2021-05-30] MEDS ORDERED: CLINDAMYCIN 300MG IV 50 ML IV ONE (12:15)
[2021-05-30 16:45] VITALS: BP 129/87
[2021-05-30 21:00] VITALS: BP 165/68
[2021-05-30] MEDS: CLINDAMYCIN 300MG IV 50 ML IV SCH (21:36)
[2021-05-31 04:41] VITALS: BP 147/81
[2021-05-31] MEDS: LORazepam 0.5 MG TAB PO PRN ×3 (05:24→20:10)
[2021-05-31] MEDS: CLINDAMYCIN 300MG IV 50 ML IV SCH ×3 (05:26→21:44)
[2021-05-31] MEDS: MORPHINE SULFATE INJECTION 2 MG/ML SYRG IV PRN ×4 (05:26→23:57)
[2021-05-31] MEDS: InsuLIN REG 1unit/0.01ml Soln (100units/ml) SC SCH ×4 (06:46→22:24)
[2021-05-31] MEDS: ACCU-CHEK COMFORT CURVE STRIP VI SCH ×4 (06:47→22:24)
[2021-05-31] MEDS ORDERED: SODIUM CHL 0.9% 1000 ML BAG XX ONE (07:00)
[2021-05-31 07:06] LABS: Basophils # (auto) 0 10 ^3/uL (0-0.2); Basophils % (auto) 0.3 % (0.0-2.0); Eosinophils # (auto) 0.1 10 ^3/uL (0-0.8); Hemoglobin 11.3 g/dL (12.2-16.2); Lymphocytes # (auto) 0.9 10 ^3/uL (0.4-5.4); Monocytes # (auto) 1.4 10 ^3/uL (0-1.3); Neutrophils # (auto) 9.9 10 ^3/uL (1.6-8.6); White Blood Cell 12.3 10^3/uL (4.4-10.8)
[2021-05-31 07:09] LABS: Eosinophils % (auto) 0.6 % (0.0-7.0); Mean Corpuscular Hemoglobin 29.8 pg (28.0-32.0); Mean Corpuscular Hgb Conc. 33.4 g/dL (32.0-36.0); Mean Corpuscular Volume 89.1 fL (80.0-100.0); Monocytes % (auto) 11.1 % (0.0-12.0); Nucleated Red Blood Cells % 0.1 %; Red Blood Cells 3.81 10^6/uL (4.0-5.20); Red Cell Distribution Width 15.7 % (11.8-14.3)
[2021-05-31 07:32] LABS: BUN/Creatinine Ratio 9.6; Calcium 8.1 mg/dL (8.5-10.1); Potassium 4.2 mmol/L (3.5-5.1)
[2021-05-31] MEDS: IPRATROPIUM BROM 0.5 MG/2.5ML INH SOL NEB SCH ×3 (07:44→12:00)
[2021-05-31] MEDS: LEVALBUTEROL HCL 1.25 MG/3 ML NEB NEB SCH ×3 (07:44→12:00)
[2021-05-31] MEDS: Nepro With Carbsteady ButterPecan 8oz Carton PO SCH ×2 (08:00→17:49)
[2021-05-31 09:00] VITALS: BP 168/79
[2021-05-31] MEDS: PANTOPRAZOLE 40 MG/10 ML VIAL INJ IV SCH (09:40)
[2021-05-31] MEDS: SODIUM CHLOR 0.9% PF (SALINE LOCK) 10ML VIAL/SYR IV SCH ×2 (09:42→21:44)
[2021-05-31] MEDS: BISACODYL 5 MG EC TAB PO SCH ×2 (09:42→21:44)
[2021-05-31] MEDS: LIDOCAINE 5% TOPICAL PATCH TOP SCH (09:42)
[2021-05-31] MEDS: ENOXAPARIN SOD 30 MG/0.3 ML SYRINGE SC SCH (09:42)
[2021-05-31] MEDS: levoFLOXacin 250MG 50 ML IV SCH (09:43)
[2021-05-31] MEDS ORDERED: FLUCONAZOLE 200MG/100ML 100 ML IV SCH (10:00)
[2021-05-31] MEDS: FUROSEMIDE 100 MG/10ML VIAL IV SCH (10:10)
[2021-05-31] MEDS: cloNIDine HCL 0.1 MG TAB PO SCH ×2 (10:10→22:25)
[2021-05-31] MEDS: amLODIPine BESYLATE 5 MG TAB PO SCH (10:11)
[2021-05-31 13:00] VITALS: BP 131/79
[2021-05-31] MEDS ORDERED: TROLAMINE SALICYLATE 10% TOP CREAM TOP PRN (14:30)
[2021-05-31] MEDS ORDERED: GABAPENTIN 100 MG CAP PO ONE (14:30)
[2021-05-31 17:00] VITALS: BP 152/87
[2021-05-31] MEDS: diphenhdrAMINE HCL 50 MG/1 ML VL IV PRN (20:10)
[2021-05-31 22:00] VITALS: BP 163/89
[2021-05-31] MEDS: GABAPENTIN 100 MG CAP PO SCH (22:25)
[2021-06-01] MEDS: IPRATROPIUM BROM 0.5 MG/2.5ML INH SOL NEB SCH ×5 (00:18→18:17)
[2021-06-01] MEDS: LEVALBUTEROL HCL 1.25 MG/3 ML NEB NEB SCH ×5 (00:18→18:17)
[2021-06-01 05:00] VITALS: BP 145/79
[2021-06-01] MEDS: MORPHINE SULFATE INJECTION 2 MG/ML SYRG IV PRN ×4 (05:10→20:29)
[2021-06-01] MEDS: GABAPENTIN 100 MG CAP PO SCH ×3 (05:11→21:53)
[2021-06-01] MEDS: CLINDAMYCIN 300MG IV 50 ML IV SCH ×3 (05:11→21:52)
[2021-06-01] MEDS: ACCU-CHEK COMFORT CURVE STRIP VI SCH ×4 (06:25→21:54)
[2021-06-01] MEDS: InsuLIN REG 1unit/0.01ml Soln (100units/ml) SC SCH ×4 (06:26→21:58)
[2021-06-01 09:00] VITALS: BP 142/81
[2021-06-01] MEDS: Nepro With Carbsteady ButterPecan 8oz Carton PO SCH ×2 (09:15→18:27)
[2021-06-01] MEDS: HYDROcodone-ACET 5/325MG TAB PO PRN (09:15)
[2021-06-01] MEDS: ENOXAPARIN SOD 30 MG/0.3 ML SYRINGE SC SCH (09:43)
[2021-06-01] MEDS: levoFLOXacin 250 MG TAB PO SCH (09:43)
[2021-06-01] MEDS: LIDOCAINE 5% TOPICAL PATCH TOP SCH (09:43)
[2021-06-01] MEDS: FLUCONAZOLE 100 MG TAB PO SCH (09:43)
[2021-06-01] MEDS: BISACODYL 5 MG EC TAB PO SCH ×2 (09:43→21:53)
[2021-06-01] MEDS: PANTOPRAZOLE 40 MG/10 ML VIAL INJ IV SCH (09:44)
[2021-06-01] MEDS: SODIUM CHLOR 0.9% PF (SALINE LOCK) 10ML VIAL/SYR IV SCH ×2 (09:44→21:52)
[2021-06-01] MEDS: FUROSEMIDE 100 MG/10ML VIAL IV SCH (10:16)
[2021-06-01] MEDS: cloNIDine HCL 0.1 MG TAB PO SCH ×2 (10:16→21:53)
[2021-06-01] MEDS: amLODIPine BESYLATE 5 MG TAB PO SCH (10:17)
[2021-06-01 13:00] VITALS: BP 130/76
[2021-06-01] MEDS: LORazepam 0.5 MG TAB PO PRN (13:00)
[2021-06-01 15:30] LABS: BUN/Creatinine Ratio 9.3; Calcium 7.9 mg/dL (8.5-10.1); Potassium 5.4 mmol/L (3.5-5.1)
[2021-06-01 17:00] VITALS: BP 151/79
[2021-06-01 22:00] VITALS: BP 144/62
[2021-06-02] MEDS: LEVALBUTEROL HCL 1.25 MG/3 ML NEB NEB SCH ×5 (00:14→21:52)
[2021-06-02] MEDS: IPRATROPIUM BROM 0.5 MG/2.5ML INH SOL NEB SCH ×5 (00:14→21:52)
[2021-06-02] MEDS: HYDROcodone-ACET 5/325MG TAB PO PRN ×3 (03:35→21:50)
[2021-06-02] MEDS: CLINDAMYCIN 300MG IV 50 ML IV SCH ×3 (05:34→21:36)
[2021-06-02] MEDS: GABAPENTIN 100 MG CAP PO SCH ×3 (05:35→21:37)
[2021-06-02 06:08] LABS: Eosinophils # (auto) 0.1 10 ^3/uL (0-0.8); Eosinophils % (auto) 0.6 % (0.0-7.0); Lymphocytes # (auto) 0.7 10 ^3/uL (0.4-5.4); Mean Corpuscular Hemoglobin 29.8 pg (28.0-32.0); Monocytes # (auto) 1.3 10 ^3/uL (0-1.3); Neutrophils # (auto) 9.8 10 ^3/uL (1.6-8.6); White Blood Cell 11.9 10^3/uL (4.4-10.8)
[2021-06-02 06:10] LABS: Basophils # (auto) 0 10 ^3/uL (0-0.2); Basophils % (auto) 0.4 % (0.0-2.0); Hematocrit 30.6 % (36.0-46.0); Hemoglobin 10.2 g/dL (12.2-16.2); Mean Corpuscular Hgb Conc. 33.3 g/dL (32.0-36.0); Mean Corpuscular Volume 89.5 fL (80.0-100.0); Monocytes % (auto) 10.8 % (0.0-12.0); Neutrophils % (auto) 82.2 % (37.0-80.0); Red Blood Cells 3.42 10^6/uL (4.0-5.20); Red Cell Distribution Width 15.7 % (11.8-14.3)
[2021-06-02 06:18] LABS: Albumin 2.4 g/dL (3.4-5.0); Calcium 8.2 mg/dL (8.5-10.1); Potassium 4.3 mmol/L (3.5-5.1)
[2021-06-02 06:24] LABS: Bilirubin, Total 0.4 mg/dL (0.2-1.0); Total Protein 5.9 g/dL (6.4-8.2)
[2021-06-02] MEDS: ACCU-CHEK COMFORT CURVE STRIP VI SCH ×4 (06:31→21:37)
[2021-06-02] MEDS: InsuLIN REG 1unit/0.01ml Soln (100units/ml) SC SCH ×4 (06:31→21:49)
[2021-06-02] MEDS: LORazepam 0.5 MG TAB PO PRN ×2 (07:50→21:04)
[2021-06-02 09:00] VITALS: BP 147/78
[2021-06-02] MEDS: Nepro With Carbsteady ButterPecan 8oz Carton PO SCH ×2 (09:12→17:33)
[2021-06-02] MEDS: SODIUM CHLOR 0.9% PF (SALINE LOCK) 10ML VIAL/SYR IV SCH ×2 (09:29→21:36)
[2021-06-02] MEDS: PANTOPRAZOLE 40 MG/10 ML VIAL INJ IV SCH (09:29)
[2021-06-02] MEDS: levoFLOXacin 250 MG TAB PO SCH (09:30)
[2021-06-02] MEDS: ENOXAPARIN SOD 30 MG/0.3 ML SYRINGE SC SCH (09:30)
[2021-06-02] MEDS: BISACODYL 5 MG EC TAB PO SCH ×2 (09:30→21:37)
[2021-06-02] MEDS: FLUCONAZOLE 100 MG TAB PO SCH (09:30)
[2021-06-02] MEDS: LIDOCAINE 5% TOPICAL PATCH TOP SCH (09:30)
[2021-06-02] MEDS: FUROSEMIDE 100 MG/10ML VIAL IV SCH (10:05)
[2021-06-02] MEDS: cloNIDine HCL 0.1 MG TAB PO SCH ×2 (10:05→21:37)
[2021-06-02] MEDS: amLODIPine BESYLATE 5 MG TAB PO SCH (10:06)
[2021-06-02] MEDS: MORPHINE SULFATE INJECTION 2 MG/ML SYRG IV PRN ×3 (10:28→19:37)
[2021-06-02 11:57] VITALS: BP 147/78
[2021-06-02 13:00] VITALS: BP 135/58
[2021-06-02 17:00] VITALS: BP 142/79
[2021-06-02 22:00] VITALS: BP 160/73
[2021-06-02 22:02] LABS: Basophils # (auto) 0 10 ^3/uL (0-0.2); Eosinophils # (auto) 0.1 10 ^3/uL (0-0.8); Hemoglobin 10.4 g/dL (12.2-16.2); Lymphocytes # (auto) 0.8 10 ^3/uL (0.4-5.4); Monocytes # (auto) 1.4 10 ^3/uL (0-1.3); Nucleated Red Blood Cells % 0.1 %; Red Cell Distribution Width 15.8 % (11.8-14.3)
[2021-06-02 22:04] LABS: Basophils % (auto) 0.1 % (0.0-2.0); Eosinophils % (auto) 0.8 % (0.0-7.0); Hematocrit 30.9 % (36.0-46.0); Lymphocytes % (auto) 7.2 % (10.0-50.0); Mean Corpuscular Hemoglobin 29.8 pg (28.0-32.0); Mean Corpuscular Hgb Conc. 33.6 g/dL (32.0-36.0); Mean Corpuscular Volume 88.8 fL (80.0-100.0); Monocytes % (auto) 11.7 % (0.0-12.0); Neutrophils # (auto) 9.3 10 ^3/uL (1.6-8.6); Neutrophils % (auto) 80.2 % (37.0-80.0); Red Blood Cells 3.48 10^6/uL (4.0-5.20); White Blood Cell 11.6 10^3/uL (4.4-10.8)
[2021-06-02 22:17] LABS: % Iron Saturation 12.1 % (15-50); Albumin 2.6 g/dL (3.4-5.0); Calcium 8.5 mg/dL (8.5-10.1)
[2021-06-02 22:23] LABS: BUN/Creatinine Ratio 9.7; Bilirubin, Total 0.4 mg/dL (0.2-1.0); Pre Albumin 24.8 mg/dL (20.0-40.0); Total Protein 6.5 g/dL (6.4-8.2)
[2021-06-02 22:27] LABS: Thyroid Stimulating Hormone 1.14 uIU/mL (0.358-3.74)
[2021-06-02] MEDS: diphenhdrAMINE HCL 50 MG/1 ML VL IV PRN (22:55)
[2021-06-03 05:00] VITALS: BP 169/81
[2021-06-03 05:52] LABS: Basophils # (auto) 0 10 ^3/uL (0-0.2); Basophils % (auto) 0.3 % (0.0-2.0); Eosinophils # (auto) 0.1 10 ^3/uL (0-0.8); Eosinophils % (auto) 0.7 % (0.0-7.0); Hematocrit 31.5 % (36.0-46.0); Hemoglobin 10.7 g/dL (12.2-16.2); Lymphocytes # (auto) 0.8 10 ^3/uL (0.4-5.4); Lymphocytes % (auto) 8.7 % (10.0-50.0); Mean Corpuscular Hgb Conc. 33.8 g/dL (32.0-36.0); Mean Corpuscular Volume 88.7 fL (80.0-100.0); Monocytes # (auto) 1.1 10 ^3/uL (0-1.3); Monocytes % (auto) 11.3 % (0.0-12.0); Neutrophils # (auto) 7.4 10 ^3/uL (1.6-8.6); Red Blood Cells 3.55 10^6/uL (4.0-5.20); White Blood Cell 9.4 10^3/uL (4.4-10.8)
[2021-06-03] MEDS: CLINDAMYCIN 300MG IV 50 ML IV SCH (05:54)
[2021-06-03] MEDS: GABAPENTIN 100 MG CAP PO SCH ×3 (05:54→22:12)
[2021-06-03] MEDS: IPRATROPIUM BROM 0.5 MG/2.5ML INH SOL NEB SCH ×4 (06:23→19:23)
[2021-06-03] MEDS: LEVALBUTEROL HCL 1.25 MG/3 ML NEB NEB SCH ×4 (06:23→19:20)
[2021-06-03] MEDS: ACCU-CHEK COMFORT CURVE STRIP VI SCH ×4 (06:33→22:13)
[2021-06-03] MEDS: InsuLIN REG 1unit/0.01ml Soln (100units/ml) SC SCH ×4 (06:33→22:00)
[2021-06-03] MEDS ORDERED: SODIUM CHL 0.9% 1000 ML BAG XX ONE (07:00)
[2021-06-03 09:00] VITALS: BP 102/70
[2021-06-03] MEDS: FUROSEMIDE 100 MG/10ML VIAL IV SCH (09:07)
[2021-06-03] MEDS: ONDANSETRON HCL 4 MG/2 ML VIAL IV PRN ×2 (09:08→14:10)
[2021-06-03] MEDS: PANTOPRAZOLE 40 MG/10 ML VIAL INJ IV SCH (09:08)
[2021-06-03] MEDS: amLODIPine BESYLATE 5 MG TAB PO SCH (09:09)
[2021-06-03] MEDS: FLUCONAZOLE 100 MG TAB PO SCH (09:09)
[2021-06-03] MEDS: cloNIDine HCL 0.1 MG TAB PO SCH ×2 (09:10→22:12)
[2021-06-03] MEDS: levoFLOXacin 250 MG TAB PO SCH (09:10)
[2021-06-03] MEDS: BISACODYL 5 MG EC TAB PO SCH ×2 (09:10→22:12)
[2021-06-03] MEDS: MORPHINE SULFATE INJECTION 2 MG/ML SYRG IV PRN ×4 (09:11→22:30)
[2021-06-03] MEDS: ACETAMINOPHEN 500 MG TAB PO PRN (11:20)
[2021-06-03] MEDS: HYDROcodone-ACET 5/325MG TAB PO PRN (12:16)
[2021-06-03 14:10] VITALS: BP 109/73
[2021-06-03] MEDS: CLINDAMYCIN HCL 150 MG CAP PO SCH ×2 (14:13→22:12)
[2021-06-03] MEDS: SODIUM CHLOR 0.9% PF (SALINE LOCK) 10ML VIAL/SYR IV SCH ×2 (14:15→22:11)
[2021-06-03] MEDS: Nepro With Carbsteady ButterPecan 8oz Carton PO SCH ×2 (14:15→18:24)
[2021-06-03 16:17] LABS: Free T4 (Free Thyroxine) 1.16 ng/dL (0.89-1.76)
[2021-06-03 16:18] LABS: Folate (Folic Acid) 2.81 ng/mL (5.38-24)
[2021-06-03 17:00] VITALS: BP 112/69
[2021-06-03 22:00] VITALS: BP 132/70
[2021-06-04 05:00] VITALS: BP 133/65
[2021-06-04] MEDS: CLINDAMYCIN HCL 150 MG CAP PO SCH ×3 (05:41→22:05)
[2021-06-04] MEDS: GABAPENTIN 100 MG CAP PO SCH ×3 (05:41→22:07)
[2021-06-04 05:58] LABS: Basophils # (auto) 0 10 ^3/uL (0-0.2); Basophils % (auto) 0.4 % (0.0-2.0); Eosinophils # (auto) 0.1 10 ^3/uL (0-0.8); Eosinophils % (auto) 0.5 % (0.0-7.0); Hematocrit 26.7 % (36.0-46.0); Lymphocytes # (auto) 0.5 10 ^3/uL (0.4-5.4); Lymphocytes % (auto) 4.7 % (10.0-50.0); Mean Corpuscular Hemoglobin 30.4 pg (28.0-32.0); Mean Corpuscular Hgb Conc. 33.8 g/dL (32.0-36.0); Mean Corpuscular Volume 89.9 fL (80.0-100.0); Monocytes # (auto) 1.2 10 ^3/uL (0-1.3); Monocytes % (auto) 11.8 % (0.0-12.0); Neutrophils # (auto) 8.4 10 ^3/uL (1.6-8.6); Neutrophils % (auto) 82.6 % (37.0-80.0); Red Blood Cells 2.97 10^6/uL (4.0-5.20); Red Cell Distribution Width 16.3 % (11.8-14.3); White Blood Cell 10.1 10^3/uL (4.4-10.8)
[2021-06-04] MEDS: IPRATROPIUM BROM 0.5 MG/2.5ML INH SOL NEB SCH ×4 (06:12→18:58)
[2021-06-04] MEDS: LEVALBUTEROL HCL 1.25 MG/3 ML NEB NEB SCH ×4 (06:12→18:58)
[2021-06-04] MEDS: ACCU-CHEK COMFORT CURVE STRIP VI SCH ×4 (06:35→22:07)
[2021-06-04] MEDS: InsuLIN REG 1unit/0.01ml Soln (100units/ml) SC SCH ×4 (06:35→21:57)
[2021-06-04] MEDS: MORPHINE SULFATE INJECTION 2 MG/ML SYRG IV PRN ×2 (06:44→15:20)
[2021-06-04] MEDS: Nepro With Carbsteady ButterPecan 8oz Carton PO SCH ×2 (08:00→18:24)
[2021-06-04 09:00] VITALS: BP 101/70
[2021-06-04] MEDS: HYDROcodone-ACET 5/325MG TAB PO PRN (09:53)
[2021-06-04] MEDS: SODIUM CHLOR 0.9% PF (SALINE LOCK) 10ML VIAL/SYR IV SCH ×2 (10:00→22:04)
[2021-06-04] MEDS: BISACODYL 5 MG EC TAB PO SCH ×2 (10:15→22:06)
[2021-06-04] MEDS: FLUCONAZOLE 100 MG TAB PO SCH (10:15)
[2021-06-04] MEDS: PANTOPRAZOLE 40 MG TAB PO SCH (10:15)
[2021-06-04] MEDS: LORazepam 0.5 MG TAB PO PRN ×2 (10:15→22:01)
[2021-06-04] MEDS: levoFLOXacin 250 MG TAB PO SCH (10:15)
[2021-06-04] MEDS: LIDOCAINE 5% TOPICAL PATCH TOP SCH ×2 (10:15→11:39)
[2021-06-04] MEDS ORDERED: B-COMPLEX W/ C & FOLIC ACID(NEPHROVITE TAB) PO ONE (11:30)
[2021-06-04 13:00] VITALS: BP 106/85
[2021-06-04] MEDS: CALCIUM ACETATE 667 MG CAP PO SCH ×2 (13:30→18:24)
[2021-06-04 17:00] VITALS: BP 98/71
[2021-06-04 22:00] VITALS: BP 139/89
[2021-06-04] MEDS: cloNIDine HCL 0.1 MG TAB PO SCH (22:05)
[2021-06-05 05:00] VITALS: BP 131/73
[2021-06-05] MEDS: CLINDAMYCIN HCL 150 MG CAP PO SCH ×3 (05:37→21:41)
[2021-06-05] MEDS: GABAPENTIN 100 MG CAP PO SCH ×3 (05:38→21:41)
[2021-06-05] MEDS: ACCU-CHEK COMFORT CURVE STRIP VI SCH ×4 (05:38→21:43)
[2021-06-05] MEDS: InsuLIN REG 1unit/0.01ml Soln (100units/ml) SC SCH ×4 (05:38→21:48)
[2021-06-05] MEDS: IPRATROPIUM BROM 0.5 MG/2.5ML INH SOL NEB SCH ×4 (06:23→19:06)
[2021-06-05] MEDS: LEVALBUTEROL HCL 1.25 MG/3 ML NEB NEB SCH ×4 (06:23→19:06)
[2021-06-05] MEDS ORDERED: SODIUM CHL 0.9% 1000 ML BAG XX ONE (07:00)
[2021-06-05] MEDS: SODIUM CHLOR 0.9% PF (SALINE LOCK) 10ML VIAL/SYR IV SCH ×2 (08:00→21:39)
[2021-06-05] MEDS: Nepro With Carbsteady ButterPecan 8oz Carton PO SCH ×2 (08:00→17:56)
[2021-06-05 08:05] LABS: Basophils # (auto) 0 10 ^3/uL (0-0.2); Basophils % (auto) 0.2 % (0.0-2.0); Eosinophils # (auto) 0.1 10 ^3/uL (0-0.8); Eosinophils % (auto) 0.6 % (0.0-7.0); Hematocrit 27.4 % (36.0-46.0); Hemoglobin 9.2 g/dL (12.2-16.2); Lymphocytes # (auto) 0.5 10 ^3/uL (0.4-5.4); Lymphocytes % (auto) 5.9 % (10.0-50.0); Mean Corpuscular Hgb Conc. 33.8 g/dL (32.0-36.0); Mean Corpuscular Volume 88.9 fL (80.0-100.0); Monocytes % (auto) 10.6 % (0.0-12.0); Neutrophils # (auto) 7.5 10 ^3/uL (1.6-8.6); Neutrophils % (auto) 82.7 % (37.0-80.0); Nucleated Red Blood Cells % 0.1 %; Red Blood Cells 3.08 10^6/uL (4.0-5.20); Red Cell Distribution Width 16.6 % (11.8-14.3); White Blood Cell 9.1 10^3/uL (4.4-10.8)
[2021-06-05 08:15] LABS: Albumin 2.1 g/dL (3.4-5.0); Calcium 8.4 mg/dL (8.5-10.1); Potassium 4.7 mmol/L (3.5-5.1)
[2021-06-05 08:19] LABS: BUN/Creatinine Ratio 7.7; Bilirubin, Total 0.4 mg/dL (0.2-1.0); Phosphorus 4.9 mg/dL (2.5-4.90); Total Protein 6.3 g/dL (6.4-8.2)
[2021-06-05] MEDS: CALCIUM ACETATE 667 MG CAP PO SCH ×3 (08:50→17:56)
[2021-06-05] MEDS: levoFLOXacin 250 MG TAB PO SCH (08:51)
[2021-06-05] MEDS: PANTOPRAZOLE 40 MG TAB PO SCH (08:51)
[2021-06-05] MEDS: LIDOCAINE 5% TOPICAL PATCH TOP SCH (08:51)
[2021-06-05] MEDS: B-COMPLEX W/ C & FOLIC ACID(NEPHROVITE TAB) PO SCH (08:51)
[2021-06-05] MEDS: FLUCONAZOLE 100 MG TAB PO SCH (08:51)
[2021-06-05] MEDS: BISACODYL 5 MG EC TAB PO SCH ×2 (08:51→21:41)
[2021-06-05 09:00] VITALS: BP 96/61
[2021-06-05] MEDS: MORPHINE SULFATE INJECTION 2 MG/ML SYRG IV PRN ×2 (09:04→18:36)
[2021-06-05] MEDS: amLODIPine BESYLATE 5 MG TAB PO SCH (10:00)
[2021-06-05] MEDS: cloNIDine HCL 0.1 MG TAB PO SCH ×2 (10:00→21:42)
[2021-06-05] MEDS: HYDROcodone-ACET 5/325MG TAB PO PRN ×2 (12:39→23:40)
[2021-06-05 13:00] VITALS: BP 135/92
[2021-06-05] MEDS: LORazepam 0.5 MG TAB PO PRN ×2 (16:03→22:26)
[2021-06-05 17:00] VITALS: BP 154/80
[2021-06-05 20:00] VITALS: BP 160/90
[2021-06-05] MEDS ORDERED: EPOETIN ALFA-EPBX 10,000 UNIT/1ML VIAL SC ONE (21:00)
[2021-06-05 22:00] VITALS: BP 160/90
[2021-06-06] MEDS: IPRATROPIUM BROM 0.5 MG/2.5ML INH SOL NEB SCH ×5 (00:16→23:25)
[2021-06-06] MEDS: LEVALBUTEROL HCL 1.25 MG/3 ML NEB NEB SCH ×5 (00:16→23:25)
[2021-06-06 05:00] VITALS: BP 153/83
[2021-06-06 05:43] VITALS: BP 153/83
[2021-06-06] MEDS: CLINDAMYCIN HCL 150 MG CAP PO SCH (05:54)
[2021-06-06] MEDS: ACCU-CHEK COMFORT CURVE STRIP VI SCH ×4 (05:54→21:45)
[2021-06-06] MEDS: MORPHINE SULFATE INJECTION 2 MG/ML SYRG IV PRN ×4 (05:55→22:29)
[2021-06-06] MEDS: GABAPENTIN 100 MG CAP PO SCH ×2 (06:02→14:13)
[2021-06-06] MEDS: InsuLIN REG 1unit/0.01ml Soln (100units/ml) SC SCH ×4 (06:11→21:54)
[2021-06-06] MEDS: Nepro With Carbsteady ButterPecan 8oz Carton PO SCH ×2 (08:09→18:00)
[2021-06-06] MEDS: CALCIUM ACETATE 667 MG CAP PO SCH ×3 (08:32→18:00)
[2021-06-06 09:00] VITALS: BP 131/83
[2021-06-06] MEDS ORDERED: LORazepam 2MG/ML-1ML VIAL IV PRN (09:30)
[2021-06-06] MEDS: SODIUM CHLOR 0.9% PF (SALINE LOCK) 10ML VIAL/SYR IV SCH ×2 (10:45→21:44)
[2021-06-06] MEDS: cloNIDine HCL 0.1 MG TAB PO SCH ×2 (10:46→21:44)
[2021-06-06] MEDS: levoFLOXacin 250 MG TAB PO SCH (10:46)
[2021-06-06] MEDS: B-COMPLEX W/ C & FOLIC ACID(NEPHROVITE TAB) PO SCH (10:46)
[2021-06-06] MEDS: BISACODYL 5 MG EC TAB PO SCH ×2 (10:46→21:44)
[2021-06-06] MEDS: PANTOPRAZOLE 40 MG TAB PO SCH (10:47)
[2021-06-06] MEDS: amLODIPine BESYLATE 5 MG TAB PO SCH (10:47)
[2021-06-06] MEDS: LIDOCAINE 5% TOPICAL PATCH TOP SCH (10:47)
[2021-06-06 13:00] VITALS: BP 125/70
[2021-06-06] MEDS: LORazepam 0.5 MG TAB PO PRN ×2 (15:14→21:44)
[2021-06-06 17:00] VITALS: BP 130/72
[2021-06-06 20:00] VITALS: BP 143/68
[2021-06-07] MEDS: MORPHINE SULFATE INJECTION 2 MG/ML SYRG IV PRN ×4 (03:54→19:48)
[2021-06-07 05:00] VITALS: BP 132/67
[2021-06-07] MEDS: ACCU-CHEK COMFORT CURVE STRIP VI SCH ×4 (06:26→21:56)
[2021-06-07] MEDS: InsuLIN REG 1unit/0.01ml Soln (100units/ml) SC SCH ×4 (06:26→21:57)
[2021-06-07] MEDS ORDERED: SODIUM CHL 0.9% 1000 ML BAG XX ONE (07:00)
[2021-06-07] MEDS: LEVALBUTEROL HCL 1.25 MG/3 ML NEB NEB SCH ×2 (07:16→20:01)
[2021-06-07] MEDS: IPRATROPIUM BROM 0.5 MG/2.5ML INH SOL NEB SCH ×2 (07:16→20:01)
[2021-06-07] MEDS: Nepro With Carbsteady ButterPecan 8oz Carton PO SCH ×2 (07:34→18:16)
[2021-06-07] MEDS: CALCIUM ACETATE 667 MG CAP PO SCH ×3 (08:00→18:16)
[2021-06-07 09:00] VITALS: BP 170/80
[2021-06-07] MEDS: SODIUM CHLOR 0.9% PF (SALINE LOCK) 10ML VIAL/SYR IV SCH ×2 (09:49→21:55)
[2021-06-07] MEDS: BISACODYL 5 MG EC TAB PO SCH ×3 (09:50→21:56)
[2021-06-07] MEDS: B-COMPLEX W/ C & FOLIC ACID(NEPHROVITE TAB) PO SCH ×2 (09:50→11:55)
[2021-06-07] MEDS: levoFLOXacin 250 MG TAB PO SCH ×2 (09:50→11:55)
[2021-06-07] MEDS: cloNIDine HCL 0.1 MG TAB PO SCH ×3 (09:50→21:56)
[2021-06-07] MEDS: amLODIPine BESYLATE 5 MG TAB PO SCH ×2 (09:51→11:56)
[2021-06-07] MEDS: PANTOPRAZOLE 40 MG TAB PO SCH ×2 (09:51→11:56)
[2021-06-07] MEDS: LIDOCAINE 5% TOPICAL PATCH TOP SCH (11:56)
[2021-06-07] MEDS: LORazepam 0.5 MG TAB PO PRN (11:57)
[2021-06-07 13:00] VITALS: BP 138/73
[2021-06-07] MEDS: LORazepam 2MG/ML-1ML VIAL IV PRN ×2 (16:01→17:12)
[2021-06-07] MEDS ORDERED: MORPHINE SULFATE INJECTION 2 MG/ML SYRG IV ONE (17:00)
[2021-06-07 18:50] VITALS: BP 150/74
[2021-06-07] MEDS ORDERED: METOPROLOL SUCCINATE XL 50 MG TAB PO ONE (19:00)
[2021-06-07] MEDS ORDERED: EPOETIN ALFA-EPBX 10,000 UNIT/1ML VIAL SC ONE (21:00)
[2021-06-07] MEDS: GABAPENTIN 100 MG CAP PO SCH (21:56)
[2021-06-07 22:00] VITALS: BP 140/91
[2021-06-07] MEDS: HYDROcodone-ACET 5/325MG TAB PO PRN (22:11)
[2021-06-08] MEDS: MORPHINE SULFATE INJECTION 2 MG/ML SYRG IV PRN ×4 (00:34→21:32)
[2021-06-08] MEDS: IPRATROPIUM BROM 0.5 MG/2.5ML INH SOL NEB SCH ×4 (00:52→18:23)
[2021-06-08] MEDS: LEVALBUTEROL HCL 1.25 MG/3 ML NEB NEB SCH ×4 (00:53→18:23)
[2021-06-08 05:00] VITALS: BP 148/74
[2021-06-08] MEDS: ACCU-CHEK COMFORT CURVE STRIP VI SCH ×4 (06:23→21:33)
[2021-06-08] MEDS: InsuLIN REG 1unit/0.01ml Soln (100units/ml) SC SCH ×4 (06:23→22:00)
[2021-06-08] MEDS: CALCIUM ACETATE 667 MG CAP PO SCH ×3 (08:38→17:38)
[2021-06-08 09:23] VITALS: BP 142/58
[2021-06-08] MEDS: SODIUM CHLOR 0.9% PF (SALINE LOCK) 10ML VIAL/SYR IV SCH ×2 (09:47→21:32)
[2021-06-08] MEDS: Nepro With Carbsteady ButterPecan 8oz Carton PO SCH ×2 (09:47→17:39)
[2021-06-08] MEDS: cloNIDine HCL 0.1 MG TAB PO SCH ×2 (09:48→21:33)
[2021-06-08] MEDS: B-COMPLEX W/ C & FOLIC ACID(NEPHROVITE TAB) PO SCH (09:48)
[2021-06-08] MEDS: BISACODYL 5 MG EC TAB PO SCH ×2 (09:48→21:33)
[2021-06-08] MEDS: levoFLOXacin 250 MG TAB PO SCH (09:48)
[2021-06-08] MEDS: amLODIPine BESYLATE 5 MG TAB PO SCH (09:49)
[2021-06-08] MEDS: LIDOCAINE 5% TOPICAL PATCH TOP SCH (09:49)
[2021-06-08] MEDS: PANTOPRAZOLE 40 MG TAB PO SCH (09:49)
[2021-06-08] MEDS ORDERED: methylPREDNISolone SOD SUCC 125 MG/2 ML VL IV SCH ×2 (12:15→14:00)
[2021-06-08] MEDS: methylPREDNISolone SOD SUCC 125 MG/2 ML VL IV SCH ×2 (12:29→21:31)
[2021-06-08] MEDS ORDERED: methylPREDNISolone SOD SUCC 125 MG/2 ML VL IV ONE ×2 (12:33→12:45)
[2021-06-08 13:00] VITALS: BP 153/78
[2021-06-08] MEDS ORDERED: VANCOMYCIN PER PHARMACY 0 MG IV SCH (13:30)
[2021-06-08 13:52] LABS: Basophils # (auto) 0.1 10 ^3/uL (0-0.2); Basophils % (auto) 0.5 % (0.0-2.0); Eosinophils # (auto) 0.1 10 ^3/uL (0-0.8); Eosinophils % (auto) 0.6 % (0.0-7.0); Hematocrit 30.7 % (36.0-46.0); Hemoglobin 9.9 g/dL (12.2-16.2); Lymphocytes # (auto) 0.5 10 ^3/uL (0.4-5.4); Lymphocytes % (auto) 3.2 % (10.0-50.0); Mean Corpuscular Hgb Conc. 32.3 g/dL (32.0-36.0); Mean Corpuscular Volume 89.7 fL (80.0-100.0); Monocytes # (auto) 1.2 10 ^3/uL (0-1.3); Monocytes % (auto) 8.8 % (0.0-12.0); Neutrophils # (auto) 12.1 10 ^3/uL (1.6-8.6); Neutrophils % (auto) 86.9 % (37.0-80.0); Nucleated Red Blood Cells % 0.1 %; Red Blood Cells 3.42 10^6/uL (4.0-5.20); Red Cell Distribution Width 16.2 % (11.8-14.3)
[2021-06-08] MEDS: ACETYLCYSTEINE 10 %(100MG/ML) SOL 4ML NEB SCH ×2 (14:02→18:23)
[2021-06-08 14:12] LABS: Albumin 2.3 g/dL (3.4-5.0); Calcium 9.4 mg/dL (8.5-10.1)
[2021-06-08 14:17] LABS: BUN/Creatinine Ratio 7.5; Bilirubin, Total 0.4 mg/dL (0.2-1.0); Total Protein 6.9 g/dL (6.4-8.2)
[2021-06-08] MEDS ORDERED: MEROPENEM 500MG IVPB 50 ML IV ONE (14:30)
[2021-06-08] MEDS ORDERED: VANCOMYCIN 1GM/250ML 250 ML IV ONE (15:00)
[2021-06-08] MEDS ORDERED: LORazepam 2MG/ML-1ML VIAL IV ONE (16:00)
[2021-06-08 17:00] VITALS: BP 135/78
[2021-06-08] MEDS: ONDANSETRON HCL 4 MG/2 ML VIAL IV PRN (21:32)
[2021-06-08 22:00] VITALS: BP 127/68
[2021-06-09] VITALS (7 sets, daily range): BP systolic 128–135; BP diastolic 57–85
[2021-06-09] MEDS: IPRATROPIUM BROM 0.5 MG/2.5ML INH SOL NEB SCH ×4 (00:14→19:02)
[2021-06-09] MEDS: ACETYLCYSTEINE 10 %(100MG/ML) SOL 4ML NEB SCH ×4 (00:14→19:02)
[2021-06-09] MEDS: LEVALBUTEROL HCL 1.25 MG/3 ML NEB NEB SCH ×4 (00:15→19:02)
[2021-06-09] MEDS: LORazepam 2MG/ML-1ML VIAL IV PRN ×2 (00:21→16:51)
[2021-06-09] MEDS: MORPHINE SULFATE INJECTION 2 MG/ML SYRG IV PRN ×3 (01:23→21:13)
[2021-06-09] MEDS: ACETAMINOPHEN 500 MG TAB PO PRN (05:40)
[2021-06-09] MEDS: methylPREDNISolone SOD SUCC 125 MG/2 ML VL IV SCH ×3 (05:40→21:11)
[2021-06-09 06:08] LABS: Basophils # (auto) 0 10 ^3/uL (0-0.2); Basophils % (auto) 0.5 % (0.0-2.0); Eosinophils # (auto) 0 10 ^3/uL (0-0.8); Hemoglobin 9.9 g/dL (12.2-16.2); Lymphocytes # (auto) 0.1 10 ^3/uL (0.4-5.4); Lymphocytes % (auto) 1.5 % (10.0-50.0); Mean Corpuscular Hemoglobin 29.5 pg (28.0-32.0); Mean Corpuscular Hgb Conc. 33.2 g/dL (32.0-36.0); Monocytes # (auto) 0.2 10 ^3/uL (0-1.3); Monocytes % (auto) 2.3 % (0.0-12.0); Neutrophils # (auto) 8.5 10 ^3/uL (1.6-8.6); Neutrophils % (auto) 95.7 % (37.0-80.0); Red Blood Cells 3.37 10^6/uL (4.0-5.20); Red Cell Distribution Width 16.5 % (11.8-14.3); White Blood Cell 8.9 10^3/uL (4.4-10.8)
[2021-06-09] MEDS: ACCU-CHEK COMFORT CURVE STRIP VI SCH ×4 (06:10→21:12)
[2021-06-09] MEDS: InsuLIN REG 1unit/0.01ml Soln (100units/ml) SC SCH ×4 (06:11→21:42)
[2021-06-09] MEDS: CALCIUM ACETATE 667 MG CAP PO SCH ×3 (08:00→16:49)
[2021-06-09] MEDS: Nepro With Carbsteady ButterPecan 8oz Carton PO SCH ×2 (08:00→16:48)
[2021-06-09] MEDS: MEROPENEM 500MG IVPB 50 ML IV SCH ×2 (09:52→21:10)
[2021-06-09] MEDS: LIDOCAINE 5% TOPICAL PATCH TOP SCH (09:54)
[2021-06-09] MEDS: SODIUM CHLOR 0.9% PF (SALINE LOCK) 10ML VIAL/SYR IV SCH ×2 (09:54→21:11)
[2021-06-09] MEDS: cloNIDine HCL 0.1 MG TAB PO SCH ×2 (10:15→21:41)
[2021-06-09] MEDS: amLODIPine BESYLATE 5 MG TAB PO SCH (10:15)
[2021-06-09] MEDS: BISACODYL 5 MG EC TAB PO SCH ×2 (11:02→21:09)
[2021-06-09] MEDS: PANTOPRAZOLE 40 MG TAB PO SCH (11:02)
[2021-06-09] MEDS: B-COMPLEX W/ C & FOLIC ACID(NEPHROVITE TAB) PO SCH (11:02)
[2021-06-09] MEDS: LINEZOLID 600MG/300ML 300 ML IV SCH ×2 (12:29→21:11)
[2021-06-10] MEDS: LEVALBUTEROL HCL 1.25 MG/3 ML NEB NEB SCH ×4 (00:06→18:59)
[2021-06-10] MEDS: ACETYLCYSTEINE 10 %(100MG/ML) SOL 4ML NEB SCH ×4 (00:06→18:59)
[2021-06-10] MEDS: IPRATROPIUM BROM 0.5 MG/2.5ML INH SOL NEB SCH ×2 (00:06→18:59)
[2021-06-10] MEDS: MORPHINE SULFATE INJECTION 2 MG/ML SYRG IV PRN ×5 (01:13→22:26)
[2021-06-10 05:00] VITALS: BP 137/75
[2021-06-10] MEDS: methylPREDNISolone SOD SUCC 125 MG/2 ML VL IV SCH (05:16)
[2021-06-10] MEDS: ACCU-CHEK COMFORT CURVE STRIP VI SCH ×4 (05:40→22:25)
[2021-06-10] MEDS: InsuLIN REG 1unit/0.01ml Soln (100units/ml) SC SCH ×4 (05:42→22:00)
[2021-06-10 06:51] LABS: Hematocrit 26.6 % (36.0-46.0); Hemoglobin 8.9 g/dL (12.2-16.2)
[2021-06-10] MEDS ORDERED: SODIUM CHL 0.9% 1000 ML BAG XX ONE (07:00)
[2021-06-10 07:10] LABS: BUN/Creatinine Ratio 10.9; Calcium 9.2 mg/dL (8.5-10.1); Potassium 4.8 mmol/L (3.5-5.1)
[2021-06-10] MEDS: Nepro With Carbsteady ButterPecan 8oz Carton PO SCH ×2 (08:00→19:07)
[2021-06-10] MEDS: CALCIUM ACETATE 667 MG CAP PO SCH ×3 (08:00→19:07)
[2021-06-10 09:00] VITALS: BP 153/64
[2021-06-10] MEDS: amLODIPine BESYLATE 5 MG TAB PO SCH (10:00)
[2021-06-10] MEDS: cloNIDine HCL 0.1 MG TAB PO SCH ×2 (10:00→22:24)
[2021-06-10] MEDS: BISACODYL 5 MG EC TAB PO SCH ×2 (10:00→22:25)
[2021-06-10] MEDS: MEROPENEM 500MG IVPB 50 ML IV SCH ×2 (10:00→22:24)
[2021-06-10] MEDS: SODIUM CHLOR 0.9% PF (SALINE LOCK) 10ML VIAL/SYR IV SCH ×2 (12:26→22:23)
[2021-06-10] MEDS: LIDOCAINE 5% TOPICAL PATCH TOP SCH (12:33)
[2021-06-10] MEDS: LINEZOLID 600MG/300ML 300 ML IV SCH ×2 (12:42→22:24)
[2021-06-10] MEDS: PANTOPRAZOLE 40 MG/10 ML VIAL INJ IV SCH (12:42)
[2021-06-10] MEDS: B-COMPLEX W/ C & FOLIC ACID(NEPHROVITE TAB) PO SCH (12:42)
[2021-06-10 13:00] VITALS: BP 118/79
[2021-06-10 17:00] VITALS: BP 146/77
[2021-06-10] MEDS: HYDROcodone-ACET 5/325MG TAB PO PRN (17:03)
[2021-06-10] MEDS ORDERED: EPOETIN ALFA-EPBX 10,000 UNIT/1ML VIAL SC ONE (21:00)
[2021-06-10 22:00] VITALS: BP 140/72
[2021-06-10] MEDS: methylPREDNISolone SOD SUCC 40 MG/ML VL IV SCH (22:23)
[2021-06-10] MEDS: GABAPENTIN 100 MG CAP PO SCH (22:25)
[2021-06-11] MEDS: IPRATROPIUM BROM 0.5 MG/2.5ML INH SOL NEB SCH ×5 (00:05→23:56)
[2021-06-11] MEDS: LEVALBUTEROL HCL 1.25 MG/3 ML NEB NEB SCH ×5 (00:05→23:56)
[2021-06-11] MEDS: ACETYLCYSTEINE 10 %(100MG/ML) SOL 4ML NEB SCH ×5 (00:06→23:58)
[2021-06-11] MEDS: ONDANSETRON HCL 4 MG/2 ML VIAL IV PRN (00:54)
[2021-06-11] MEDS: LORazepam 2MG/ML-1ML VIAL IV PRN (00:55)
[2021-06-11] MEDS: HYDROcodone-ACET 5/325MG TAB PO PRN ×2 (04:00→09:37)
[2021-06-11 05:02] VITALS: BP 122/68
[2021-06-11] MEDS: InsuLIN REG 1unit/0.01ml Soln (100units/ml) SC SCH ×4 (06:04→23:26)
[2021-06-11] MEDS: ACCU-CHEK COMFORT CURVE STRIP VI SCH ×4 (06:04→22:35)
[2021-06-11 06:17] LABS: Basophils # (auto) 0 10 ^3/uL (0-0.2); Basophils % (auto) 0.1 % (0.0-2.0); Eosinophils # (auto) 0 10 ^3/uL (0-0.8); Hemoglobin 8.9 g/dL (12.2-16.2); Lymphocytes # (auto) 0.1 10 ^3/uL (0.4-5.4); Lymphocytes % (auto) 1.7 % (10.0-50.0); Mean Corpuscular Hemoglobin 30.1 pg (28.0-32.0); Mean Corpuscular Hgb Conc. 34.4 g/dL (32.0-36.0); Mean Corpuscular Volume 87.6 fL (80.0-100.0); Monocytes # (auto) 0.3 10 ^3/uL (0-1.3); Monocytes % (auto) 3.6 % (0.0-12.0); Neutrophils # (auto) 7.2 10 ^3/uL (1.6-8.6); Neutrophils % (auto) 94.6 % (37.0-80.0); Red Blood Cells 2.97 10^6/uL (4.0-5.20); Red Cell Distribution Width 16.5 % (11.8-14.3); White Blood Cell 7.7 10^3/uL (4.4-10.8)
[2021-06-11] MEDS: MORPHINE SULFATE INJECTION 2 MG/ML SYRG IV PRN ×4 (06:59→22:36)
[2021-06-11 07:10] VITALS: BP 122/68
[2021-06-11 09:00] VITALS: BP_SYST 129; BP_SYST 133; BP_DIAS 66; BP_DIAS 71
[2021-06-11] MEDS: Nepro With Carbsteady ButterPecan 8oz Carton PO SCH ×2 (09:30→18:19)
[2021-06-11] MEDS: CALCIUM ACETATE 667 MG CAP PO SCH ×3 (09:30→18:18)
[2021-06-11] MEDS: cloNIDine HCL 0.1 MG TAB PO SCH ×2 (09:31→22:34)
[2021-06-11] MEDS: methylPREDNISolone SOD SUCC 40 MG/ML VL IV SCH ×2 (09:31→22:32)
[2021-06-11] MEDS: SODIUM CHLOR 0.9% PF (SALINE LOCK) 10ML VIAL/SYR IV SCH ×2 (09:31→22:32)
[2021-06-11] MEDS: PANTOPRAZOLE 40 MG/10 ML VIAL INJ IV SCH (09:31)
[2021-06-11] MEDS: LINEZOLID 600MG/300ML 300 ML IV SCH ×2 (09:31→22:32)
[2021-06-11] MEDS: B-COMPLEX W/ C & FOLIC ACID(NEPHROVITE TAB) PO SCH (09:32)
[2021-06-11] MEDS: BISACODYL 5 MG EC TAB PO SCH ×2 (09:32→22:34)
[2021-06-11] MEDS: amLODIPine BESYLATE 5 MG TAB PO SCH (09:32)
[2021-06-11] MEDS: LIDOCAINE 5% TOPICAL PATCH TOP SCH (09:32)
[2021-06-11] MEDS: MEROPENEM 500MG IVPB 50 ML IV SCH ×2 (11:43→22:33)
[2021-06-11 13:00] VITALS: BP 133/71
[2021-06-11 18:32] VITALS: BP 133/71
[2021-06-11 22:00] VITALS: BP 143/64
[2021-06-12] MEDS: MORPHINE SULFATE INJECTION 2 MG/ML SYRG IV PRN ×3 (04:02→20:55)
[2021-06-12 05:00] VITALS: BP 132/80
[2021-06-12] MEDS: InsuLIN REG 1unit/0.01ml Soln (100units/ml) SC SCH ×4 (05:53→21:26)
[2021-06-12] MEDS: ACCU-CHEK COMFORT CURVE STRIP VI SCH ×4 (05:53→21:26)
[2021-06-12 06:07] LABS: Calcium 8.9 mg/dL (8.5-10.1); Potassium 4.6 mmol/L (3.5-5.1)
[2021-06-12 06:10] LABS: BUN/Creatinine Ratio 12.1
[2021-06-12] MEDS ORDERED: SODIUM CHL 0.9% 1000 ML BAG XX ONE (07:00)
[2021-06-12] MEDS: LEVALBUTEROL HCL 1.25 MG/3 ML NEB NEB SCH ×4 (07:25→23:19)
[2021-06-12] MEDS: IPRATROPIUM BROM 0.5 MG/2.5ML INH SOL NEB SCH ×4 (07:26→23:20)
[2021-06-12] MEDS: ACETYLCYSTEINE 10 %(100MG/ML) SOL 4ML NEB SCH ×4 (07:26→23:19)
[2021-06-12] MEDS: Nepro With Carbsteady ButterPecan 8oz Carton PO SCH ×2 (08:51→17:48)
[2021-06-12] MEDS: CALCIUM ACETATE 667 MG CAP PO SCH ×3 (08:51→17:48)
[2021-06-12 09:00] VITALS: BP 150/70
[2021-06-12] MEDS: methylPREDNISolone SOD SUCC 40 MG/ML VL IV SCH ×2 (09:13→21:30)
[2021-06-12] MEDS: PANTOPRAZOLE 40 MG/10 ML VIAL INJ IV SCH (09:14)
[2021-06-12] MEDS: B-COMPLEX W/ C & FOLIC ACID(NEPHROVITE TAB) PO SCH (09:16)
[2021-06-12] MEDS: BISACODYL 5 MG EC TAB PO SCH ×2 (09:16→21:31)
[2021-06-12] MEDS: LINEZOLID 600MG/300ML 300 ML IV SCH (09:17)
[2021-06-12] MEDS: LIDOCAINE 5% TOPICAL PATCH TOP SCH (09:21)
[2021-06-12] MEDS: HYDROcodone-ACET 5/325MG TAB PO PRN ×2 (12:02→18:06)
[2021-06-12 13:00] VITALS: BP 164/79
[2021-06-12] MEDS ORDERED: ENOXAPARIN SOD 80 MG/0.8ML SYRINGE SC ONE (13:45)
[2021-06-12] MEDS: amLODIPine BESYLATE 5 MG TAB PO SCH (14:09)
[2021-06-12] MEDS: cloNIDine HCL 0.1 MG TAB PO SCH ×2 (14:09→21:31)
[2021-06-12] MEDS: MEROPENEM 500MG IVPB 50 ML IV SCH ×2 (14:10→21:31)
[2021-06-12] MEDS: SODIUM CHLOR 0.9% PF (SALINE LOCK) 10ML VIAL/SYR IV SCH ×2 (15:00→21:31)
[2021-06-12 16:45] VITALS: BP 140/70
[2021-06-12] MEDS ORDERED: EPOETIN ALFA-EPBX 10,000 UNIT/1ML VIAL SC ONE (21:00)
[2021-06-12] MEDS: GABAPENTIN 100 MG CAP PO SCH (21:32)
[2021-06-12 21:57] VITALS: BP 133/76
[2021-06-12] MEDS: LORazepam 2MG/ML-1ML VIAL IV PRN (22:35)
[2021-06-13] MEDS: HYDROcodone-ACET 5/325MG TAB PO PRN ×2 (01:56→08:34)
[2021-06-13] MEDS: MORPHINE SULFATE INJECTION 2 MG/ML SYRG IV PRN ×2 (03:57→11:58)
[2021-06-13 05:00] VITALS: BP 130/72
[2021-06-13 05:52] LABS: Basophils # (auto) 0 10 ^3/uL (0-0.2); Basophils % (auto) 0.4 % (0.0-2.0); Eosinophils # (auto) 0 10 ^3/uL (0-0.8); Hematocrit 27.5 % (36.0-46.0); Hemoglobin 9.1 g/dL (12.2-16.2); Lymphocytes # (auto) 0.2 10 ^3/uL (0.4-5.4); Lymphocytes % (auto) 2.6 % (10.0-50.0); Mean Corpuscular Hemoglobin 29.2 pg (28.0-32.0); Mean Corpuscular Hgb Conc. 33.2 g/dL (32.0-36.0); Mean Corpuscular Volume 87.9 fL (80.0-100.0); Monocytes # (auto) 0.3 10 ^3/uL (0-1.3); Monocytes % (auto) 4.8 % (0.0-12.0); Neutrophils # (auto) 5.6 10 ^3/uL (1.6-8.6); Neutrophils % (auto) 92.2 % (37.0-80.0); Nucleated Red Blood Cells % 0.1 %; Red Blood Cells 3.13 10^6/uL (4.0-5.20); Red Cell Distribution Width 16.6 % (11.8-14.3)
[2021-06-13] MEDS: InsuLIN REG 1unit/0.01ml Soln (100units/ml) SC SCH ×4 (06:23→21:43)
[2021-06-13] MEDS: ACCU-CHEK COMFORT CURVE STRIP VI SCH ×4 (06:23→21:36)
[2021-06-13 06:24] LABS: BUN/Creatinine Ratio 12.4; Calcium 8.9 mg/dL (8.5-10.1); Potassium 4.4 mmol/L (3.5-5.1)
[2021-06-13] MEDS: IPRATROPIUM BROM 0.5 MG/2.5ML INH SOL NEB SCH ×4 (06:36→23:22)
[2021-06-13] MEDS: LEVALBUTEROL HCL 1.25 MG/3 ML NEB NEB SCH ×4 (06:37→23:21)
[2021-06-13] MEDS: ACETYLCYSTEINE 10 %(100MG/ML) SOL 4ML NEB SCH ×4 (06:37→23:22)
[2021-06-13] MEDS: Nepro With Carbsteady ButterPecan 8oz Carton PO SCH ×2 (08:00→17:24)
[2021-06-13] MEDS: CALCIUM ACETATE 667 MG CAP PO SCH ×3 (08:00→17:24)
[2021-06-13 08:54] VITALS: BP 150/73
[2021-06-13] MEDS: amLODIPine BESYLATE 5 MG TAB PO SCH (09:48)
[2021-06-13] MEDS: PANTOPRAZOLE 40 MG/10 ML VIAL INJ IV SCH (09:48)
[2021-06-13] MEDS: methylPREDNISolone SOD SUCC 40 MG/ML VL IV SCH ×2 (09:48→21:51)
[2021-06-13] MEDS: B-COMPLEX W/ C & FOLIC ACID(NEPHROVITE TAB) PO SCH (09:48)
[2021-06-13] MEDS: BISACODYL 5 MG EC TAB PO SCH ×2 (09:48→21:52)
[2021-06-13] MEDS: MEROPENEM 500MG IVPB 50 ML IV SCH ×2 (09:48→21:51)
[2021-06-13] MEDS: SODIUM CHLOR 0.9% PF (SALINE LOCK) 10ML VIAL/SYR IV SCH ×2 (09:48→21:35)
[2021-06-13] MEDS: cloNIDine HCL 0.1 MG TAB PO SCH ×2 (09:48→21:52)
[2021-06-13] MEDS: LIDOCAINE 5% TOPICAL PATCH TOP SCH (09:49)
[2021-06-13] MEDS ORDERED: ENOXAPARIN SOD 80 MG/0.8ML SYRINGE SC SCH (10:00)
[2021-06-13 13:00] VITALS: BP 148/69
[2021-06-13 17:12] VITALS: BP 148/76
[2021-06-13 21:59] VITALS: BP 148/74
[2021-06-14] VITALS (66 sets, daily range): BP systolic 81–142; BP diastolic 44–82
[2021-06-14] MEDS ORDERED: ETOMIDATE (2MG/ML) 20ML VIAL IV ONE (04:18)
[2021-06-14] MEDS ORDERED: SUCCINYLCHOLINE CHLORIDE 20 MG/ML 10ML VIAL IV ONE (04:18)
[2021-06-14] MEDS ORDERED: PROPOFOL 100 ML IV ONE (04:46)
[2021-06-14] MEDS ORDERED: MIDAZOLAM DRIP 50 mg/50mL 50 ML IV ONE (05:36)
[2021-06-14] MEDS ORDERED: NOREPINEPHRINE 8 MG/250ML KIT 250 ML IV ONE (05:37)
[2021-06-14] MEDS: ACETYLCYSTEINE 10 %(100MG/ML) SOL 4ML NEB SCH ×2 (06:30→11:46)
[2021-06-14] MEDS: NOREPINEPHRINE 8 MG/250ML KIT 250 ML IV SCH (06:30)
[2021-06-14] MEDS: LEVALBUTEROL HCL 1.25 MG/3 ML NEB NEB SCH ×4 (06:30→23:38)
[2021-06-14] MEDS: IPRATROPIUM BROM 0.5 MG/2.5ML INH SOL NEB SCH ×4 (06:30→23:37)
[2021-06-14] MEDS ORDERED: SODIUM CHL 0.9% 1000 ML BAG XX ONE (07:00)
[2021-06-14] MEDS: ACCU-CHEK COMFORT CURVE STRIP VI SCH ×4 (07:28→22:05)
[2021-06-14] MEDS: InsuLIN REG 1unit/0.01ml Soln (100units/ml) SC SCH ×4 (07:29→22:00)
[2021-06-14] MEDS: MIDAZOLAM DRIP 50 mg/50mL 50 ML IV SCH (07:30)
[2021-06-14] MEDS: Nepro With Carbsteady ButterPecan 8oz Carton PO SCH (08:00)
[2021-06-14] MEDS: PROPOFOL 100 ML IV SCH ×2 (08:19→12:40)
[2021-06-14] MEDS: CALCIUM ACETATE 667 MG CAP PO SCH ×3 (09:52→19:37)
[2021-06-14] MEDS ORDERED: ENOXAPARIN SOD 80 MG/0.8ML SYRINGE SC SCH (10:00)
[2021-06-14] MEDS: cloNIDine HCL 0.1 MG TAB PO SCH (11:19)
[2021-06-14] MEDS: BISACODYL 5 MG EC TAB PO SCH (11:20)
[2021-06-14] MEDS: ENOXAPARIN SOD 30 MG/0.3 ML SYRINGE SC SCH (12:06)
[2021-06-14] MEDS: PANTOPRAZOLE 40 MG/10 ML VIAL INJ IV SCH (12:06)
[2021-06-14] MEDS: methylPREDNISolone SOD SUCC 40 MG/ML VL IV SCH ×2 (12:06→22:04)
[2021-06-14] MEDS: B-COMPLEX W/ C & FOLIC ACID(NEPHROVITE TAB) PO SCH (12:07)
[2021-06-14] MEDS: SODIUM CHLOR 0.9% PF (SALINE LOCK) 10ML VIAL/SYR IV SCH ×2 (12:07→22:04)
[2021-06-14] MEDS: amLODIPine BESYLATE 5 MG TAB PO SCH (12:07)
[2021-06-14] MEDS: MEROPENEM 500MG IVPB 50 ML IV SCH ×3 (12:40→22:04)
[2021-06-14] MEDS: fentaNYL Drip 2500mCg/250mlNS 250 ML IV SCH (13:13)
[2021-06-14 14:18] LABS: Basophils # (auto) 0 10 ^3/uL (0-0.2); Basophils % (auto) 0.1 % (0.0-2.0); Eosinophils # (auto) 0 10 ^3/uL (0-0.8); Eosinophils % (auto) 0.1 % (0.0-7.0); Hematocrit 27.8 % (36.0-46.0); Hemoglobin 9.4 g/dL (12.2-16.2); Lymphocytes # (auto) 0.5 10 ^3/uL (0.4-5.4); Lymphocytes % (auto) 5.9 % (10.0-50.0); Mean Corpuscular Hemoglobin 29.3 pg (28.0-32.0); Mean Corpuscular Hgb Conc. 33.8 g/dL (32.0-36.0); Mean Corpuscular Volume 86.6 fL (80.0-100.0); Monocytes % (auto) 11.1 % (0.0-12.0); Neutrophils # (auto) 7.2 10 ^3/uL (1.6-8.6); Neutrophils % (auto) 82.8 % (37.0-80.0); Nucleated Red Blood Cells % 0.7 %; Red Blood Cells 3.21 10^6/uL (4.0-5.20); Red Cell Distribution Width 16.9 % (11.8-14.3); White Blood Cell 8.7 10^3/uL (4.4-10.8)
[2021-06-14 14:19] LABS: Calcium 8.4 mg/dL (8.5-10.1); Potassium 3.5 mmol/L (3.5-5.1)
[2021-06-14 14:23] LABS: BUN/Creatinine Ratio 11.6
[2021-06-14] MEDS ORDERED: EPOETIN ALFA-EPBX 10,000 UNIT/1ML VIAL SC ONE (21:00)
[2021-06-15] VITALS (96 sets, daily range): BP systolic 92–155; BP diastolic 44–72
[2021-06-15 04:24] LABS: Eosinophils # (auto) 0 10 ^3/uL (0-0.8); Eosinophils % (auto) 0.1 % (0.0-7.0); Hemoglobin 8.3 g/dL (12.2-16.2); Lymphocytes # (auto) 0.3 10 ^3/uL (0.4-5.4); Monocytes # (auto) 0.3 10 ^3/uL (0-1.3); Red Cell Distribution Width 16.9 % (11.8-14.3)
[2021-06-15 04:26] LABS: Basophils # (auto) 0.1 10 ^3/uL (0-0.2); Basophils % (auto) 0.8 % (0.0-2.0); Hematocrit 24.4 % (36.0-46.0); Lymphocytes % (auto) 3.8 % (10.0-50.0); Mean Corpuscular Hemoglobin 29.4 pg (28.0-32.0); Mean Corpuscular Volume 86.4 fL (80.0-100.0); Monocytes % (auto) 4.1 % (0.0-12.0); Neutrophils # (auto) 6.2 10 ^3/uL (1.6-8.6); Neutrophils % (auto) 91.2 % (37.0-80.0); Nucleated Red Blood Cells % 0.2 %; Red Blood Cells 2.82 10^6/uL (4.0-5.20); White Blood Cell 6.8 10^3/uL (4.4-10.8)
[2021-06-15 04:42] LABS: Albumin 2.1 g/dL (3.4-5.0); BUN/Creatinine Ratio 13.4; Calcium 8.1 mg/dL (8.5-10.1)
[2021-06-15 04:45] LABS: Bilirubin, Total 0.4 mg/dL (0.2-1.0); Total Protein 5.3 g/dL (6.4-8.2)
[2021-06-15] MEDS: InsuLIN REG 1unit/0.01ml Soln (100units/ml) SC SCH ×4 (06:02→22:00)
[2021-06-15] MEDS: ACCU-CHEK COMFORT CURVE STRIP VI SCH ×4 (06:03→22:00)
[2021-06-15] MEDS: NOREPINEPHRINE 8 MG/250ML KIT 250 ML IV SCH (06:07)
[2021-06-15] MEDS: IPRATROPIUM BROM 0.5 MG/2.5ML INH SOL NEB SCH ×3 (06:19→18:16)
[2021-06-15] MEDS: LEVALBUTEROL HCL 1.25 MG/3 ML NEB NEB SCH ×3 (06:19→18:15)
[2021-06-15] MEDS: CALCIUM ACETATE 667 MG CAP PO SCH ×3 (08:37→18:17)
[2021-06-15] MEDS: SODIUM CHLOR 0.9% PF (SALINE LOCK) 10ML VIAL/SYR IV SCH ×2 (10:00→22:00)
[2021-06-15] MEDS: PROPOFOL 100 ML IV SCH ×3 (10:38→19:00)
[2021-06-15] MEDS: MIDAZOLAM DRIP 50 mg/50mL 50 ML IV SCH ×3 (10:41→20:55)
[2021-06-15] MEDS: methylPREDNISolone SOD SUCC 40 MG/ML VL IV SCH ×2 (10:42→22:00)
[2021-06-15] MEDS: PANTOPRAZOLE 40 MG/10 ML VIAL INJ IV SCH (10:42)
[2021-06-15] MEDS: ENOXAPARIN SOD 30 MG/0.3 ML SYRINGE SC SCH (10:42)
[2021-06-15] MEDS: MEROPENEM 500MG IVPB 50 ML IV SCH ×2 (10:43→20:52)
[2021-06-15] MEDS: B-COMPLEX W/ C & FOLIC ACID(NEPHROVITE TAB) PO SCH (10:43)
[2021-06-15] MEDS: fentaNYL Drip 2500mCg/250mlNS 250 ML IV SCH (18:13)
[2021-06-16] VITALS (98 sets, daily range): BP systolic 106–142; BP diastolic 48–76
[2021-06-16] MEDS: IPRATROPIUM BROM 0.5 MG/2.5ML INH SOL NEB SCH ×4 (02:41→18:44)
[2021-06-16] MEDS: LEVALBUTEROL HCL 1.25 MG/3 ML NEB NEB SCH ×4 (02:41→18:44)
[2021-06-16] MEDS: MIDAZOLAM DRIP 50 mg/50mL 50 ML IV SCH ×2 (03:09→22:16)
[2021-06-16] MEDS: PROPOFOL 100 ML IV SCH ×2 (04:28→22:14)
[2021-06-16 04:50] LABS: Hemoglobin 8.4 g/dL (12.2-16.2); INR 0.97 (0.9-1.15)
[2021-06-16 04:54] LABS: Hematocrit 24.7 % (36.0-46.0); Mean Corpuscular Hemoglobin 29.6 pg (28.0-32.0); Mean Corpuscular Hgb Conc. 34.2 g/dL (32.0-36.0); Mean Corpuscular Volume 86.5 fL (80.0-100.0); Red Blood Cells 2.86 10^6/uL (4.0-5.20); Red Cell Distribution Width 17.7 % (11.8-14.3)
[2021-06-16 05:05] LABS: Eosinophils % (manual) 0 (0-7); Lymphocytes % (manual) 0 (10.0-50.0)
[2021-06-16 05:06] LABS: Basophils % (manual) 0 (0.0-2.0); Blast Cells 0; Myelocytes % 0; Promyelocytes % 0; Reactive Lymphocytes 0
[2021-06-16] MEDS: InsuLIN REG 1unit/0.01ml Soln (100units/ml) SC SCH ×4 (05:14→22:00)
[2021-06-16 05:32] LABS: Albumin 2.3 g/dL (3.4-5.0); Calcium 8.7 mg/dL (8.5-10.1); Potassium 4.3 mmol/L (3.5-5.1)
[2021-06-16 05:35] LABS: BUN/Creatinine Ratio 15.7
[2021-06-16 05:37] LABS: Bilirubin, Total 0.5 mg/dL (0.2-1.0); Total Protein 5.4 g/dL (6.4-8.2)
[2021-06-16 06:45] LABS: Band Neutrophils % (manual) 4; Metamyelocytes % 1; Monocytes % (manual) 2 (0-12)
[2021-06-16] MEDS: ACCU-CHEK COMFORT CURVE STRIP VI SCH ×4 (07:00→22:17)
[2021-06-16] MEDS: NOREPINEPHRINE 8 MG/250ML KIT 250 ML IV SCH (07:54)
[2021-06-16] MEDS: CALCIUM ACETATE 667 MG CAP PO SCH ×3 (08:01→18:00)
[2021-06-16] MEDS: MEROPENEM 500MG IVPB 50 ML IV SCH ×2 (10:08→21:43)
[2021-06-16] MEDS: methylPREDNISolone SOD SUCC 40 MG/ML VL IV SCH ×2 (10:08→21:43)
[2021-06-16] MEDS: ENOXAPARIN SOD 30 MG/0.3 ML SYRINGE SC SCH (10:08)
[2021-06-16] MEDS: PANTOPRAZOLE 40 MG/10 ML VIAL INJ IV SCH (10:08)
[2021-06-16] MEDS: B-COMPLEX W/ C & FOLIC ACID(NEPHROVITE TAB) PO SCH (10:09)
[2021-06-16] MEDS: SODIUM CHLOR 0.9% PF (SALINE LOCK) 10ML VIAL/SYR IV SCH ×2 (10:09→21:43)
[2021-06-16] MEDS: fentaNYL Drip 2500mCg/250mlNS 250 ML IV SCH (12:30)
[2021-06-17] VITALS (102 sets, daily range): BP systolic 118–152; BP diastolic 50–80
[2021-06-17] MEDS: PROPOFOL 100 ML IV SCH (02:56)
[2021-06-17] MEDS: MIDAZOLAM DRIP 50 mg/50mL 50 ML IV SCH (05:32)
[2021-06-17] MEDS: ACCU-CHEK COMFORT CURVE STRIP VI SCH ×4 (05:33→22:05)
[2021-06-17] MEDS: InsuLIN REG 1unit/0.01ml Soln (100units/ml) SC SCH ×4 (05:33→22:00)
[2021-06-17] MEDS: LEVALBUTEROL HCL 1.25 MG/3 ML NEB NEB SCH ×4 (06:26→18:15)
[2021-06-17] MEDS: IPRATROPIUM BROM 0.5 MG/2.5ML INH SOL NEB SCH ×4 (06:26→18:15)
[2021-06-17] MEDS: NOREPINEPHRINE 8 MG/250ML KIT 250 ML IV SCH (06:30)
[2021-06-17 07:21] LABS: Albumin 2.2 g/dL (3.4-5.0); Potassium 4.9 mmol/L (3.5-5.1)
[2021-06-17 07:28] LABS: Bilirubin, Total 0.5 mg/dL (0.2-1.0); Calcium 8.5 mg/dL (8.5-10.1); Total Protein 5.2 g/dL (6.4-8.2)
[2021-06-17 07:45] LABS: Hemoglobin 8.1 g/dL (12.2-16.2); White Blood Cell 5.2 10^3/uL (4.4-10.8)
[2021-06-17 07:46] LABS: Hematocrit 24.6 % (36.0-46.0); Mean Corpuscular Hemoglobin 28.5 pg (28.0-32.0); Mean Corpuscular Hgb Conc. 32.8 g/dL (32.0-36.0); Mean Corpuscular Volume 86.9 fL (80.0-100.0); Red Blood Cells 2.83 10^6/uL (4.0-5.20); Red Cell Distribution Width 17.9 % (11.8-14.3)
[2021-06-17 08:00] LABS: Basophils % (manual) 0 (0.0-2.0); Blast Cells 0; Eosinophils % (manual) 0 (0-7); Myelocytes % 0; Promyelocytes % 0; Reactive Lymphocytes 0
[2021-06-17] MEDS: CALCIUM ACETATE 667 MG CAP PO SCH ×3 (08:00→18:00)
[2021-06-17 08:31] LABS: Band Neutrophils % (manual) 7; Lymphocytes % (manual) 5 (10.0-50.0); Metamyelocytes % 2; Monocytes % (manual) 8 (0-12)
[2021-06-17] MEDS ORDERED: Nepro With Carb Steady 1 Liter Bottle GT SCH (10:00)
[2021-06-17] MEDS: methylPREDNISolone SOD SUCC 40 MG/ML VL IV SCH ×2 (10:27→22:05)
[2021-06-17] MEDS: MEROPENEM 500MG IVPB 50 ML IV SCH ×2 (10:28→22:04)
[2021-06-17] MEDS: PANTOPRAZOLE 40 MG/10 ML VIAL INJ IV SCH (10:28)
[2021-06-17] MEDS: ENOXAPARIN SOD 30 MG/0.3 ML SYRINGE SC SCH (10:28)
[2021-06-17] MEDS: B-COMPLEX W/ C & FOLIC ACID(NEPHROVITE TAB) PO SCH (10:28)
[2021-06-17] MEDS: SODIUM CHLOR 0.9% PF (SALINE LOCK) 10ML VIAL/SYR IV SCH ×2 (10:28→22:05)
[2021-06-17] MEDS: fentaNYL Drip 2500mCg/250mlNS 250 ML IV SCH (12:30)
[2021-06-18] VITALS (96 sets, daily range): BP systolic 102–151; BP diastolic 54–94
[2021-06-18] MEDS: LEVALBUTEROL HCL 1.25 MG/3 ML NEB NEB SCH ×4 (02:04→18:12)
[2021-06-18] MEDS: IPRATROPIUM BROM 0.5 MG/2.5ML INH SOL NEB SCH ×4 (02:04→18:12)
[2021-06-18] MEDS: NOREPINEPHRINE 8 MG/250ML KIT 250 ML IV SCH (06:30)
[2021-06-18] MEDS: ACCU-CHEK COMFORT CURVE STRIP VI SCH ×3 (07:00→17:00)
[2021-06-18] MEDS: InsuLIN REG 1unit/0.01ml Soln (100units/ml) SC SCH ×3 (07:00→17:00)
[2021-06-18] MEDS: PROPOFOL 100 ML IV SCH (07:55)
[2021-06-18] MEDS: MIDAZOLAM DRIP 50 mg/50mL 50 ML IV SCH (08:15)
[2021-06-18] MEDS: CALCIUM ACETATE 667 MG CAP PO SCH ×3 (08:22→18:27)
[2021-06-18] MEDS: PANTOPRAZOLE 40 MG/10 ML VIAL INJ IV SCH (10:00)
[2021-06-18] MEDS: SODIUM CHLOR 0.9% PF (SALINE LOCK) 10ML VIAL/SYR IV SCH ×2 (10:45→22:00)
[2021-06-18] MEDS: MEROPENEM 500MG IVPB 50 ML IV SCH ×2 (10:45→12:58)
[2021-06-18] MEDS: B-COMPLEX W/ C & FOLIC ACID(NEPHROVITE TAB) PO SCH (10:46)
[2021-06-18] MEDS: ENOXAPARIN SOD 30 MG/0.3 ML SYRINGE SC SCH (10:46)
[2021-06-18] MEDS: methylPREDNISolone SOD SUCC 40 MG/ML VL IV SCH ×2 (10:46→22:00)
[2021-06-18] MEDS: fentaNYL Drip 2500mCg/250mlNS 250 ML IV SCH (12:30)
[2021-06-19] VITALS (88 sets, daily range): BP systolic 103–161; BP diastolic 45–85
[2021-06-19] MEDS: LEVALBUTEROL HCL 1.25 MG/3 ML NEB NEB SCH ×4 (02:08→18:18)
[2021-06-19] MEDS: IPRATROPIUM BROM 0.5 MG/2.5ML INH SOL NEB SCH ×4 (02:08→18:18)
[2021-06-19 04:43] LABS: Albumin 2.1 g/dL (3.4-5.0); Calcium 7.7 mg/dL (8.5-10.1); Potassium 5.2 mmol/L (3.5-5.1)
[2021-06-19 04:47] LABS: BUN/Creatinine Ratio 17.8; Bilirubin, Total 0.5 mg/dL (0.2-1.0)
[2021-06-19] MEDS: ACCU-CHEK COMFORT CURVE STRIP VI SCH ×5 (06:37→22:20)
[2021-06-19] MEDS: InsuLIN REG 1unit/0.01ml Soln (100units/ml) SC SCH ×5 (06:38→22:00)
[2021-06-19] MEDS ORDERED: SODIUM CHL 0.9% 1000 ML BAG XX ONE (07:00)
[2021-06-19] MEDS: PROPOFOL 100 ML IV SCH ×2 (07:44→22:20)
[2021-06-19] MEDS: NOREPINEPHRINE 8 MG/250ML KIT 250 ML IV SCH (07:44)
[2021-06-19] MEDS: MIDAZOLAM DRIP 50 mg/50mL 50 ML IV SCH (07:45)
[2021-06-19] MEDS: MEROPENEM 500MG IVPB 50 ML IV SCH ×2 (10:20→22:27)
[2021-06-19] MEDS: CALCIUM ACETATE 667 MG CAP PO SCH ×3 (10:20→18:11)
[2021-06-19] MEDS: PANTOPRAZOLE 40 MG/10 ML VIAL INJ IV SCH (10:20)
[2021-06-19] MEDS: SODIUM CHLOR 0.9% PF (SALINE LOCK) 10ML VIAL/SYR IV SCH ×2 (10:20→22:27)
[2021-06-19] MEDS: ENOXAPARIN SOD 30 MG/0.3 ML SYRINGE SC SCH (10:21)
[2021-06-19] MEDS: methylPREDNISolone SOD SUCC 40 MG/ML VL IV SCH ×2 (10:21→22:27)
[2021-06-19] MEDS: B-COMPLEX W/ C & FOLIC ACID(NEPHROVITE TAB) PO SCH (10:21)
[2021-06-19] MEDS ORDERED: Nepro With Carb Steady 1 Liter Bottle GT SCH (12:00)
[2021-06-19] MEDS: fentaNYL Drip 2500mCg/250mlNS 250 ML IV SCH (12:41)
[2021-06-19] MEDS ORDERED: EPOETIN ALFA-EPBX 10,000 UNIT/1ML VIAL SC ONE (21:00)
[2021-06-20] VITALS (88 sets, daily range): BP systolic 130–174; BP diastolic 57–89
[2021-06-20] MEDS: IPRATROPIUM BROM 0.5 MG/2.5ML INH SOL NEB SCH ×4 (00:07→18:17)
[2021-06-20] MEDS: LEVALBUTEROL HCL 1.25 MG/3 ML NEB NEB SCH ×4 (00:07→18:17)
[2021-06-20] MEDS: PROPOFOL 100 ML IV SCH ×2 (04:48→12:00)
[2021-06-20 05:43] LABS: Hematocrit 27.9 % (36.0-46.0); Hemoglobin 9.2 g/dL (12.2-16.2); Mean Corpuscular Hemoglobin 28.6 pg (28.0-32.0); Mean Corpuscular Volume 86.7 fL (80.0-100.0); Red Blood Cells 3.21 10^6/uL (4.0-5.20); Red Cell Distribution Width 19.1 % (11.8-14.3); White Blood Cell 8.3 10^3/uL (4.4-10.8)
[2021-06-20 06:23] LABS: Basophils % (manual) 0 (0.0-2.0); Blast Cells 0; Eosinophils % (manual) 0 (0-7); Promyelocytes % 0; Reactive Lymphocytes 0
[2021-06-20] MEDS: NOREPINEPHRINE 8 MG/250ML KIT 250 ML IV SCH (06:30)
[2021-06-20] MEDS: InsuLIN REG 1unit/0.01ml Soln (100units/ml) SC SCH ×4 (07:00→22:00)
[2021-06-20] MEDS: ACCU-CHEK COMFORT CURVE STRIP VI SCH ×4 (07:25→22:29)
[2021-06-20] MEDS: MIDAZOLAM DRIP 50 mg/50mL 50 ML IV SCH (07:55)
[2021-06-20 08:49] LABS: Band Neutrophils % (manual) 6; Lymphocytes % (manual) 3 (10.0-50.0); Metamyelocytes % 3; Monocytes % (manual) 6 (0-12); Myelocytes % 3
[2021-06-20] MEDS: CALCIUM ACETATE 667 MG CAP PO SCH ×3 (09:54→18:03)
[2021-06-20] MEDS: SODIUM CHLOR 0.9% PF (SALINE LOCK) 10ML VIAL/SYR IV SCH ×2 (11:13→22:28)
[2021-06-20] MEDS: methylPREDNISolone SOD SUCC 40 MG/ML VL IV SCH ×2 (11:28→22:28)
[2021-06-20] MEDS: MEROPENEM 500MG IVPB 50 ML IV SCH ×2 (11:28→22:27)
[2021-06-20] MEDS: PANTOPRAZOLE 40 MG/10 ML VIAL INJ IV SCH (11:28)
[2021-06-20] MEDS: ENOXAPARIN SOD 30 MG/0.3 ML SYRINGE SC SCH (11:29)
[2021-06-20] MEDS: B-COMPLEX W/ C & FOLIC ACID(NEPHROVITE TAB) PO SCH (11:29)
[2021-06-20 12:21] LABS: Calcium 7.7 mg/dL (8.5-10.1); Potassium 3.5 mmol/L (3.5-5.1)
[2021-06-20 12:24] LABS: BUN/Creatinine Ratio 14.3; Bilirubin, Total 0.4 mg/dL (0.2-1.0); Total Protein 4.9 g/dL (6.4-8.2)
[2021-06-20] MEDS: fentaNYL Drip 2500mCg/250mlNS 250 ML IV SCH (13:50)
[2021-06-21] VITALS (97 sets, daily range): BP systolic 91–186; BP diastolic 48–108
[2021-06-21] MEDS: LEVALBUTEROL HCL 1.25 MG/3 ML NEB NEB SCH ×4 (01:58→18:21)
[2021-06-21] MEDS: IPRATROPIUM BROM 0.5 MG/2.5ML INH SOL NEB SCH ×4 (01:58→18:21)
[2021-06-21 04:55] LABS: Hematocrit 29.4 % (36.0-46.0); Hemoglobin 9.7 g/dL (12.2-16.2); Mean Corpuscular Hemoglobin 29.4 pg (28.0-32.0); Mean Corpuscular Hgb Conc. 32.8 g/dL (32.0-36.0); Mean Corpuscular Volume 89.5 fL (80.0-100.0); Red Blood Cells 3.29 10^6/uL (4.0-5.20); Red Cell Distribution Width 18.8 % (11.8-14.3); White Blood Cell 9.5 10^3/uL (4.4-10.8)
[2021-06-21 05:14] LABS: Albumin 2.1 g/dL (3.4-5.0); BUN/Creatinine Ratio 15.2; Calcium 8.1 mg/dL (8.5-10.1); Potassium 4.6 mmol/L (3.5-5.1)
[2021-06-21 05:16] LABS: Bilirubin, Total 0.4 mg/dL (0.2-1.0); Total Protein 5.4 g/dL (6.4-8.2)
[2021-06-21 05:49] LABS: Basophils % (manual) 0 (0.0-2.0); Blast Cells 0; Eosinophils % (manual) 0 (0-7); Metamyelocytes % 0; Myelocytes % 0; Promyelocytes % 0; Reactive Lymphocytes 0
[2021-06-21] MEDS: ACCU-CHEK COMFORT CURVE STRIP VI SCH ×4 (05:58→21:31)
[2021-06-21] MEDS: InsuLIN REG 1unit/0.01ml Soln (100units/ml) SC SCH ×4 (05:59→21:31)
[2021-06-21] MEDS: PROPOFOL 100 ML IV SCH (06:30)
[2021-06-21] MEDS: NOREPINEPHRINE 8 MG/250ML KIT 250 ML IV SCH (06:30)
[2021-06-21] MEDS ORDERED: SODIUM CHL 0.9% 1000 ML BAG XX ONE (07:00)
[2021-06-21] MEDS: MIDAZOLAM DRIP 50 mg/50mL 50 ML IV SCH (07:30)
[2021-06-21] MEDS: CALCIUM ACETATE 667 MG CAP PO SCH ×3 (08:00→17:07)
[2021-06-21 08:58] LABS: Band Neutrophils % (manual) 4; Lymphocytes % (manual) 5 (10.0-50.0); Monocytes % (manual) 3 (0-12)
[2021-06-21] MEDS: B-COMPLEX W/ C & FOLIC ACID(NEPHROVITE TAB) PO SCH (10:00)
[2021-06-21] MEDS: ENOXAPARIN SOD 30 MG/0.3 ML SYRINGE SC SCH (10:00)
[2021-06-21] MEDS: SODIUM CHLOR 0.9% PF (SALINE LOCK) 10ML VIAL/SYR IV SCH ×2 (10:00→21:30)
[2021-06-21] MEDS: PANTOPRAZOLE 40 MG/10 ML VIAL INJ IV SCH (10:00)
[2021-06-21] MEDS: methylPREDNISolone SOD SUCC 40 MG/ML VL IV SCH ×2 (10:00→21:30)
[2021-06-21] MEDS: MEROPENEM 500MG IVPB 50 ML IV SCH ×2 (10:00→21:30)
[2021-06-21] MEDS ORDERED: CARVEDILOL 3.125 MG TAB PO ONE (11:45)
[2021-06-21] MEDS: LABETALOL HCL 5 MG/ML 4ML SYRINGE IV PRN (12:14)
[2021-06-21 14:43] LABS: Magnesium 2.4 mg/dL (1.6-2.6); Potassium 3.7 mmol/L (3.5-5.1)
[2021-06-21] MEDS: fentaNYL Drip 2500mCg/250mlNS 250 ML IV SCH (16:25)
[2021-06-21] MEDS ORDERED: EPOETIN ALFA-EPBX 10,000 UNIT/1ML VIAL SC ONE (21:00)
[2021-06-21] MEDS ORDERED: CARVEDILOL 3.125 MG TAB PO SCH (22:00)
[2021-06-22] VITALS (99 sets, daily range): BP systolic 85–190; BP diastolic 56–84
[2021-06-22] MEDS: LEVALBUTEROL HCL 1.25 MG/3 ML NEB NEB SCH ×4 (00:10→18:07)
[2021-06-22] MEDS: IPRATROPIUM BROM 0.5 MG/2.5ML INH SOL NEB SCH ×4 (00:10→18:07)
[2021-06-22 04:15] LABS: Basophils # (auto) 0 10 ^3/uL (0-0.2); Basophils % (auto) 0.2 % (0.0-2.0); Eosinophils # (auto) 0.1 10 ^3/uL (0-0.8); Eosinophils % (auto) 0.7 % (0.0-7.0); Hemoglobin 9.8 g/dL (12.2-16.2); Lymphocytes # (auto) 0.6 10 ^3/uL (0.4-5.4); Lymphocytes % (auto) 5.4 % (10.0-50.0); Mean Corpuscular Hemoglobin 28.9 pg (28.0-32.0); Mean Corpuscular Hgb Conc. 32.7 g/dL (32.0-36.0); Mean Corpuscular Volume 88.4 fL (80.0-100.0); Monocytes # (auto) 0.7 10 ^3/uL (0-1.3); Monocytes % (auto) 5.9 % (0.0-12.0); Neutrophils # (auto) 10.6 10 ^3/uL (1.6-8.6); Neutrophils % (auto) 87.8 % (37.0-80.0); Nucleated Red Blood Cells % 0.1 %; Red Blood Cells 3.39 10^6/uL (4.0-5.20); Red Cell Distribution Width 18.9 % (11.8-14.3)
[2021-06-22 04:38] LABS: Albumin 2.1 g/dL (3.4-5.0); BUN/Creatinine Ratio 13.7; Calcium 7.9 mg/dL (8.5-10.1); Magnesium 2.4 mg/dL (1.6-2.6); Potassium 4.6 mmol/L (3.5-5.1)
[2021-06-22 04:47] LABS: Bilirubin, Total 0.5 mg/dL (0.2-1.0); Total Protein 5.4 g/dL (6.4-8.2)
[2021-06-22] MEDS: NOREPINEPHRINE 8 MG/250ML KIT 250 ML IV SCH (06:30)
[2021-06-22] MEDS: ACCU-CHEK COMFORT CURVE STRIP VI SCH ×4 (06:37→22:13)
[2021-06-22] MEDS: InsuLIN REG 1unit/0.01ml Soln (100units/ml) SC SCH ×4 (06:37→22:00)
[2021-06-22] MEDS: MIDAZOLAM DRIP 50 mg/50mL 50 ML IV SCH (07:30)
[2021-06-22] MEDS: CALCIUM ACETATE 667 MG CAP PO SCH ×3 (08:00→18:00)
[2021-06-22] MEDS: PROPOFOL 100 ML IV SCH ×3 (09:19→22:15)
[2021-06-22] MEDS: PANTOPRAZOLE 40 MG/10 ML VIAL INJ IV SCH (09:55)
[2021-06-22] MEDS: BUMETANIDE 2.5mg/10ml (0.25 mg/ml) INJ IV SCH (09:55)
[2021-06-22] MEDS: methylPREDNISolone SOD SUCC 40 MG/ML VL IV SCH ×2 (09:55→22:13)
[2021-06-22] MEDS: ENOXAPARIN SOD 30 MG/0.3 ML SYRINGE SC SCH (09:55)
[2021-06-22] MEDS: SODIUM CHLOR 0.9% PF (SALINE LOCK) 10ML VIAL/SYR IV SCH ×2 (09:56→22:12)
[2021-06-22] MEDS: CARVEDILOL 3.125 MG TAB PO SCH ×3 (09:56→22:13)
[2021-06-22] MEDS: B-COMPLEX W/ C & FOLIC ACID(NEPHROVITE TAB) PO SCH (09:56)
[2021-06-22] MEDS: amLODIPine BESYLATE 5 MG TAB PO SCH (09:57)
[2021-06-22] MEDS: MEROPENEM 500MG IVPB 50 ML IV SCH ×2 (09:58→22:12)
[2021-06-22] MEDS: fentaNYL Drip 2500mCg/250mlNS 250 ML IV SCH (15:02)
[2021-06-23] VITALS (102 sets, daily range): BP systolic 98–182; BP diastolic 45–92
[2021-06-23] MEDS: IPRATROPIUM BROM 0.5 MG/2.5ML INH SOL NEB SCH ×4 (02:06→18:04)
[2021-06-23] MEDS: LEVALBUTEROL HCL 1.25 MG/3 ML NEB NEB SCH ×4 (02:06→18:04)
[2021-06-23] MEDS: fentaNYL Drip 2500mCg/250mlNS 250 ML IV SCH ×2 (03:22→15:48)
[2021-06-23] MEDS: PROPOFOL 100 ML IV SCH ×3 (03:23→19:20)
[2021-06-23 03:54] LABS: Basophils # (auto) 0 10 ^3/uL (0-0.2); Basophils % (auto) 0.3 % (0.0-2.0); Eosinophils # (auto) 0.1 10 ^3/uL (0-0.8); Eosinophils % (auto) 0.7 % (0.0-7.0); Hematocrit 28.6 % (36.0-46.0); Hemoglobin 9.6 g/dL (12.2-16.2); Lymphocytes # (auto) 0.9 10 ^3/uL (0.4-5.4); Lymphocytes % (auto) 8.5 % (10.0-50.0); Mean Corpuscular Hemoglobin 29.5 pg (28.0-32.0); Mean Corpuscular Hgb Conc. 33.7 g/dL (32.0-36.0); Mean Corpuscular Volume 87.7 fL (80.0-100.0); Monocytes # (auto) 0.7 10 ^3/uL (0-1.3); Monocytes % (auto) 6.8 % (0.0-12.0); Neutrophils # (auto) 8.5 10 ^3/uL (1.6-8.6); Neutrophils % (auto) 83.7 % (37.0-80.0); Red Blood Cells 3.26 10^6/uL (4.0-5.20); Red Cell Distribution Width 18.6 % (11.8-14.3); White Blood Cell 10.1 10^3/uL (4.4-10.8)
[2021-06-23 04:24] LABS: Calcium 7.8 mg/dL (8.5-10.1)
[2021-06-23 04:27] LABS: Bilirubin, Total 0.4 mg/dL (0.2-1.0); Total Protein 5.4 g/dL (6.4-8.2)
[2021-06-23 04:30] LABS: BUN/Creatinine Ratio 14.1
[2021-06-23] MEDS: InsuLIN REG 1unit/0.01ml Soln (100units/ml) SC SCH ×4 (06:10→22:00)
[2021-06-23] MEDS: ACCU-CHEK COMFORT CURVE STRIP VI SCH ×4 (06:10→22:14)
[2021-06-23] MEDS: MIDAZOLAM DRIP 50 mg/50mL 50 ML IV SCH (07:30)
[2021-06-23] MEDS: CALCIUM ACETATE 667 MG CAP PO SCH ×3 (08:00→17:37)
[2021-06-23] MEDS: NOREPINEPHRINE 8 MG/250ML KIT 250 ML IV SCH (09:00)
[2021-06-23] MEDS: ENOXAPARIN SOD 30 MG/0.3 ML SYRINGE SC SCH (09:44)
[2021-06-23] MEDS: BUMETANIDE 2.5mg/10ml (0.25 mg/ml) INJ IV SCH (09:44)
[2021-06-23] MEDS: PANTOPRAZOLE 40 MG/10 ML VIAL INJ IV SCH (09:44)
[2021-06-23] MEDS: methylPREDNISolone SOD SUCC 40 MG/ML VL IV SCH ×2 (09:45→21:56)
[2021-06-23] MEDS: B-COMPLEX W/ C & FOLIC ACID(NEPHROVITE TAB) PO SCH (09:45)
[2021-06-23] MEDS: CARVEDILOL 3.125 MG TAB PO SCH ×2 (09:45→21:57)
[2021-06-23] MEDS: amLODIPine BESYLATE 5 MG TAB PO SCH ×2 (09:46→12:52)
[2021-06-23] MEDS: SODIUM CHLOR 0.9% PF (SALINE LOCK) 10ML VIAL/SYR IV SCH ×2 (09:46→21:56)
[2021-06-23] MEDS: MEROPENEM 500MG IVPB 50 ML IV SCH ×2 (10:31→22:14)
[2021-06-23] MEDS: DEXTROSE (50%) 50ML SYRG IV PRN ×2 (11:22→22:16)
[2021-06-23] MEDS: METOCLOPRAMIDE HCL 10 MG TAB PO SCH ×2 (12:50→21:57)
[2021-06-23] MEDS: hydrALAZINE HCL 20 MG/ML VL IV PRN (13:26)
[2021-06-24] VITALS (60 sets, daily range): BP systolic 114–177; BP diastolic 59–101
[2021-06-24] MEDS: LEVALBUTEROL HCL 1.25 MG/3 ML NEB NEB SCH ×4 (01:47→19:48)
[2021-06-24] MEDS: IPRATROPIUM BROM 0.5 MG/2.5ML INH SOL NEB SCH ×4 (01:47→19:48)
[2021-06-24 04:26] LABS: Albumin 2.1 g/dL (3.4-5.0); BUN/Creatinine Ratio 14.5; Calcium 7.8 mg/dL (8.5-10.1); Potassium 4.1 mmol/L (3.5-5.1)
[2021-06-24 04:29] LABS: Bilirubin, Total 0.5 mg/dL (0.2-1.0); Total Protein 5.3 g/dL (6.4-8.2)
[2021-06-24] MEDS: PROPOFOL 100 ML IV SCH ×4 (06:00→22:13)
[2021-06-24] MEDS: hydrALAZINE HCL 20 MG/ML VL IV PRN (06:15)
[2021-06-24] MEDS: METOCLOPRAMIDE HCL 10 MG TAB PO SCH ×3 (06:22→22:04)
[2021-06-24] MEDS: ACCU-CHEK COMFORT CURVE STRIP VI SCH ×4 (06:23→22:00)
[2021-06-24] MEDS: InsuLIN REG 1unit/0.01ml Soln (100units/ml) SC SCH ×4 (06:24→22:00)
[2021-06-24] MEDS: NOREPINEPHRINE 8 MG/250ML KIT 250 ML IV SCH (06:25)
[2021-06-24] MEDS: fentaNYL Drip 2500mCg/250mlNS 250 ML IV SCH ×2 (06:27→20:42)
[2021-06-24] MEDS ORDERED: SODIUM CHL 0.9% 1000 ML BAG XX ONE (07:00)
[2021-06-24] MEDS: MIDAZOLAM DRIP 50 mg/50mL 50 ML IV SCH (07:30)
[2021-06-24] MEDS: CALCIUM ACETATE 667 MG CAP PO SCH ×3 (08:00→18:00)
[2021-06-24] MEDS: B-COMPLEX W/ C & FOLIC ACID(NEPHROVITE TAB) PO SCH (09:51)
[2021-06-24] MEDS: PANTOPRAZOLE 40 MG/10 ML VIAL INJ IV SCH (09:52)
[2021-06-24] MEDS: BUMETANIDE 2.5mg/10ml (0.25 mg/ml) INJ IV SCH (09:52)
[2021-06-24] MEDS: MEROPENEM 500MG IVPB 50 ML IV SCH ×2 (09:52→22:04)
[2021-06-24] MEDS: ENOXAPARIN SOD 30 MG/0.3 ML SYRINGE SC SCH (09:53)
[2021-06-24] MEDS: methylPREDNISolone SOD SUCC 40 MG/ML VL IV SCH ×2 (09:53→22:03)
[2021-06-24] MEDS: SODIUM CHLOR 0.9% PF (SALINE LOCK) 10ML VIAL/SYR IV SCH ×2 (10:00→22:12)
[2021-06-24] MEDS ORDERED: AZITHROMYCIN 500MG/ 250ML 250 ML IV SCH (10:00)
[2021-06-24] MEDS: CARVEDILOL 3.125 MG TAB PO SCH ×2 (10:00→22:03)
[2021-06-24] MEDS: amLODIPine BESYLATE 5 MG TAB PO SCH (10:00)
[2021-06-24] MEDS ORDERED: EPOETIN ALFA-EPBX 10,000 UNIT/1ML VIAL SC ONE (21:00)
[2021-06-25] VITALS (47 sets, daily range): BP systolic 103–191; BP diastolic 22–108
[2021-06-25] MEDS: LEVALBUTEROL HCL 1.25 MG/3 ML NEB NEB SCH ×4 (00:52→18:18)
[2021-06-25] MEDS: IPRATROPIUM BROM 0.5 MG/2.5ML INH SOL NEB SCH ×4 (00:52→18:18)
[2021-06-25] MEDS: PROPOFOL 100 ML IV SCH ×2 (02:04→06:33)
[2021-06-25 04:57] LABS: Hematocrit 32.3 % (36.0-46.0); Hemoglobin 10.6 g/dL (12.2-16.2); Mean Corpuscular Hemoglobin 28.5 pg (28.0-32.0); Mean Corpuscular Hgb Conc. 32.9 g/dL (32.0-36.0); Mean Corpuscular Volume 86.7 fL (80.0-100.0); Red Blood Cells 3.72 10^6/uL (4.0-5.20); Red Cell Distribution Width 18.8 % (11.8-14.3); White Blood Cell 11.2 10^3/uL (4.4-10.8)
[2021-06-25 05:34] LABS: Basophils % (manual) 0 (0.0-2.0); Blast Cells 0; Eosinophils % (manual) 0 (0-7); Metamyelocytes % 0; Myelocytes % 0; Promyelocytes % 0; Reactive Lymphocytes 0
[2021-06-25] MEDS ORDERED: SODIUM CHLORIDE 0.9% 1,000 ML IV ONE (05:45)
[2021-06-25] MEDS: METOCLOPRAMIDE HCL 10 MG TAB PO SCH ×3 (06:00→23:01)
[2021-06-25] MEDS: NOREPINEPHRINE 8 MG/250ML KIT 250 ML IV SCH (06:30)
[2021-06-25] MEDS: InsuLIN REG 1unit/0.01ml Soln (100units/ml) SC SCH ×4 (06:33→23:28)
[2021-06-25] MEDS: fentaNYL Drip 2500mCg/250mlNS 250 ML IV SCH (06:38)
[2021-06-25] MEDS: ACCU-CHEK COMFORT CURVE STRIP VI SCH ×4 (06:55→23:28)
[2021-06-25] MEDS: MIDAZOLAM DRIP 50 mg/50mL 50 ML IV SCH (07:49)
[2021-06-25 08:27] LABS: Band Neutrophils % (manual) 3; Lymphocytes % (manual) 9 (10.0-50.0); Monocytes % (manual) 6 (0-12)
[2021-06-25] MEDS: hydrALAZINE HCL 20 MG/ML VL IV PRN ×2 (08:45→23:04)
[2021-06-25] MEDS: CALCIUM ACETATE 667 MG CAP PO SCH ×3 (09:10→18:00)
[2021-06-25] MEDS: B-COMPLEX W/ C & FOLIC ACID(NEPHROVITE TAB) PO SCH (09:11)
[2021-06-25] MEDS: BUMETANIDE 2.5mg/10ml (0.25 mg/ml) INJ IV SCH (10:00)
[2021-06-25] MEDS: SODIUM CHLOR 0.9% PF (SALINE LOCK) 10ML VIAL/SYR IV SCH ×2 (10:06→22:59)
[2021-06-25] MEDS: MEROPENEM 500MG IVPB 50 ML IV SCH ×2 (10:37→22:59)
[2021-06-25] MEDS: PANTOPRAZOLE 40 MG/10 ML VIAL INJ IV SCH (10:37)
[2021-06-25] MEDS: ENOXAPARIN SOD 30 MG/0.3 ML SYRINGE SC SCH (10:38)
[2021-06-25] MEDS: methylPREDNISolone SOD SUCC 40 MG/ML VL IV SCH ×2 (10:38→23:00)
[2021-06-25] MEDS: amLODIPine BESYLATE 5 MG TAB PO SCH (11:33)
[2021-06-25] MEDS: CARVEDILOL 3.125 MG TAB PO SCH ×2 (11:33→22:00)
[2021-06-25] MEDS: LABETALOL HCL 5 MG/ML 4ML SYRINGE IV PRN (13:24)
[2021-06-25 15:56] LABS: Albumin 2.2 g/dL (3.4-5.0); BUN/Creatinine Ratio 12.1; Calcium 8.1 mg/dL (8.5-10.1); Potassium 3.5 mmol/L (3.5-5.1)
[2021-06-25 15:59] LABS: Bilirubin, Total 0.4 mg/dL (0.2-1.0); Total Protein 5.6 g/dL (6.4-8.2)
[2021-06-26] VITALS (23 sets, daily range): BP systolic 123–194; BP diastolic 57–99
[2021-06-26] MEDS: METOCLOPRAMIDE HCL 10 MG TAB PO SCH ×2 (06:00→14:00)
[2021-06-26] MEDS: LEVALBUTEROL HCL 1.25 MG/3 ML NEB NEB SCH ×4 (06:01→23:14)
[2021-06-26] MEDS: IPRATROPIUM BROM 0.5 MG/2.5ML INH SOL NEB SCH ×4 (06:01→23:14)
[2021-06-26] MEDS: ACCU-CHEK COMFORT CURVE STRIP VI SCH ×4 (06:13→22:00)
[2021-06-26 06:32] LABS: Hematocrit 34.4 % (36.0-46.0); Hemoglobin 11.3 g/dL (12.2-16.2); Mean Corpuscular Hemoglobin 28.8 pg (28.0-32.0); Mean Corpuscular Hgb Conc. 32.7 g/dL (32.0-36.0); Mean Corpuscular Volume 87.9 fL (80.0-100.0); Red Blood Cells 3.92 10^6/uL (4.0-5.20); Red Cell Distribution Width 19.3 % (11.8-14.3); White Blood Cell 12.7 10^3/uL (4.4-10.8)
[2021-06-26 06:34] LABS: Potassium 4.9 mmol/L (3.5-5.1)
[2021-06-26] MEDS: InsuLIN REG 1unit/0.01ml Soln (100units/ml) SC SCH ×4 (06:34→22:00)
[2021-06-26 06:42] LABS: Albumin 2.3 g/dL (3.4-5.0); BUN/Creatinine Ratio 13.2; Bilirubin, Total 0.4 mg/dL (0.2-1.0); Calcium 8.6 mg/dL (8.5-10.1); Total Protein 6.5 g/dL (6.4-8.2)
[2021-06-26 06:50] LABS: Basophils % (manual) 0 (0.0-2.0); Blast Cells 0; Eosinophils % (manual) 0 (0-7); Metamyelocytes % 0; Myelocytes % 0; Promyelocytes % 0; Reactive Lymphocytes 0
[2021-06-26] MEDS ORDERED: SODIUM CHL 0.9% 1000 ML BAG XX ONE (07:00)
[2021-06-26 07:42] LABS: Band Neutrophils % (manual) 4; Lymphocytes % (manual) 2 (10.0-50.0); Monocytes % (manual) 4 (0-12)
[2021-06-26] MEDS: CALCIUM ACETATE 667 MG CAP PO SCH (08:00)
[2021-06-26] MEDS: amLODIPine BESYLATE 5 MG TAB PO SCH (10:00)
[2021-06-26] MEDS: B-COMPLEX W/ C & FOLIC ACID(NEPHROVITE TAB) PO SCH (10:00)
[2021-06-26] MEDS: CARVEDILOL 3.125 MG TAB PO SCH (10:00)
[2021-06-26] MEDS: BUMETANIDE 2.5mg/10ml (0.25 mg/ml) INJ IV SCH (13:56)
[2021-06-26] MEDS: MEROPENEM 500MG IVPB 50 ML IV SCH ×2 (14:01→22:00)
[2021-06-26] MEDS: PANTOPRAZOLE 40 MG/10 ML VIAL INJ IV SCH (14:18)
[2021-06-26] MEDS: methylPREDNISolone SOD SUCC 40 MG/ML VL IV SCH ×2 (14:19→22:00)
[2021-06-26] MEDS: ENOXAPARIN SOD 30 MG/0.3 ML SYRINGE SC SCH (14:22)
[2021-06-26] MEDS: SODIUM CHLOR 0.9% PF (SALINE LOCK) 10ML VIAL/SYR IV SCH ×2 (17:44→22:00)
[2021-06-26] MEDS ORDERED: EPOETIN ALFA-EPBX 10,000 UNIT/1ML VIAL SC ONE (21:00)
[2021-06-27] MEDS: LEVALBUTEROL HCL 1.25 MG/3 ML NEB NEB SCH ×4 (00:36→18:51)
[2021-06-27 05:00] VITALS: BP 173/95
[2021-06-27 06:12] LABS: Hematocrit 37.1 % (36.0-46.0); Hemoglobin 11.7 g/dL (12.2-16.2); Mean Corpuscular Hemoglobin 28.6 pg (28.0-32.0); Mean Corpuscular Hgb Conc. 31.6 g/dL (32.0-36.0); Mean Corpuscular Volume 90.7 fL (80.0-100.0); Red Blood Cells 4.09 10^6/uL (4.0-5.20); Red Cell Distribution Width 19.7 % (11.8-14.3); White Blood Cell 12.4 10^3/uL (4.4-10.8)
[2021-06-27] MEDS: IPRATROPIUM BROM 0.5 MG/2.5ML INH SOL NEB SCH ×4 (06:20→18:51)
[2021-06-27 06:28] LABS: Anion Gap 18 (5-15); BUN/Creatinine Ratio 13.4; Blood Urea Nitrogen 45 mg/dL (7-18); Calcium 8.4 mg/dL (8.5-10.1); Carbon Dioxide 21 mmol/L (21-32); Chloride 102 mmol/L (98-107); GFR African American 17 mL/min; GFR Non-African American 14 mL/min; Glucose 93 mg/dL (74-106); Potassium 3.5 mmol/L (3.5-5.1); Sodium 141 mmol/L (136-145)
[2021-06-27 06:37] LABS: Basophils % (manual) 0 (0.0-2.0); Blast Cells 0; Eosinophils % (manual) 0 (0-7); Metamyelocytes % 0; Myelocytes % 0; Promyelocytes % 0; Reactive Lymphocytes 0
[2021-06-27] MEDS: InsuLIN REG 1unit/0.01ml Soln (100units/ml) SC SCH ×4 (07:00→23:47)
[2021-06-27] MEDS: ACCU-CHEK COMFORT CURVE STRIP VI SCH ×4 (07:00→23:47)
[2021-06-27] MEDS ORDERED: SODIUM CHL 0.9% 1000 ML BAG XX ONE (07:00)
[2021-06-27 07:53] LABS: Band Neutrophils % (manual) 3; Lymphocytes % (manual) 7 (10.0-50.0); Monocytes % (manual) 2 (0-12)
[2021-06-27 08:00] VITALS: BP 190/94
[2021-06-27] MEDS: hydrALAZINE HCL 20 MG/ML VL IV PRN (08:57)
[2021-06-27] MEDS: BUMETANIDE 2.5mg/10ml (0.25 mg/ml) INJ IV SCH (09:16)
[2021-06-27] MEDS: SODIUM CHLOR 0.9% PF (SALINE LOCK) 10ML VIAL/SYR IV SCH ×2 (09:16→21:07)
[2021-06-27] MEDS: PANTOPRAZOLE 40 MG/10 ML VIAL INJ IV SCH (09:16)
[2021-06-27] MEDS: methylPREDNISolone SOD SUCC 40 MG/ML VL IV SCH ×2 (09:16→21:07)
[2021-06-27] MEDS: ENOXAPARIN SOD 30 MG/0.3 ML SYRINGE SC SCH (09:16)
[2021-06-27] MEDS ORDERED: CLINIMIX PER PHARMACY 0 ML IV SCH (10:00)
[2021-06-27] MEDS ORDERED: cloNIDine 0.2 mg/24hr 7DAY PATCH TD ONE (10:00)
[2021-06-27] MEDS: MEROPENEM 500MG IVPB 50 ML IV SCH ×2 (10:21→21:06)
[2021-06-27 12:00] VITALS: BP 157/110
[2021-06-27 16:00] VITALS: BP 126/73
[2021-06-27] MEDS: MORPHINE SULFATE INJECTION 2 MG/ML SYRG IV PRN (18:53)
[2021-06-27] MEDS ORDERED: AMINO ACID INFUSION IN D10W 1,000 ML IV NR (20:00)
[2021-06-27] MEDS ORDERED: AMINO ACID ELECTROLYTE W/ CALC 1,000 ML IV SCH (20:00)
[2021-06-27] MEDS ORDERED: DEXTROSE (50%) 50ML SYRG IV PRN (20:45)
[2021-06-27] MEDS ORDERED: EPOETIN ALFA-EPBX 10,000 UNIT/1ML VIAL SC ONE (21:00)
[2021-06-27 22:00] VITALS: BP 120/82
[2021-06-27] MEDS ORDERED: InsuLIN REG 1unit/0.01ml Soln (100units/ml) SC SCH (22:00)
[2021-06-27] MEDS ORDERED: ACCU-CHEK COMFORT CURVE STRIP VI SCH (22:00)
[2021-06-28] MEDS ORDERED: DEXTROSE (50%) 50ML SYRG IV SCH
[2021-06-28] MEDS: LEVALBUTEROL HCL 1.25 MG/3 ML NEB NEB SCH ×3 (00:25→12:01)
[2021-06-28] MEDS: IPRATROPIUM BROM 0.5 MG/2.5ML INH SOL NEB SCH ×3 (00:25→12:01)
[2021-06-28] MEDS: MORPHINE SULFATE INJECTION 2 MG/ML SYRG IV PRN ×2 (03:31→21:28)
[2021-06-28 05:00] VITALS: BP 124/79
[2021-06-28 05:49] LABS: Hematocrit 37.8 % (36.0-46.0); Hemoglobin 12.2 g/dL (12.2-16.2); Mean Corpuscular Hgb Conc. 32.2 g/dL (32.0-36.0); Mean Corpuscular Volume 86.9 fL (80.0-100.0); Red Blood Cells 4.35 10^6/uL (4.0-5.20); Red Cell Distribution Width 19.6 % (11.8-14.3); White Blood Cell 16.9 10^3/uL (4.4-10.8)
[2021-06-28 05:52] LABS: Basophils % (manual) 0 (0.0-2.0); Blast Cells 0; Eosinophils % (manual) 0 (0-7); Metamyelocytes % 0; Myelocytes % 0; Promyelocytes % 0; Reactive Lymphocytes 0
[2021-06-28 05:59] LABS: Potassium 3.5 mmol/L (3.5-5.1)
[2021-06-28] MEDS: InsuLIN REG 1unit/0.01ml Soln (100units/ml) SC SCH ×2 (06:00→11:43)
[2021-06-28] MEDS: ACCU-CHEK COMFORT CURVE STRIP VI SCH ×2 (06:00→11:55)
[2021-06-28 06:09] LABS: Albumin 2.3 g/dL (3.4-5.0); Bilirubin, Total 0.6 mg/dL (0.2-1.0); Calcium 8.5 mg/dL (8.5-10.1); Magnesium 2.6 mg/dL (1.6-2.6); Phosphorus 4.8 mg/dL (2.5-4.90); Total Protein 6.3 g/dL (6.4-8.2)
[2021-06-28 06:22] LABS: Pre Albumin 27.7 mg/dL (20.0-40.0)
[2021-06-28 07:39] LABS: Band Neutrophils % (manual) 9; Lymphocytes % (manual) 3 (10.0-50.0); Monocytes % (manual) 4 (0-12)
[2021-06-28 09:00] VITALS: BP 129/82
[2021-06-28] MEDS: MEROPENEM 500MG IVPB 50 ML IV SCH (09:42)
[2021-06-28] MEDS: PANTOPRAZOLE 40 MG/10 ML VIAL INJ IV SCH (09:43)
[2021-06-28] MEDS: methylPREDNISolone SOD SUCC 40 MG/ML VL IV SCH (09:43)
[2021-06-28] MEDS: ENOXAPARIN SOD 30 MG/0.3 ML SYRINGE SC SCH (09:43)
[2021-06-28] MEDS: BUMETANIDE 2.5mg/10ml (0.25 mg/ml) INJ IV SCH (09:44)
[2021-06-28] MEDS: SODIUM CHLOR 0.9% PF (SALINE LOCK) 10ML VIAL/SYR IV SCH (09:44)
[2021-06-28 13:00] VITALS: BP 122/78
[2021-06-28] MEDS ORDERED: LORazepam 2MG/ML-1ML VIAL IV PRN (16:00)
[2021-06-28] MEDS ORDERED: MORPHINE SULFATE INJECTION 2 MG/ML SYRG IV PRN (16:00)
[2021-06-28] MEDS: LORazepam 2MG/ML-1ML VIAL IV PRN ×2 (16:23→18:36)
[2021-06-28 16:31] VITALS: BP 119/72
[2021-06-28 22:00] VITALS: BP 122/61
[2021-06-29 05:00] VITALS: BP 113/64
[2021-06-29] MEDS: MORPHINE SULFATE INJECTION 2 MG/ML SYRG IV PRN (05:00)
[2021-07-04] MEDS ORDERED: cloNIDine 0.2 mg/24hr 7DAY PATCH TD SCH (10:00)
== END 2021-06-29 06:24 | DRG 870 ==
LOC: EDUNIT# 23:29 → ER 23:34 → TELE 05-15 07:06 → TELE-WESTW 05-15 21:25 → ICU WEST 05-18 12:04 → TELE-WESTW 05-20 23:21 → UNDODISIN 05-21 16:00 → TELE-WESTW 05-21 17:03 → ICU WEST 06-14 04:31 → CENTRAL 06-26 20:28 → TELE-CENTR 06-27 07:50
PROVIDERS: ADMIT Hospitalist; ATTEND Internal Medicine
PROC: 5A09457 Assistance with Respiratory Ventilation, 24-96 Consecutive Hours, Continuous Positive Airway Pressure (ICD-10-PCS; 2021-05-17)
PROC: 05HC33Z Insertion of Infusion Device into Left Basilic Vein, Percutaneous Approach (ICD-10-PCS; 2021-05-17)
PROC: B54NZZA Ultrasonography of Left Upper Extremity Veins, Guidance (ICD-10-PCS; 2021-05-17)
PROC: 02HV33Z Insertion of Infusion Device into Superior Vena Cava, Percutaneous Approach (ICD-10-PCS; 2021-05-18)
PROC: 06HM33Z Insertion of Infusion Device into Right Femoral Vein, Percutaneous Approach (ICD-10-PCS; 2021-05-18)
PROC: B54BZZA Ultrasonography of Right Lower Extremity Veins, Guidance (ICD-10-PCS; 2021-05-18)
PROC: 5A1D70Z Performance of Urinary Filtration, Intermittent, Less than 6 Hours Per Day (ICD-10-PCS; 2021-05-18)
PROC: 5A1D70Z Performance of Urinary Filtration, Intermittent, Less than 6 Hours Per Day (ICD-10-PCS; 2021-05-20)
PROC: 0JH63XZ Insertion of Tunneled Vascular Access Device into Chest Subcutaneous Tissue and Fascia, Percutaneous Approach (ICD-10-PCS; principal; 2021-05-22)
PROC: B5181ZA Fluoroscopy of Superior Vena Cava using Low Osmolar Contrast, Guidance (ICD-10-PCS; 2021-05-22)
PROC: 02H633Z Insertion of Infusion Device into Right Atrium, Percutaneous Approach (ICD-10-PCS; 2021-05-22)
PROC: B548ZZA Ultrasonography of Superior Vena Cava, Guidance (ICD-10-PCS; 2021-05-22)
PROC: 5A1D70Z Performance of Urinary Filtration, Intermittent, Less than 6 Hours Per Day (ICD-10-PCS; 2021-05-22)
PROC: 5A1D70Z Performance of Urinary Filtration, Intermittent, Less than 6 Hours Per Day (ICD-10-PCS; 2021-05-24)
PROC: 5A1D70Z Performance of Urinary Filtration, Intermittent, Less than 6 Hours Per Day (ICD-10-PCS; 2021-05-27)
PROC: 5A1D70Z Performance of Urinary Filtration, Intermittent, Less than 6 Hours Per Day (ICD-10-PCS; 2021-05-29)
PROC: 5A1D70Z Performance of Urinary Filtration, Intermittent, Less than 6 Hours Per Day (ICD-10-PCS; 2021-05-31)
PROC: 5A1D70Z Performance of Urinary Filtration, Intermittent, Less than 6 Hours Per Day (ICD-10-PCS; 2021-06-03)
PROC: 5A1D70Z Performance of Urinary Filtration, Intermittent, Less than 6 Hours Per Day (ICD-10-PCS; 2021-06-05)
PROC: 5A09357 Assistance with Respiratory Ventilation, Less than 24 Consecutive Hours, Continuous Positive Airway Pressure (ICD-10-PCS; 2021-06-06)
PROC: 5A1D70Z Performance of Urinary Filtration, Intermittent, Less than 6 Hours Per Day (ICD-10-PCS; 2021-06-07)
PROC: 5A09457 Assistance with Respiratory Ventilation, 24-96 Consecutive Hours, Continuous Positive Airway Pressure (ICD-10-PCS; 2021-06-08)
PROC: 5A09357 Assistance with Respiratory Ventilation, Less than 24 Consecutive Hours, Continuous Positive Airway Pressure (ICD-10-PCS; 2021-06-10)
PROC: 5A1D70Z Performance of Urinary Filtration, Intermittent, Less than 6 Hours Per Day (ICD-10-PCS; 2021-06-10)
PROC: 5A09357 Assistance with Respiratory Ventilation, Less than 24 Consecutive Hours, Continuous Positive Airway Pressure (ICD-10-PCS; 2021-06-11)
PROC: 5A09357 Assistance with Respiratory Ventilation, Less than 24 Consecutive Hours, Continuous Positive Airway Pressure (ICD-10-PCS; 2021-06-12)
PROC: 5A1D70Z Performance of Urinary Filtration, Intermittent, Less than 6 Hours Per Day (ICD-10-PCS; 2021-06-12)
PROC: 5A1955Z Respiratory Ventilation, Greater than 96 Consecutive Hours (ICD-10-PCS; 2021-06-14)
PROC: 5A09357 Assistance with Respiratory Ventilation, Less than 24 Consecutive Hours, Continuous Positive Airway Pressure (ICD-10-PCS; 2021-06-14)
PROC: 0BH17EZ Insertion of Endotracheal Airway into Trachea, Via Natural or Artificial Opening (ICD-10-PCS; 2021-06-14)
PROC: 05HB33Z Insertion of Infusion Device into Right Basilic Vein, Percutaneous Approach (ICD-10-PCS; 2021-06-14)
PROC: B54MZZA Ultrasonography of Right Upper Extremity Veins, Guidance (ICD-10-PCS; 2021-06-14)
PROC: 5A1D70Z Performance of Urinary Filtration, Intermittent, Less than 6 Hours Per Day (ICD-10-PCS; 2021-06-14)
PROC: 5A1D70Z Performance of Urinary Filtration, Intermittent, Less than 6 Hours Per Day (ICD-10-PCS; 2021-06-15)
PROC: 5A1D70Z Performance of Urinary Filtration, Intermittent, Less than 6 Hours Per Day (ICD-10-PCS; 2021-06-19)
PROC: 5A1D70Z Performance of Urinary Filtration, Intermittent, Less than 6 Hours Per Day (ICD-10-PCS; 2021-06-24)
PROC: 5A09457 Assistance with Respiratory Ventilation, 24-96 Consecutive Hours, Continuous Positive Airway Pressure (ICD-10-PCS; 2021-06-25)
PROC: 5A1D70Z Performance of Urinary Filtration, Intermittent, Less than 6 Hours Per Day (ICD-10-PCS; 2021-06-27)
DX: A41.9 Sepsis, unspecified organism (principal); N17.0 Acute kidney failure with tubular necrosis; I50.33 Acute on chronic diastolic (congestive) heart failure; G92 Toxic encephalopathy; J69.0 Pneumonitis due to inhalation of food and vomit; J15.6 Pneumonia due to other Gram-negative bacteria; J96.21 Acute and chronic respiratory failure with hypoxia; N18.6 End stage renal disease; I62.00 Nontraumatic subdural hemorrhage, unspecified; E87.1 Hypo-osmolality and hyponatremia; N39.0 Urinary tract infection, site not specified; J44.1 Chronic obstructive pulmonary disease with (acute) exacerbation; G93.1 Anoxic brain damage, not elsewhere classified; E44.0 Moderate protein-calorie malnutrition; E87.0 Hyperosmolality and hypernatremia; I13.2 Hypertensive heart and chronic kidney disease with heart failure and with stage 5 chronic kidney disease, or end stage renal disease; J44.0 Chronic obstructive pulmonary disease with (acute) lower respiratory infection; G95.89 Other specified diseases of spinal cord; M48.54XA Collapsed vertebra, not elsewhere classified, thoracic region, initial encounter for fracture; Z66 Do not resuscitate; E11.65 Type 2 diabetes mellitus with hyperglycemia; E78.5 Hyperlipidemia, unspecified; G25.3 Myoclonus; E87.5 Hyperkalemia; D64.9 Anemia, unspecified; D69.6 Thrombocytopenia, unspecified; Z51.5 Encounter for palliative care; Z68.26 Body mass index [BMI] 26.0-26.9, adult; E11.22 Type 2 diabetes mellitus with diabetic chronic kidney disease; F17.210 Nicotine dependence, cigarettes, uncomplicated; G89.29 Other chronic pain; K59.00 Constipation, unspecified; M81.0 Age-related osteoporosis without current pathological fracture; M47.9 Spondylosis, unspecified; Z20.822 Contact with and (suspected) exposure to COVID-19; Z79.02 Long term (current) use of antithrombotics/antiplatelets; Z79.4 Long term (current) use of insulin; Z79.899 Other long term (current) drug therapy; Z82.49 Family history of ischemic heart disease and other diseases of the circulatory system; Z82.5 Family history of asthma and other chronic lower respiratory diseases; Z85.038 Personal history of other malignant neoplasm of large intestine; Z90.49 Acquired absence of other specified parts of digestive tract; Z90.710 Acquired absence of both cervix and uterus; Z99.2 Dependence on renal dialysis; Z99.81 Dependence on supplemental oxygen; Z88.0 Allergy status to penicillin; Z88.2 Allergy status to sulfonamides; Z91.041 Radiographic dye allergy status
CPT/HCPCS: 36415; 36561; 36569; 36600; 70450; 71045; 71101; 71250; 72128; 72131; 72146; 74018; 74176; 76775; 76937; 76942; 77001; 80048; 80053; 80074; 80202; 80307; 81001; 82040; 82306; 82378; 82533; 82565; 82570; 82607; 82668; 82728; 82746; 82805; 82962; 83036; 83540; 83550; 83605; 83615; 83690; 83735; 83880; 83930; 83935; 83970; 84100; 84132; 84156; 84300; 84439; 84443; 84478; 84484; 85007; 85014; 85018; 85025; 85027; 85045; 85379; 85610; 85652; 85730; 86022; 86141; 87040; 87070; 87077; 87186; 87205; 87426; 90935; 93005; 93306; 93925; 93970; 94002; 94003; 94640; 94660; 94668; 95819; 96361; 96365; 96375; 97110; 97116; 97163; 97530; 99152; A4565; C9113; G0378; J0330; J0696; J1100; J1450; J1642; J1815; J2185; J2250; J2405; J2704; J3490; P9047